=== PATIENT | female | born 1985 | race Caucasian/White ===

== ENCOUNTER → 2016-07-25 | Outpatient (CLI) | payer OTHER ==
[~2016-07-25] MED LIST: CEPH500C2 PO; MULT-589 PO; OXYC-57 PO; POTA-65 PO; POTA1POW PO; PRENTAB26 PO; VITBC PO
[2016-07-25 09:35] LABS: BASO % 0.2 %; BASO ABS # 0.01 K/uL (0-0.2); COMPLETE YES; HEMATOCRIT 31.7 % (37-47); LYMPH % 40.6 %; LYMPH ABS # 2.32 K/uL (1.2-3.4); MEAN CELL VOLUME 77.9 fL (80-100); MEAN CORPUSCULAR HEMOGLOBIN 25.3 pg (25-34); MEAN CORPUSCULAR HGB CONC 32.5 g/dl (32-36); MEAN PLATELET VOLUME 10.5 fL (7.4-10.4); MONO % 9.1 %; NEUT % 50.1 %; PLATELET COUNT 345 K/uL (130-400); RED BLOOD COUNT 4.07 M/uL (4.2-5.4); WHITE BLOOD COUNT 5.71 K/uL (4.8-10.8)
[2016-07-25 09:51] LABS: ALT/SGPT 20 U/L (12-78); AST/SGOT 18 U/L (15-37); CREATININE 0.87 mg/dl (0.60-1.20)
== END | disposition home or self-care (01) ==
LOC: C.LAB1850 08:11
PROVIDERS: ATTEND Obstetrics & Gynecology
DX: O12.13 Gestational proteinuria, third trimester (principal)

== ENCOUNTER → 2016-08-02 | Outpatient (CLI) | payer OTHER ==
[2016-08-02 10:47] LABS: HEMATOCRIT 30.7 % (37-47); MEAN CELL VOLUME 79.1 fL (80-100); MEAN CORPUSCULAR HEMOGLOBIN 25.3 pg (25-34); MEAN CORPUSCULAR HGB CONC 31.9 g/dl (32-36); MEAN PLATELET VOLUME 10.5 fL (7.4-10.4); PLATELET COUNT 353 K/uL (130-400); RED BLOOD COUNT 3.88 M/uL (4.2-5.4)
[2016-08-02 11:24] LABS: ALT/SGPT 21 U/L (12-78); AST/SGOT 16 U/L (15-37); BLOOD UREA NITROGEN 11 mg/dl (7-18); CALCIUM 9.2 mg/dl (8.5-10.1); CARBON DIOXIDE 29 mmol/L (21-32); CHLORIDE 102 mmol/L (98-107); CREATININE 0.63 mg/dl (0.60-1.20); GLUCOSE 87 mg/dl (70-99); POTASSIUM 3.7 mmol/L (3.5-5.1); SODIUM 138 mmol/L (136-145)
[2016-08-02 11:36] LABS: ALB/GLOB RATIO 0.5 (0.9-2); ALKALINE PHOSPHATASE 126 U/L (45-117); PREALBUMIN 24.8 mg/dl (20-40)
== END | disposition home or self-care (01) ==
LOC: C.LAB1850 10:01
PROVIDERS: ATTEND Obstetrics & Gynecology
DX: O12.13 Gestational proteinuria, third trimester (principal)

== ENCOUNTER 2016-08-04 09:45 | Outpatient (CLI) | payer OTHER ==
[~2016-08-04] VITALS: Ht 161.3 cm; Wt 55.5 kg
[~2016-08-04 09:45] MED LIST changes: -OXYC-57 PO; -POTA-65 PO; -POTA1POW PO; -PRENTAB26 PO
[2016-08-04] MEDS ORDERED: POTA1POW PO (10:32)
[2016-08-04] MEDS ORDERED: PRENTAB26 PO (10:32)
[2016-08-04 10:33] VITALS: Ht 161.3 cm; Wt 55.5 kg
[2016-08-04] MEDS ORDERED: ACETAMINOPHEN 325 MG TAB PO PRN (11:00)
[2016-08-04] MEDS ORDERED: ACETAMINOPHEN 325 MG TAB ONE (11:08)
[2016-08-04 11:31] LABS: BASO % 0.1 %; BASO ABS # 0.01 K/uL (0-0.2); COMPLETE YES; EOS % 0.1 %; HEMATOCRIT 29.5 % (37-47); IG% 0.3 %; LYMPH % 27.9 %; LYMPH ABS # 2.08 K/uL (1.2-3.4); MEAN CELL VOLUME 78.9 fL (80-100); MEAN CORPUSCULAR HEMOGLOBIN 25.4 pg (25-34); MEAN CORPUSCULAR HGB CONC 32.2 g/dl (32-36); MEAN PLATELET VOLUME 10.3 fL (7.4-10.4); NEUT % 63.6 %; PLATELET COUNT 341 K/uL (130-400); RED BLOOD COUNT 3.74 M/uL (4.2-5.4); WHITE BLOOD COUNT 7.46 K/uL (4.8-10.8)
[2016-08-04 13:46] LABS: URINE APPEARANCE CLOUDY (CLEAR); URINE BILIRUBIN NEG (NEG); URINE COLOR DK YELLOW; URINE NITRITE NEG (NEG); URINE PH >= 9.0 (4.5-7.5); URINE SPECIFIC GRAVITY 1.027 (1.000-1.030); UROBILINOGEN NEG (NEG)
[2016-08-04 13:53] LABS: MANUAL MICROSCOPIC REQUIRED? NO; REVIEW REQ? NO; SULFASALICYLIC ACID NEG (NEG)
[2016-08-04] MEDS ORDERED: OXYCODONE/ACETAMINOPHEN 5-325 TAB PO PRN (14:00)
[2016-08-04 14:03] LABS: ALT/SGPT 16 U/L (12-78); AST/SGOT 18 U/L (15-37); BLOOD UREA NITROGEN 14 mg/dl (7-18); BUN/CREATININE RATIO 22.2 (10-20); CALCIUM 8.9 mg/dl (8.5-10.1); CARBON DIOXIDE 24 mmol/L (21-32); CHLORIDE 101 mmol/L (98-107); CREATININE 0.63 mg/dl (0.60-1.20); GLUCOSE 66 mg/dl (70-99); POTASSIUM 3.8 mmol/L (3.5-5.1); SODIUM 137 mmol/L (136-145)
[2016-08-04 14:05] LABS: URINE TOTAL PROTEIN < 5.0 mg/dl (0-11.9)
--- NOTE | 2016-08-04 14:22 | DIAGNOSTIC IMAGING REPORT ---
BIOPHYSICAL PROFILE ULTRASOUND CLINICAL HISTORY: Decreased movement on physical exam. COMPARISON STUDY: Pelvic ultrasound 05/19/2014. FINDINGS: There is a single viable intrauterine gestation demonstrating a heart rate of 131 bpm. Amniotic fluid index was 17 cm. The fetus is in a cephalic presentation. The femur length is 6.93 cm consistent with a 35 week and 4 day intrauterine gestation. There is movement, tone, and breathing demonstrated during the examination. There is an anterior placenta. No evidence for subchorionic hematoma. Multiple venous lakes are identified within the placenta. IMPRESSION: 1. Biophysical profile score was 8 out of 8. 2. heart rate was 131 bpm. Electronically signed by: Panchito Sims M.D. 08/04/2016 2:20 PM Dictated Date/Time: 08/04/2016 2:17 PM
[2016-08-04] MEDS ORDERED: OXYC-57 PO (15:17)
[2016-08-04 15:18] LABS: ALKALINE PHOSPHATASE 120 U/L (45-117)
--- NOTE | 2016-08-04 15:19 | Discharge Instructions ---
Discharge Instructions Admission Reason for Admission: R/O Pain Discharge Discharge Diagnosis / Problem: AT 36 WEEKS, PELVIC PAIN Discharge Goals Goal(s): Continuing OB care Activity Recommendations Activity Limitations: resume your previous activity . Instructions / Follow-Up Instructions / Follow-Up SPECIAL CARE INSTRUCTIONS: Call Doctor if: * Regular contractions every 5 minutes or greater than contractions in one hour. * Bleeding * Water breaks or is leaking * Decreased movement * Fever >100.4 degrees F * Pain not relieved by routine measures or pain medication ordered. FOLLOW UP VISIT: Return to Labor and Delivery on for /call for appointment time . Follow-up Visit with: _OB OFFICE____ When:__TUES SCHEDULED.___ Current Hospital Diet Patient's current hospital diet: Discharge Diet Recommended Diet: Regular Diet Pending Studies Studies pending at discharge: no Medical Emergencies . Who to Call and When: Medical Emergencies: If at any time you feel your situation is an emergency, please call 911 immediately. . Non-Emergent Contact Non-Emergency issues call your: Certified Travel Counselor . . "Provider Documentation" section prepared by Nadine Callahan. VTE Core Measure Inpt VTE Proph given/why not?: Treatment not indicated [place] Drug Monitoring Program Search Results: patient reviewed within database
== END 2016-08-04 15:39 | disposition home or self-care (01) ==
LOC: C.LD 09:45 → C.OPB 09:45
PROVIDERS: ATTEND Obstetrics & Gynecology
DX: O36.8130 Decreased fetal movements, third trimester, not applicable or unspecified (principal); O12.13 Gestational proteinuria, third trimester; R10.2 Pelvic and perineal pain; Z3A.36 36 weeks gestation of pregnancy

== ENCOUNTER → 2016-08-09 | Outpatient (CLI) | payer OTHER ==
[~2016-08-09] MED LIST changes: -CEPH500C2 PO; -MULT-589 PO; +OXYC-57 PO; +POTA-65 PO; +POTA1POW PO; +PRENTAB26 PO; -VITBC PO
[2016-08-18 20:14] LABS: CHENODEOXYCHOLIC ACID 1.8 umol/L (< OR = 3.1); DEOXYCHOLIC ACID 6.9 umol/L (< OR = 2.4); TOTAL BILE ACIDS 16.7 umol/L (< OR = 6.8)
== END | disposition home or self-care (01) ==
LOC: C.LAB1850 14:01
PROVIDERS: ATTEND Obstetrics & Gynecology
DX: O26.892 Other specified pregnancy related conditions, second trimester (principal)

== ENCOUNTER 2016-08-17 06:55 | Inpatient (IN) | payer OTHER ==
[~2016-08-17] VITALS: Ht 160 cm; Wt 55.0 kg
[~2016-08-17 06:55] MED LIST changes: -POTA-65 PO
[2016-08-17] MEDS ORDERED: LACTATED RINGER'S 1000ML 1,000 ML IV PRN (07:03)
[2016-08-17] MEDS ORDERED: LACTATED RINGER'S 1000ML 1,000 ML IV SCH (07:03)
[2016-08-17] MEDS ORDERED: BUPIVACAINE 0.25% 30 ML VIAL ONE (07:11)
[2016-08-17] MEDS ORDERED: EpHEDrine SULFATE INJ 50 MG/ML AMP ONE (07:12)
[2016-08-17] MEDS ORDERED: FENTANYL CITRATE INJ 50 MCG/1 ML 2 ML VIAL ONE (07:12)
[2016-08-17] MEDS ORDERED: FENTANYL 2MCG/ML ROPIV 1.25MG/ML 100ML BAG EPI ONE (07:12)
[2016-08-17] MEDS ORDERED: PENICILLIN G POTASSIUM IV 3 MU in DEXTROSE 5% 100ML 100 ML IV PRN (07:15)
[2016-08-17] MEDS ORDERED: PENICILLIN G POTASSIUM IV 6 MU in DEXTROSE 5% 250ML 250 ML IV ONE (07:30)
[2016-08-17] MEDS ORDERED: LACTATED RINGER'S 1000ML 500 ML IV PRN (07:31)
[2016-08-17] MEDS ORDERED: NALOXONE HCL INJ 1 MG in SODIUM CHLORIDE 0.9% 1000ML 1,000 ML IV PRN (07:31)
[2016-08-17] MEDS ORDERED: FENTANYL 2MCG/ML ROPIV 1.25MG/ML 100ML BAG EPI PRN (07:45)
[2016-08-17] MEDS ORDERED: ONDANSETRON INJ 2 MG/ML 2 ML VIAL IV PRN (07:45)
[2016-08-17] MEDS ORDERED: NALBUPHINE HCL INJ 10 MG/ML AMP IV PRN (07:45)
[2016-08-17] MEDS ORDERED: DiphenhydrAMINE HCL 50 MG/ML VIAL IV PRN (07:45)
[2016-08-17] MEDS ORDERED: EpHEDrine SULFATE INJ 50 MG/ML AMP IV PRN (07:45)
[2016-08-17] MEDS ORDERED: PROMETHAZINE HCL INJ 25 MG in SODIUM CHLORIDE 0.9% 50ML 50 ML IV PRN (07:45)
[2016-08-17] MEDS ORDERED: NALOXONE HCL INJ 0.4 MG/1 ML VIAL/CARP IV PRN (07:45)
[2016-08-17 07:51] LABS: HEMATOCRIT 29.8 % (37-47); MEAN CELL VOLUME 76.8 fL (80-100); MEAN CORPUSCULAR HEMOGLOBIN 24.2 pg (25-34); MEAN PLATELET VOLUME 10.2 fL (7.4-10.4); PLATELET COUNT 363 K/uL (130-400); RED BLOOD COUNT 3.88 M/uL (4.2-5.4); WHITE BLOOD COUNT 8.48 K/uL (4.8-10.8)
[2016-08-17 07:58] LABS: MEAN CORPUSCULAR HGB CONC 31.5 g/dl (32-36)
[2016-08-17 07:59] LABS: INR 0.9 (0.9-1.1)
[2016-08-17 08:15] LABS: ALT/SGPT 17 U/L (12-78); AST/SGOT 18 U/L (15-37); CREATININE 0.81 mg/dl (0.60-1.20); URIC ACID 5.4 mg/dl (2.6-7.2)
[2016-08-17] MEDS ORDERED: OXYTOCIN 30 UNITS/500ML NSS IV ONE (08:20)
[2016-08-17] MEDS ORDERED: BENZOCAINE 20% AER SPR 82.5 GM CAN EXT PRN (09:00)
[2016-08-17] MEDS ORDERED: ACETAMINOPHEN/CODEINE 300/30MG TAB PO PRN ×2 (09:00)
[2016-08-17] MEDS ORDERED: HYDROCORTISONE ACETATE 25 MG SUPP PR PRN (09:00)
[2016-08-17] MEDS ORDERED: OXYTOCIN 30 UNITS/500ML NSS IV PRN (09:00)
[2016-08-17] MEDS ORDERED: ACETAMINOPHEN 325 MG TAB PO PRN (09:00)
[2016-08-17] MEDS ORDERED: LANOLIN OINT EXT PRN ×2 (09:00)
[2016-08-17] MEDS ORDERED: SUPERCREAM 0.870 % 15GM JAR EXT PRN (09:00)
[2016-08-17] MEDS: IBUPROFEN 600 MG TAB PO PRN ×4 (09:14→23:33)
--- NOTE | 2016-08-17 09:16 | DELIVERY SUMMARY ---
DATE OF OPERATION: 08/17/2016 DATE OF DELIVERY: 08/17/2016 PREDELIVERY DIAGNOSES: 1. A 31-year-old G7, P4-0-2-4 at 38 weeks 2 days. 2. Spontaneous labor. 3. Group B strep positive. 4. Gestational proteinuria without hypertension. 5. Pruritus gravidarum. 6. Bicornuate uterus. 7. History of stillbirths in family due to cholestasis of . POSTDELIVERY DIAGNOSES: Same. DELIVERING SURGEON: Dr. Betts. WAD PRINTING MACHINE OPERATOR: Dr. Byrne. FINDINGS: Viable female . Apgars 9 and 9. Weight pending. Please see nursing notes. First degree perineal laceration which is hemostatic. PROCEDURE: Spontaneous vaginal delivery. ESTIMATED BLOOD LOSS: 300 mL. DESCRIPTION OF DELIVERY: The patient progressed to complete with spinal anesthesia. She felt the urge to push and began to push and spontaneously vaginally delivered a viable female with Apgars 9 and 9. The head delivered. Nuchal cord x2 was noted and baby delivered through. The anterior and posterior shoulder delivered spontaneously followed by the body. The baby was placed on mother's abdomen where a spontaneous cry was heard. The nuchal cord was unwrapped from infant's neck. It was not tight. The cord was doubly clamped and cut. A segment of cord was retained for cord gases. Cord blood was obtained. The placenta spontaneously delivered intact with a 3-vessel cord. The uterus clamped down. Pitocin was given. The uterus and vagina were swept of all clots and debris. The cervix, vagina and perineum were inspected and a first degree perineal laceration was noted. This was hemostatic and therefore not repaired. Excellent hemostasis was observed. The patient and baby tolerated the procedure well and are in stable and good condition. I attest to the content of the Intraoperative Record and any orders documented therein. Any exceptio ns are noted below.
[2016-08-17 10:04] VITALS: Ht 160 cm; Wt 55.0 kg
[2016-08-17 11:20] VITALS: BP 95/52; PULSE 75; TEMP 36.7
[2016-08-17] MEDS: POTASSIUM CHLORIDE 20 MEQ TABCR PO SCH ×2 (13:55→20:51)
[2016-08-17] MEDS ORDERED: POTASSIUM CHLORIDE PWD 20 MEQ PACK PO SCH (14:00)
[2016-08-17 15:25] VITALS: BP 104/69; PULSE 74; TEMP 36.3
[2016-08-17] MEDS: DOCUSATE SODIUM 100 MG CAP PO SCH (20:07)
[2016-08-17 20:15] VITALS: BP 107/67; PULSE 88; TEMP 36.7; O2SAT 99
[2016-08-17 23:20] VITALS: BP 108/62; PULSE 85; TEMP 36.5; O2SAT 98
[2016-08-18 00:55] VITALS: BP 100/64
[2016-08-18 04:30] VITALS: BP 99/67; PULSE 79; TEMP 36.6; O2SAT 99
[2016-08-18] MEDS: IBUPROFEN 600 MG TAB PO PRN (04:44)
[2016-08-18 06:20] LABS: HEMATOCRIT 26.3 % (37-47)
--- NOTE | 2016-08-18 07:01 | Progress Note ---
Subjective Aug 18, 2016. Subjective conversation w/ patient, physical exam Ambulation: ambulating normally Voiding: no voiding problems Passing Gas: Yes Diet Tolerance: Regular Diet Lochia: Small Feeding Type: Breast Feeding Pain: No pain reported this morning Review of Systems Constitutional: No chills, No fever Respiratory: No cough, No shortness of breath Cardiac: No chest pain Breast: No breast pain Abdomen: No nausea, No pain, No vomiting Female : No dysuria Objective Vital Signs Date Time Temp Pulse Resp B/P Pulse Ox O2 Delivery O2 Flow Rate FiO2 08/18/16 04:30 36.6 79 16 99/67 99 Room Air 08/18/16 00:55 100/64 08/17/16 23:20 36.5 85 16 108/62 98 Room Air 08/17/16 23:20 98 Room Air 08/17/16 20:15 36.7 88 20 107/67 99 Room Air 08/17/16 15:50 Room Air 08/17/16 15:25 36.3 74 18 104/69 Room Air 08/17/16 11:20 36.7 75 18 95/52 08/17/16 11:20 Room Air Physical Exam General Appearance: WELL-APPEARING, WD/WN, NO APPARENT DISTRESS Respiratory/Chest: lungs clear, normal breath sounds Cardiovascular: regular rate, rhythm, no gallop, no murmur Abdomen: non tender, soft Fundus: Firm, Relation to Umbilicus (At umbilicus) Extremities: no calf tenderness Laboratory Results Last 24 Hours Test 08/17/16 07:20 08/17/16 07:30 08/18/16 05:40 Creatinine 0.81 mg/dl Estimated GFR () 113.0 Estimated GFR (Non- 97.5 Uric Acid 5.4 mg/dl Aspartate Amino Transf (AST/SGOT) 18 U/L Alanine Aminotransferase (ALT/SGPT) 17 U/L White Blood Count 8.48 K/uL Red Blood Count 3.88 M/uL Hemoglobin 9.4 g/dL 8.2 g/dL Hematocrit 29.8 % 26.3 % Mean Corpuscular Volume 76.8 fL Mean Corpuscular Hemoglobin 24.2 pg Mean Corpuscular Hemoglobin Concent 31.5 g/dl RDW Standard Deviation 42.4 fL RDW Coefficient of Variation 15.4 % Platelet Count 363 K/uL Mean Platelet Volume 10.2 fL Prothrombin Time 10.0 SECONDS Prothromb Time International Ratio 0.9 Activated Partial Thromboplast Time 24.7 SECONDS Partial Thromboplastin Ratio 1.0 Lactate Dehydrogenase 145 U/L Medications Current Inpatient Medications Medications (Trade) Dose Ordered Sig/Geraldine Route Start Time Stop Time Status Last Admin Dose Admin Penicillin G Potassium 3 mu/ Dextrose 106 ml @ 100 mls/hr Q4H PRN IV 08/17/16 07:15 08/19/16 07:14 Lactated Ringer's 1,000 ml @ 125 mls/hr Q8H IV 08/17/16 07:03 08/19/16 07:02 Lactated Ringer's (Lr 1000ml) 1,000 ml @ 999 mls/hr Q1H1M PRN IV 08/17/16 07:03 09/16/16 07:02 08/17/16 07:27 999 MLS/HR Fentanyl/ Ropivacaine (Fentanyl 2MCG/ Ml/Ropivacaine 1.25MG/ML) 100 ml PRN PRN EPI 08/17/16 07:45 08/18/16 07:44 Naloxone HCl 0.1 mg 0.1 mg UD PRN IV 08/17/16 07:45 08/18/16 07:44 Lactated Ringer's (Lr 1000ml) 500 ml @ 999 mls/hr Q31M PRN IV 08/17/16 07:31 08/18/16 07:30 Ephedrine Sulfate (EpHEDrine SULFATE INJ) 10 mg Q5M PRN IV 08/17/16 07:45 08/18/16 07:44 Diphenhydramine HCl (Benadryl Inj) 25 mg Q6H PRN IV 08/17/16 07:45 08/18/16 07:44 Nalbuphine HCl 5 mg 5 mg Q10M PRN IV 08/17/16 07:45 08/18/16 07:44 Naloxone HCl/ Sodium Chloride (Narcan Inj/Nss 1000ml) 1,002.5 ml @ 50 mls/hr Q20H3M PRN IV 08/17/16 07:31 08/18/16 07:30 Ondansetron HCl 4 mg 4 mg Q6H PRN IV 08/17/16 07:45 08/18/16 07:44 Promethazine HCl/ Sodium Chloride (Phenergan Inj/ Nss 50ml) 51 ml @ 200 mls/hr Q6H PRN IV 08/17/16 07:45 08/18/16 07:44 Oxytocin (Pitocin IV) 30 units UD PRN IV 08/17/16 09:00 09/16/16 08:59 Benzocaine (Dermoplast Aero Spr) 1 appln PRN PRN EXT 08/17/16 09:00 09/16/16 08:59 08/17/16 13:08 82.5 APPLN Cocaine HCl (Supercream 0.870% Cr) BID PRN EXT 08/17/16 09:00 08/31/16 08:59 Hydrocortisone Acetate (Anusol Hc Supp) 25 mg BID PRN IN 08/17/16 09:00 09/16/16 08:59 Lanolin (Lanolin Oint) PRN PRN EXT 08/17/16 09:00 09/16/16 08:59 Prenat Multivit/ [place]anco/Iron/Folic Ac ( Vitamin Tab) 1 tab DAILY PO 08/18/16 08:00 09/17/16 07:59 Ibuprofen (Motrin Tab) 600 mg Q4H PRN PO 08/17/16 09:00 09/16/16 08:59 08/18/16 04:44 600 MG Acetaminophen (Tylenol Tab) 650 mg Q6H PRN PO 08/17/16 09:00 09/16/16 08:59 08/17/16 16:10 650 MG Acetaminophen/ Codeine Phosphate (Tylenol w/ Codeine #3 Tab) 1 tab Q4H PRN PO 08/17/16 09:00 09/16/16 08:59 Acetaminophen/ Codeine Phosphate (Tylenol w/ Codeine #3 Tab) 2 tab Q4H PRN PO 08/17/16 09:00 09/16/16 08:59 Bisacodyl (Dulcolax Tab) 5 mg 20 PO 08/18/16 20:00 08/18/16 20:01 Bisacodyl (Dulcolax Supp) 10 mg DAILY PRN IN 08/19/16 07:00 Docusate Sodium (coLACE CAP) 100 mg BID PO 08/17/16 20:00 09/16/16 19:59 08/17/16 20:07 100 MG Potassium Chloride (Klor-Con Tab) 20 meq TID PO 08/17/16 14:00 09/16/16 13:59 08/17/16 20:51 20 MEQ Assessment and Plan Post- Day#: 1 Continue Routine Care: - Vital Signs reviewed and WNL (temp max 36.6) - Blood Type: B+, GBS Positive, Rubella Immune - Patient doing well clinically - Encourage Ambulation today - Tolerating PO Diet - Pain well controlled Resident Physician Supervision Note: I was present with Dr. Byrne during the history and exam. I discussed the case with the resident and agree with the findings and plan as documented in the note. Any exceptions or clarifications are listed here: PPD#1 doing well. Continue routine care. Anticipate discharge home tomorrow. Documented By: Xi Betts
[2016-08-18] MEDS: PRENATAL VITAMIN TAB PO SCH (07:54)
[2016-08-18] MEDS: POTASSIUM CHLORIDE 20 MEQ TABCR PO SCH ×3 (07:54→20:04)
[2016-08-18] MEDS: DOCUSATE SODIUM 100 MG CAP PO SCH ×2 (07:54→20:04)
[2016-08-18 08:00] VITALS: BP 96/61; PULSE 77; TEMP 36.5
[2016-08-18 15:30] VITALS: BP 107/75; PULSE 75; TEMP 36.4
[2016-08-18] MEDS ORDERED: BISACODYL 5 MG TABEC PO SCH (20:00)
[2016-08-19 00:35] VITALS: BP 100/67; PULSE 89; TEMP 36.5
[2016-08-19] MEDS: IBUPROFEN 600 MG TAB PO PRN ×2 (00:36→08:30)
--- NOTE | 2016-08-19 06:57 | Progress Note ---
Subjective Aug 19, 2016. Subjective conversation w/ patient, physical exam Ambulation: ambulating normally Voiding: no voiding problems Passing Gas: Yes Diet Tolerance: Regular Diet Lochia: Small Feeding Type: Breast Feeding Pain: No pain reported this morning Review of Systems Constitutional: No chills, No fever Respiratory: No cough, No shortness of breath Cardiac: No chest pain Breast: No breast pain Abdomen: No nausea, No pain, No vomiting Female : No dysuria Objective Vital Signs Date Time Temp Pulse Resp B/P Pulse Ox O2 Delivery O2 Flow Rate FiO2 08/19/16 00:35 Room Air 08/19/16 00:35 36.5 89 16 100/67 Room Air 08/18/16 15:30 36.4 75 20 107/75 Room Air 08/18/16 15:30 Room Air 08/18/16 08:00 36.5 77 16 96/61 Room Air 08/18/16 07:45 Room Air Physical Exam General Appearance: WELL-APPEARING, WD/WN, NO APPARENT DISTRESS Respiratory/Chest: lungs clear, normal breath sounds Cardiovascular: regular rate, rhythm, no gallop, no murmur Abdomen: non tender, soft Fundus: Firm, Relation to Umbilicus (1cm below umbilicus) Extremities: no calf tenderness Medications Current Inpatient Medications Medications (Trade) Dose Ordered Sig/Geraldine Route Start Time Stop Time Status Last Admin Dose Admin Penicillin G Potassium 3 mu/ Dextrose 106 ml @ 100 mls/hr Q4H PRN IV 08/17/16 07:15 08/19/16 07:14 Lactated Ringer's 1,000 ml @ 125 mls/hr Q8H IV 08/17/16 07:03 08/19/16 07:02 Lactated Ringer's (Lr 1000ml) 1,000 ml @ 999 mls/hr Q1H1M PRN IV 08/17/16 07:03 09/16/16 07:02 08/17/16 07:27 999 MLS/HR Oxytocin (Pitocin IV) 30 units UD PRN IV 08/17/16 09:00 09/16/16 08:59 Benzocaine (Dermoplast Aero Spr) 1 appln PRN PRN EXT 08/17/16 09:00 09/16/16 08:59 08/17/16 13:08 82.5 APPLN Cocaine HCl (Supercream 0.870% Cr) BID PRN EXT 08/17/16 09:00 08/31/16 08:59 Hydrocortisone Acetate (Anusol Hc Supp) 25 mg BID PRN [place] 08/17/16 09:00 09/16/16 08:59 Lanolin (Lanolin Oint) PRN PRN EXT 08/17/16 09:00 09/16/16 08:59 Prenat Multivit/ Conveyor Belt Installer/Iron/Folic Ac ( Vitamin Tab) 1 tab DAILY PO 08/18/16 08:00 09/17/16 07:59 08/18/16 07:54 1 TAB Ibuprofen (Motrin Tab) 600 mg Q4H PRN PO 08/17/16 09:00 09/16/16 08:59 08/19/16 00:36 600 MG Acetaminophen (Tylenol Tab) 650 mg Q6H PRN PO 08/17/16 09:00 09/16/16 08:59 08/17/16 16:10 650 MG Acetaminophen/ Codeine Phosphate (Tylenol w/ Codeine #3 Tab) 1 tab Q4H PRN PO 08/17/16 09:00 09/16/16 08:59 Acetaminophen/ Codeine Phosphate (Tylenol w/ Codeine #3 Tab) 2 tab Q4H PRN PO 08/17/16 09:00 09/16/16 08:59 Bisacodyl (Dulcolax Supp) 10 mg DAILY PRN [place] 08/19/16 07:00 Docusate Sodium (coLACE CAP) 100 mg BID PO 08/17/16 20:00 09/16/16 19:59 08/18/16 20:04 100 MG Potassium Chloride (Klor-Con Tab) 20 meq TID PO 08/17/16 14:00 09/16/16 13:59 08/18/16 20:04 20 MEQ Assessment and Plan Post- Day#: 2 Continue Routine Care: - Vital Signs reviewed and WNL (temp max 36.5) - Blood Type: B+, GBS Positive, Rubella Immune - Patient doing well clinically - Encourage Ambulation today - Tolerating PO Diet - Pain well controlled - Discharge today Resident Physician Supervision Note: I interviewed and examined the patient. Discussed with Dr. Byrne and agree with findings and plan as documented in the note. Any exceptions or clarifications are listed here: [None] Documented By: Trent Lawrence
--- NOTE | 2016-08-19 06:59 | Discharge Instructions ---
Discharge Instructions Admission Reason for Admission: Gestational Proteinuria Discharge Discharge Diagnosis / Problem: Vaginal Delivery Discharge Goals Goal(s): Routine recovery after delivery Medications Continue Dispensed Medications: supercream, dermaplast, tucks, lansinoh Activity Recommendations Activity Limitations: per Instructions/Follow-up section . Instructions / Follow-Up Instructions / Follow-Up ACTIVITY RECOMMENDATIONS: * Gradual return to full activity over the next 2-3 weeks. * No lifting - nothing heavier than baby over the next 2-3 weeks. * Do not engage in vigorous exercise, sexual activity or sports until cleared by your physician. * Do not drive or operate any motorized equipment until cleared by your physician. * You may shower/bathe daily. MEDICATIONS: For discomfort or pain, you may use Acetaminophen (Tylenol), Ibuprofen (Advil), or Naproxen (Aleve) following the package directions. For constipation you may use Colace following the package directions. BREAST CARE: If you are not breast feeding: * Wear a supportive bra 24 hours a day for one to two weeks. * Avoid stimulating your breasts and nipples as much as possible during the first few weeks after delivery. * When taking a shower, have the warm water hit your back, not breasts. * When your breasts feel full, apply ice packs. Usually three to four times a day helps ease the discomfort. * Take a mild pain medication (Tylenol / Motrin) when you are uncomfortable. If breast feeding: * Use breast milk to lubricate nipples. Lansinoh cream may be used for sore nipples. You do not need to remove cream prior to breast feeding. If using a different brand of cream, check the label for directions regarding removal of cream prior to nursing. * Wear a supportive bra. * If having problems with breasts or breast feeding, call a outbound sales consultant or your health care provider. EPISIOTOMY CARE: After delivery, if you have an episiotomy (stitches), the following steps will ease discomfort and aid healing. * For the first 24 hours after delivery, place ice packs next to your episiotomy to help reduce swelling. * After the first 24 hour-period, sitz baths, either portable or in the tub, are suggested. A shower with a shower arm sprayed over the episiotomy may be comforting. * Ashlie care should be done after each voiding and bowel movement. Squirt warm water from a plastic bottle over the perineum (region of the body between the anus and urinary opening) and pat dry. * Use Dermoplast to ease discomfort. Shake container. [place] directly over the episiotomy. Place a Tucks on a clean sanitary pad next to your episiotomy. SPECIAL CARE INSTRUCTIONS: When you are discharged from the hospital, it is important for you to follow the instructions listed below: * During the first week at home, you should be able to care for yourself and your baby. In addition, the usual light household activities are encouraged. * Limit your activities to the way you feel. Do not try to clean the house or move furniture. Be sensible. * If you actively engage in sports and have done so up until the time of your delivery, you may resume these activities as soon as you feel able. This may take up to one month or even longer. Use good judgment. * Continue to take your vitamins for at least six weeks after the of your baby. * Your diet need not be limited unless you were on a special diet before your delivery. Breast-feeding mothers need around 2500 calories per day and at least 64-80 ounces of fluid per day (8 to 10 glasses). * You should eat foods from the four major food groups. Crash diets or fad diets are to be avoided. Eating lean meats, fresh fruits and vegetables, low-fat dairy products, high fiber foods and a regular exercise program, will help you get back to your pre- weight without putting your health at risk. * Constipation is sometimes a problem after delivery. Take a mild laxative as needed. If breast feeding, Milk of Magnesia is acceptable to use. You may use a suppository or Fleets enema if no episiotomy. * A daily shower or tub bath is suggested. Be sure to thoroughly and gently dry the perineum. * A bloody vaginal discharge will usually continue until around four weeks post . A small amount of bleeding may continue for as long as six weeks. Vaginal discharge changes from the bright red bleeding after delivery to pink then brownish and finally yellowish-pink before becoming white and disappearing. * Bleeding may increase with activity. Your first period may come in 4-8 weeks. If you are breast feeding, your period may be delayed even longer. * [place] (sex) can begin whenever both you and your partner feel comfortable and do not have any form of genital infection. It is recommended that you wait at least six weeks for internal and external healing to occur. If you have questions, please talk to your health care practitioner. A condom should be used to prevent infection and . * Foreplay, gentle intercourse and lubrication is very important the first several times to prevent pain. A water-based lubricant such as K-Y jelly or Astroglide may be used. * If you have RH negative blood and your baby is RH positive, you will receive RHOGAM by injection prior to discharge. The nurse will give you a card to keep with you that has the date and place that you received RHOGAM after delivery. * During your care, you had a Rubella screen done to check for the presence of rubella antibodies in your blood. If your test was negative, you will receive a Rubella vaccine prior to discharge. This vaccine may cause a fever, soreness at the injection site and flu-like symptoms. If these symptoms persist, notify your health care practitioner. is not advised for one month after a Rubella vaccine. * Verbalizes understanding of car seat law as reviewed with patient nursing. * Car Seat hand-out given and reviewed with patient by nursing. * Shaken baby information reviewed with patient by nursing. Call you doctor if: * Heavy bleeding (saturating several pads an hour) or passing clots the size of your fist. * A fever >101 degrees F (38.3 degrees C) on two occasions four hours apart and /or chills. * Unusual pain in the pelvic or vaginal areas. * "Baby Blues" lasting longer than two weeks. If you have any questions or concerns, call your health care practitioner at . FOLLOW UP VISIT: * Please call the office at to schedule a 6 week examination. It is important you keep this appointment. It is important for you to make arrangements for either yearly or twice yearly check-ups thereafter. Current Hospital Diet Patient's current hospital diet: Regular Diet Discharge Diet Recommended Diet: Regular Diet Pending Studies Studies pending at discharge: no Medical Emergencies . Who to Call and When: Medical Emergencies: If at any time you feel your situation is an emergency, please call 911 immediately. . Non-Emergent Contact Non-Emergency issues call your: Forest Management Professor . . "Provider Documentation" section prepared by Elia Byrne. VTE Core Measure Inpt VTE Proph given/why not?: Treatment not indicated
[2016-08-19] MEDS ORDERED: BISACODYL 10 MG SUPP PR PRN (07:00)
[2016-08-19 07:50] VITALS: BP 103/69; PULSE 80; TEMP 36.6
[2016-08-19] MEDS: PRENATAL VITAMIN TAB PO SCH (08:28)
[2016-08-19] MEDS: DOCUSATE SODIUM 100 MG CAP PO SCH (08:28)
[2016-08-19] MEDS: POTASSIUM CHLORIDE 20 MEQ TABCR PO SCH (08:29)
[2016-08-19 10:20] VITALS: BP_DIAS 69; PULSE 80; TEMP 36.6
== END 2016-08-19 10:20 | disposition home or self-care (01) | DRG 775 ==
LOC: C.OPB 06:55 → C.LD 06:58 → C.OPB 07:05 → C.OBG 11:27
PROVIDERS: ADMIT Obstetrics & Gynecology; ATTEND Obstetrics & Gynecology
PROC: 10E0XZZ Delivery of Products of Conception, External Approach (ICD-10-PCS; principal; 2016-08-17)
DX: O12.13 Gestational proteinuria, third trimester (principal); O09.93 Supervision of high risk pregnancy, unspecified, third trimester; Z3A.38 38 weeks gestation of pregnancy; O99.824 Streptococcus B carrier state complicating childbirth; O26.893 Other specified pregnancy related conditions, third trimester; O34.03 Maternal care for unspecified congenital malformation of uterus, third trimester; O70.0 First degree perineal laceration during delivery; O69.81X0 Labor and delivery complicated by cord around neck, without compression, not applicable or unspecified; Z37.0 Single live birth; Z84.89 Family history of other specified conditions

== ENCOUNTER 2016-08-28 17:12 | Inpatient (IN) | payer OTHER ==
[~2016-08-28] VITALS: Ht 162.6 cm; Wt 55.0 kg
[~2016-08-28 17:12] MED LIST changes: -OXYC-57 PO; -POTA1POW PO
[2016-08-28] MEDS ORDERED: SODIUM CHLORIDE 0.9% 1000ML 1,000 ML IV STA ×3 (18:57→23:03)
--- NOTE | 2016-08-28 19:02 | EMERGENCY ROOM VISIT NOTE ---
History Report prepared by Rolo: Mk Aviles Under the Supervision of: Dr. Wilmer Daniel M.D. First contact with patient: 18:51 Chief Complaint: OTHER COMPLAINT Stated Complaint: ACUTE RENAL FAILURE History of Present Illness The patient is a 31 year old female who presents to the Emergency Room with complaints of acute abnormal blood work that was acquired earlier today. The patient was seen at [facility] at approximately 1400 today because she has not been feeling well for the past week. She received a call from [facility] informing her that her lab work showed acute renal failure. The patient's symptoms include intermittent lightheadedness, headaches, and lower back pain. The back pain is worse on the right side than the left. The patient also notes that she has been urinating infrequently despite keeping up with fluids and has also been experiencing burning with urination. The patient gave to her fifth child 9 days ago. The child was a female born at 28 weeks gestation. The was born at [facility] and was not transferred. The patient is the . She did not have any complications of her previous pregnancies. Source of History: patient Onset: today Position: other (blood) Quality: other (abnormal labs) Timing: other (acute) Associated Symptoms: + back pain, + headache, + urinary symptoms Review of Systems See HPI for pertinent positives & negatives. A total of 10 systems reviewed and were otherwise negative. Past Medical & Surgical Medical Problems: (1) Gestational proteinuria (2) Hypercalcemia (3) Normal labor and delivery (4) Perineal pain in female (5) with 36 completed weeks gestation (6) Vaginal delivery Family History No significant family history Social History Smoking Status: Never Smoker Marital Status: Housing Status: lives with family Occupation Status: unemployed Current/Historical Medications Scheduled Multivit/Min/Iron/Fol Ac/Pren ( Vitamin), 1 TAB PO DAILY Potassium Chloride (Potassium Chloride ER), 20 MEQ PO TID Allergies Coded Allergies: No Known Allergies (Verified , 08/04/16) Physical Exam Vital Signs Date Time Temp Pulse Resp B/P Pulse Ox O2 Delivery O2 Flow Rate FiO2 08/28/16 21:40 102 16 133/82 08/28/16 20:42 68 18 124/83 94 Room Air 08/28/16 19:27 88 16 137/94 96 08/28/16 19:25 73 08/28/16 18:43 86 18 135/92 97 Room Air 08/28/16 17:24 37.3 114 17 123/86 96 Room Air Physical Exam GENERAL: Patient is a healthy-appearing well-nourished HEAD: Normocephalic atraumatic EYES: Ocular movements intact pupils equal and react to light OROPHARYNX mucous membranes are moist no exudates present no erythema or edema present NECK: Supple no nuchal rigidity CHEST: Good equal expansion LUNGS: Clear and equal to auscultation CARDIAC: Normal S1 and S2 ABDOMEN: Soft nontender no guarding BACK: No CVA tenderness EXTREMITIES: No pain upon palpation normal muscle strength in all groups no clubbing cyanosis or edema NEURO: Patient is following commands is answering questions appropriately. Alert and oriented x3 Cranial Nerves 2-12 grossly intact Medical Decision & Procedures ER Provider Diagnostic Interpretation: US results as stated below per my review and radiologist interpretation: EXAMINATION: RENAL ULTRASOUND CLINICAL HISTORY: Acute renal failure COMPARISON STUDY: 12/23/2013 FINDINGS: The right kidney measures 12.0 cm. The left kidney measures 13.4 cm.. There is no evidence of hydronephrosis. There are no renal masses. There is mild increase in renal cortical echogenicity, consistent with medical renal disease. No bladder abnormalities are visualized. Bilateral ureteral jets were visualized. There is fluid and debris within a thickened endometrium. IMPRESSION : 1. Increased renal cortical echogenicity, consistent with medical renal disease 2. No evidence of hydronephrosis 3. Incidentally noted fluid and debris within the endometrial cavity Electronically signed by: Otilio Bruno M.D. 08/28/2016 8:31 PM Dictated Date/Time: 08/28/2016 8:29 PM Laboratory Results Test 08/28/16 19:19 08/28/16 20:39 08/28/16 21:28 Prothrombin Time 10.2 SECONDS (9.0-12.0) Prothromb Time International Ratio 1.0 (0.9-1.1) Lipase 193 U/L (73-393) Lyme Disease IgG Antibody NEG (NEG) Lyme Disease IgM Antibody NEG (NEG) Urine Color YELLOW Urine Appearance CLOUDY (CLEAR) Urine pH >= 9.0 (4.5-7.5) Urine Specific [place] 1.013 (1.000-1.030) Urine Protein 1+ (NEG) Urine Glucose (UA) NEG (NEG) Urine Ketones NEG (NEG) Urine Occult Blood NEG (NEG) Urine Nitrite NEG (NEG) Urine Bilirubin NEG (NEG) Urine Urobilinogen NEG (NEG) Urine Leukocyte Esterase TRACE (NEG) Urine WBC (Auto) 10-30 /hpf (0-5) Urine RBC (Auto) 0-4 /hpf (0-4) Urine Hyaline Casts (Auto) 1-5 /lpf (0-5) Urine Epithelial Cells (Auto) >30 /lpf (0-5) Urine Bacteria (Auto) NEG (NEG) Urine Renal Epithelial Cells 5-10 /lpf (0-5) Phosphorus Level 4.5 mg/dl (2.5-4.9) Thyroid Stimulating Hormone (TSH) 0.825 uIu/ml (0.300-4.500) Parathyroid Hormone (Intact) < 5.5 pg/mL (11.1-79.5) Labs reviewed by ED physician. Medications Administered Medications (Trade) Dose Ordered Sig/Geraldine Route Start Time Stop Time Status Last Admin Dose Admin Sodium Chloride (Nss 1000ml) 1,000 ml @ 999 mls/hr Q1H1M STAT IV 08/28/16 18:57 08/28/16 19:57 DC 08/28/16 19:26 999 MLS/HR Hydromorphone HCl (Dilaudid Inj) 0.5 mg NOW STAT IV 08/28/16 19:38 08/28/16 19:41 DC 08/28/16 19:51 0.5 MG Ondansetron HCl (Zofran Inj) 4 mg NOW STAT IV 08/28/16 19:38 08/28/16 19:41 DC 08/28/16 19:51 4 MG Acetaminophen 1000 mg 1,000 mg NOW STAT PO 08/28/16 19:38 08/28/16 19:41 DC 08/28/16 19:51 1,000 MG Sodium Chloride (Nss 1000ml) 1,000 ml @ 999 mls/hr Q1H1M STAT IV 08/28/16 20:47 08/28/16 21:47 DC 08/28/16 20:49 999 MLS/HR Potassium Chloride 40 meq 40 meq NOW STAT PO 08/28/16 20:53 08/28/16 20:56 DC 08/28/16 20:58 40 MEQ Sodium Chloride (Nss 1000ml) 1,000 ml @ 999 mls/hr Q1H1M ONCE IV 08/28/16 21:45 08/28/16 22:45 DC 08/28/16 22:30 999 MLS/HR Potassium Chloride (Klor-Con M10) 40 meq NOW STAT PO 08/28/16 22:35 08/28/16 23:45 DC 08/29/16 00:38 40 MEQ ED Course 1851: Past medical records reviewed. The patient was evaluated in room A12a. A complete history and physical examination was performed. 1856: NSS 1000 ml @ 999 mls/hr. 1937: Tylenol 1000 mg PO, Zofran 4 mg IV, Dilaudid 0.5 mg IV. 2046: NSS 1000 ml @ 999 mls/hr. 2048: Discussed the case with Madeline Valiente. The patient will be evaluated. Medical Decision Differential diagnosis: Etiologies such as appendicitis, diverticulitis, PUD, biliary pathology, UTI, pancreatitis, obstruction, mesenteric ischemia, aortic pathology, infections, inflammatory bowel disease, renal colic, as well as others were entertained. This is a 31-year-old female who recently gave via vaginal delivery. The patient reports that she has not been feeling well is complaining of a headache. She has no evidence of meningitis encephalitis on examination. The patient's creatinine is elevated. For this reason she was sent into the emergency department. She received normal saline bolus in the emergency department 2. I did discuss the case with the hospitalist who agreed to admit the patient. Patient was in agreement with the treatment plan. Consults Time Called: 2041 Consulting Physician: Madeline aVliente. Returned Call: [phone]: Discussed the case with Madeline Valiente. The patient will be evaluated. Impression Primary Impression: ARF (acute renal failure) Scribe Attestation The scribe's documentation has been prepared under my direction and personally reviewed by me in its entirety. I confirm that the note above accurately reflects all work, treatment, procedures, and medical decision making performed by me. Departure Information Dispostion Being Evaluated By Hospitalist Referrals Fernando Arreguin, D.OTisha (PCP) Patient Instructions My [facility] Problem Qualifiers Primary Impression: ARF (acute renal failure) Acute renal failure type: unspecified Qualified Codes: N17.9 - Acute kidney failure, unspecified
[2016-08-28] MEDS ORDERED: HYDROmorphone INJ 0.5 MG/0.5 ML SYR IV STA (19:38)
[2016-08-28] MEDS ORDERED: ACETAMINOPHEN 500 MG TAB PO STA (19:38)
[2016-08-28] MEDS ORDERED: ONDANSETRON INJ 2 MG/ML 2 ML VIAL IV STA (19:38)
[2016-08-28 19:40] LABS: BASO % 0.1 %; BASO ABS # 0.01 K/uL (0-0.2); COMPLETE YES; EOS % 0.1 %; HEMATOCRIT 34.8 % (37-47); IG% 0.3 %; LYMPH % 20.3 %; LYMPH ABS # 1.44 K/uL (1.2-3.4); MEAN CELL VOLUME 79.1 fL (80-100); MEAN CORPUSCULAR HGB CONC 31.6 g/dl (32-36); MEAN PLATELET VOLUME 9.8 fL (7.4-10.4); MONO % 8.3 %; NEUT % 70.9 %; PLATELET COUNT 509 K/uL (130-400); WHITE BLOOD COUNT 7.09 K/uL (4.8-10.8)
[2016-08-28 20:04] LABS: ALT/SGPT 30 U/L (12-78); AST/SGOT 17 U/L (15-37); BLOOD UREA NITROGEN 30 mg/dl (7-18); BUN/CREATININE RATIO 12.1 (10-20); CHLORIDE 82 mmol/L (98-107); GLUCOSE 87 mg/dl (70-99); POTASSIUM 3.1 mmol/L (3.5-5.1); SODIUM 136 mmol/L (136-145)
[2016-08-28 20:06] LABS: ALKALINE PHOSPHATASE 126 U/L (45-117)
--- NOTE | 2016-08-28 20:33 | DIAGNOSTIC IMAGING REPORT ---
EXAMINATION: RENAL ULTRASOUND CLINICAL HISTORY: Acute renal failure COMPARISON STUDY: 12/23/2013 FINDINGS: The right kidney measures 12.0 cm. The left kidney measures 13.4 cm.. There is no evidence of hydronephrosis. There are no renal masses. There is mild increase in renal cortical echogenicity, consistent with medical renal disease. No bladder abnormalities are visualized. Bilateral ureteral jets were visualized. There is fluid and debris within a thickened endometrium. IMPRESSION : 1. Increased renal cortical echogenicity, consistent with medical renal disease 2. No evidence of hydronephrosis 3. Incidentally noted fluid and debris within the endometrial cavity Electronically signed by: Otilio Bruno M.D. 08/28/2016 8:31 PM Dictated Date/Time: 08/28/2016 8:29 PM
[2016-08-28 20:37] LABS: LYME DISEASE AB IGG NEG (NEG); LYME DISEASE AB IGM NEG (NEG)
[2016-08-28 20:42] LABS: CALCIUM 16.2 mg/dl (8.5-10.1); CARBON DIOXIDE 53 mmol/L (21-32)
[2016-08-28] MEDS ORDERED: POTA-65 PO (20:44)
[2016-08-28] MEDS ORDERED: POTASSIUM CHLORIDE 10 MEQ TABCR PO STA ×2 (20:53→22:35)
[2016-08-28 21:20] LABS: MANUAL MICROSCOPIC REQUIRED? NO; REVIEW REQ? YES; URINE APPEARANCE CLOUDY (CLEAR); URINE BILIRUBIN NEG (NEG); URINE COLOR YELLOW; URINE EPITHELIAL CELL AUTO >30 /lpf (0-5); URINE NITRITE NEG (NEG); URINE PH >= 9.0 (4.5-7.5); URINE SPECIFIC GRAVITY 1.013 (1.000-1.030); UROBILINOGEN NEG (NEG)
[2016-08-28 21:22] LABS: SULFASALICYLIC ACID POS (NEG)
[2016-08-28] MEDS ORDERED: SODIUM CHLORIDE 0.9% 1000ML 1,000 ML IV ONE (21:45)
[2016-08-28 22:15] LABS: BUN/CREATININE RATIO 12.4 (10-20); CALCIUM 13.7 mg/dl (8.5-10.1); CREATININE 2.3 mg/dl (0.60-1.20); MAGNESIUM 1.7 mg/dl (1.8-2.4); PHOSPHORUS 4.5 mg/dl (2.5-4.9); POTASSIUM 3.1 mmol/L (3.5-5.1); THYROID STIMULATING HORMONE 0.825 uIu/ml (0.300-4.500)
[2016-08-28] MEDS ORDERED: ACETAMINOPHEN 325 MG TAB PO PRN (23:15)
[2016-08-28] MEDS ORDERED: HYDROmorphone INJ 0.5 MG/0.5 ML SYR IV PRN (23:15)
[2016-08-28] MEDS ORDERED: ONDANSETRON INJ 2 MG/ML 2 ML VIAL IV PRN (23:15)
[2016-08-28] MEDS ORDERED: TRAMADOL HCL 50 MG TAB PO PRN (23:15)
[2016-08-28] MEDS ORDERED: LORAZEPAM 2 MG/ML 1 ML VIAL IV PRN (23:15)
[2016-08-28 23:27] LABS: PARTIAL THROMBOPLASTIN RATIO 0.8; PROTHROMBIN TIME (PATIENT) 10.2 SECONDS (9.0-12.0)
[2016-08-28] MEDS ORDERED: FAMOTIDINE 20 MG TAB PO STA (23:45)
[2016-08-28 23:50] VITALS: BP 93/56; PULSE 86; TEMP 36.6; O2SAT 99
[2016-08-29] VITALS (8 sets, daily range): BP systolic 93–122; BP diastolic 56–82; PULSE 79–95; TEMP 36.6–37.2; O2SAT 94–100; Ht 162.6 cm; Wt 55.0 kg
[2016-08-29] MEDS ORDERED: MAGNESIUM SULFATE 1GM / D5W 1 GM in PREMIXED IN D5W 100 ML IV STA (00:21)
[2016-08-29] MEDS ORDERED: LORAZEPAM INJ 0.5 MG in SYRINGE 0.75 ML IV PRN (01:45)
[2016-08-29] MEDS: NSS + 20MEQ KCL 1000ML 1,000 ML IV SCH ×3 (01:56→11:58)
[2016-08-29] MEDS: CEFTRIAXONE SOD INJ 1 GM in DEXTROSE 5% ADD-VANTAGE 50ML 50 ML IV SCH (02:07)
[2016-08-29 02:57] LABS: BASO % 0.1 %; BASO ABS # 0.01 K/uL (0-0.2); COMPLETE YES; HEMATOCRIT 32.9 % (37-47); IG% 0.1 %; LYMPH % 24.7 %; LYMPH ABS # 1.79 K/uL (1.2-3.4); MEAN CELL VOLUME 79.9 fL (80-100); MEAN CORPUSCULAR HEMOGLOBIN 24.5 pg (25-34); MEAN CORPUSCULAR HGB CONC 30.7 g/dl (32-36); MEAN PLATELET VOLUME 9.8 fL (7.4-10.4); MONO % 8.1 %; PLATELET COUNT 385 K/uL (130-400); RED BLOOD COUNT 4.12 M/uL (4.2-5.4); WHITE BLOOD COUNT 7.24 K/uL (4.8-10.8)
[2016-08-29 03:19] LABS: BLOOD UREA NITROGEN 29 mg/dl (7-18); BUN/CREATININE RATIO 13.1 (10-20); CALCIUM 13.1 mg/dl (8.5-10.1); CARBON DIOXIDE 37 mmol/L (21-32); CHLORIDE 93 mmol/L (98-107); GLUCOSE 77 mg/dl (70-99); MAGNESIUM 2.2 mg/dl (1.8-2.4); POTASSIUM 3.7 mmol/L (3.5-5.1); SODIUM 138 mmol/L (136-145)
--- NOTE | 2016-08-29 04:40 | HISTORY & PHYSICAL EXAMINATION ---
DATE OF ADMISSION: 08/28/2016 PRIMARY CARE DOCTOR: Dr. Arreguin. Hx obtained from px and records. CHIEF COMPLAINT: Dizziness, abnormal blood work. HISTORY OF PRESENT ILLNESS: Medical history significant for chronic anemia (baseline hemoglobin 9, GERD. Recent confinement last April 2016 for hypokalemia 2 to poor PO intake. Patient has had worsening reflux symptoms months prior to childbirth. Patient would take at least 4 tablets of OTC TUMS (calcium carbonate) daily. Sopped her home Famotidine. Two weeks ago the patient confined under OB service for labor. Patient had spontaneous vaginal delivery. After discharge, fair sleep and appetite. No chest pain, no shortness of breath. A good amount of vaginal bleeding which is usual for her w/ previous deliveries in the past. No fever, no chills. She was feeling weak, dizzy, and had bitemporal headache symptoms. No chest pain, no shortness of breath, complaining of dysuria, some flank pain. Seen at the PCP's office. Outpatient blood work showed a creatinine of 2.4, calcium was 16.3. Patient sent to the Emergency Room for evaluation. MEDICAL HISTORY: As above. SURGERIES: She has had vaginal deliveries in the past. HOME MEDICATIONS: Include Tums p.r.n., multivitamins, potassium chloride. ALLERGIES: No known drug allergies. FAMILY HISTORY: Bone cancer, brain cancer. PERSONAL AND SOCIAL HISTORY: Nonsmoker, no chronic intake of alcoholic beverages. Homemaker. REVIEW OF SYSTEMS: As per HPI, all other ROS negative. PHYSICAL EXAMINATION: VITAL SIGNS: Blood pressure was noted to be BP 136/92, CA 86, RR 18 T 37.3 O2 98RA. GENERAL: Noted to be slightly uncomfortable, no respiratory distress. SKIN: Pallor. HEENT: Pale palp conjunctivae, dry mucosa. NECK: No JVD. supple CHEST: Clear to auscultation. HEART: Regular rate and rhythm. ABDOMEN: Soft. BACK : minimal R flank tenderness. EXTREMITIES: No edema. no tenderness NEUROLOGIC: No gross focality. LABORATORY DATA: Hemoglobin was noted to be 11, platelets 509. Sodium 137, potassium 4.1, chloride 82, BUN 30, CO2 was 53, creatinine was 2.5, calcium was 16.2. Repeat calcium after 13.6 srum phos 4.5. UA : WBCs positive, hyaline cast. ASSESSMENT: 1. 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 Patient admits to taking calcium carbonate tabs (at least 4 tabs daily for a number of months now) for reflux symptoms during and after. good response to initial IV hydration administered at the ER 2. vaginal bleeding Hg actually better than baseline suspect hemoconcentration "heavy" bleeding usual for her from previous pregnancies as per px 3. symptomatic urinary tract infection no sepsis 4. flank pain, rule out kidney stone. PLAN: GMF Monitor serum calcium response to NSS. Nephrology consult RE hypercalcemia. Patient instructed not to take calcium carbonate tablets for now. Reinstitute patient's H2 hermann for GERD sx (dosed for renal function) ff urine CS, IV Ceftriaxone for now CT abdomen and pelvis RE flank pain Gynecology consult RE vaginal bleeding/eval ER physician already in touch with OB on-call for Dr. Betts. DVT prophylaxis, SCDs RE vaginal bleeding. Full code. MTDD
[2016-08-29] MEDS ORDERED: GI COCKTAIL PO ONE (05:00)
[2016-08-29] MEDS ORDERED: ALUMINUM/MAGNESIUM SUSP 18 ML, LIDOCAINE HCL 2% VISCOUS SOLN 6 ML, BARCODE IDENTIFIER 1 EA PO STA ×2 (05:02)
[2016-08-29] MEDS ORDERED: TRAMADOL HCL 50 MG TAB PO PRN (05:15)
--- NOTE | 2016-08-29 07:06 | DIAGNOSTIC IMAGING REPORT ---
CT OF THE ABDOMEN AND PELVIS WITHOUT CONTRAST CLINICAL HISTORY: Abdominal pain. Flank pain. Acute renal failure. Status post vaginal delivery August 17, 2016. COMPARISON STUDY: CT of the abdomen and pelvis May 11, 2014 and renal ultrasound August 28, 2016. TECHNIQUE: Axial images of the abdomen and pelvis were obtained without IV contrast. Images were reviewed in the axial, sagittal, and coronal planes. FINDINGS: Lung bases are clear. There is a 2 mm right renal calculus. No ureteral calculi are present and there is no hydronephrosis. A 2.2 cm hypodense right hepatic lobe lesion was shown on prior imaging studies. This likely reflects a hemangioma. Unenhanced images of the spleen, adrenal glands and pancreas are normal. There is no biliary or pancreatic ductal dilatation. There is no evidence for a bowel obstruction. Moderate uterine enlargement is noted. The appendix is normal. Skeletal structures are unremarkable. There is no lymphadenopathy. IMPRESSION: 1. 2 mm right renal calculus. No ureteral calculi or hydronephrosis. 2. Moderate uterine enlargement consistent with recent state. 3. Normal appendix. 4. No bowel obstruction. Electronically signed by: Matias Parsons M.D. 08/29/2016 7:05 AM Dictated Date/Time: 08/29/2016 6:58 AM
--- NOTE | 2016-08-29 07:47 | DIAGNOSTIC IMAGING REPORT ---
CHEST ONE VIEW PORTABLE CLINICAL HISTORY: Chest pain. COMPARISON STUDY: Chest radiograph May 13, 2015. FINDINGS: Lung volumes are normal. Lungs are clear. There is no pneumothorax or pleural effusion. Cardiac size is normal. Mediastinal contours are normal. IMPRESSION: No acute cardiopulmonary findings. Electronically signed by: Matias Parsons M.D. 08/29/2016 7:46 AM Dictated Date/Time: 08/29/2016 7:45 AM
[2016-08-29] MEDS: FAMOTIDINE 20 MG TAB PO SCH ×2 (08:02→20:41)
[2016-08-29 08:22] LABS: ALKALINE PHOSPHATASE 96 U/L (45-117); ALT/SGPT 20 U/L (12-78); AST/SGOT 16 U/L (15-37); URIC ACID 7.2 mg/dl (2.6-7.2)
--- NOTE | 2016-08-29 11:21 | Medical Consult ---
Consultation Note Consultation Note OBGYN Consultation Reason for consult: acute renal failure, 10 days' Physician ordering consult: Dr Tena CC: "not feeling well" HPI: Pt is 31yoF, PPD#12 s/p vaginal delivery. Her was complicated by gestational proteinuria without hypertension, pruritis gravidarum , and fetus small for gestational age. Her delivery was uneventful. Bile acid labs were ordered during the for her pruritis to diagnose cholestasis of , but resulted 2 days after delivery (elevated, 16.7). She began to feel unwell the day after she was discharged from Labor & Delivery. She felt weak/run-down. She went to her PCP, who discovered creatinine 2.5 on labs. She was sent to [facility] ER for admit. She denies fever/chills/vomiting. Has had some nausea, but good appetite. Normal bowels. Feels like she has been urinating frequently, but also complains of burning with urination. Moderate lochia, appropriate for post- state. going well. She notes the baby is doing well. PMH: denies PSH: D&E x 2 (missed ) ROS: negative except as above Allergies: NKDA Meds: keflex, potassamin Soc: denies alcohol/tobacco/drug use FamHx: h/o cholestasis of Vitals: Date Time Temp Pulse Resp B/P Pulse Ox O2 Delivery O2 Flow Rate FiO2 08/29/16 07:20 Room Air 08/29/16 07:20 36.8 79 16 109/76 94 Room Air 08/29/16 04:50 36.8 95 18 118/79 96 Room Air 08/29/16 03:00 36.6 93 18 113/78 100 Room Air 08/29/16 03:00 100 Room Air 08/29/16 00:00 95 Room Air 08/29/16 00:00 36.8 79 16 108/72 95 Room Air 08/29/16 00:00 36.8 79 16 108/72 95 Room Air 08/28/16 23:55 86 17 114/73 94 08/28/16 23:25 86 17 114/73 94 Room Air 08/28/16 23:15 97 08/28/16 21:40 102 16 133/82 08/28/16 20:42 68 18 124/83 94 Room Air 08/28/16 19:27 88 16 137/94 96 08/28/16 19:25 73 08/28/16 18:43 86 18 135/92 97 Room Air 08/28/16 17:24 37.3 114 17 123/86 96 Room Air General: AAOx3 NAD. Ambulating in room. Appears pale. CV: [id number] L: CTAB Abd: soft, fundus firm/below umbilicus. Mild tenderness at liver edge. Back: No CVAT Ext: no edema, no calf tenderness 08/29/16 02:45 Red Blood Count 4.12, Mean Corpuscular Volume 79.9, Mean Corpuscular Hemoglobin 24.5, Mean Corpuscular Hemoglobin Concent 30.7, Mean Platelet Volume 9.8, Neutrophils (%) (Auto) 67.0, Lymphocytes (%) (Auto) 24.7, Monocytes (%) (Auto) 8.1, Eosinophils (%) (Auto) 0.0, Basophils (%) (Auto) 0.1, Neutrophils # (Auto) 4.84, Lymphocytes # (Auto) 1.79, Monocytes # (Auto) 0.59, Eosinophils # (Auto) 0.00, Basophils # (Auto) 0.01 08/29/16 02:45 Test 08/28/16 19:19 08/28/16 20:39 08/28/16 21:28 08/29/16 02:45 Prothrombin Time 10.2 SECONDS (9.0-12.0) Prothromb Time International Ratio 1.0 (0.9-1.1) Lipase 193 U/L (73-393) Lyme Disease IgG Antibody NEG (NEG) Lyme Disease IgM Antibody NEG (NEG) Urine Color YELLOW Urine Appearance CLOUDY (CLEAR) Urine pH >= 9.0 (4.5-7.5) Urine Specific [place] 1.013 (1.000-1.030) Urine Protein 1+ (NEG) Urine Glucose (UA) NEG (NEG) Urine Ketones NEG (NEG) Urine Occult Blood NEG (NEG) Urine Nitrite NEG (NEG) Urine Bilirubin NEG (NEG) Urine Urobilinogen NEG (NEG) Urine Leukocyte Esterase TRACE (NEG) Urine WBC (Auto) 10-30 /hpf (0-5) Urine RBC (Auto) 0-4 /hpf (0-4) Urine Hyaline Casts (Auto) 1-5 /lpf (0-5) Urine Epithelial Cells (Auto) >30 /lpf (0-5) Urine Bacteria (Auto) NEG (NEG) Urine Renal Epithelial Cells 5-10 /lpf (0-5) Phosphorus Level 4.5 mg/dl (2.5-4.9) Thyroid Stimulating Hormone (TSH) 0.825 uIu/ml (0.300-4.500) Parathyroid Hormone (Intact) < 5.5 pg/mL (11.1-79.5) White Blood Count 7.24 K/uL (4.8-10.8) Red Blood Count 4.12 M/uL (4.2-5.4) Hemoglobin 10.1 g/dL (12.0-16.0) Hematocrit 32.9 % (37-47) Mean Corpuscular Volume 79.9 fL (80-100) Mean Corpuscular Hemoglobin 24.5 pg (25-34) Mean Corpuscular Hemoglobin Concent 30.7 g/dl (32-36) Platelet Count 385 K/uL (130-400) Mean Platelet Volume 9.8 fL (7.4-10.4) Neutrophils (%) (Auto) 67.0 % Lymphocytes (%) (Auto) 24.7 % Monocytes (%) (Auto) 8.1 % Eosinophils (%) (Auto) 0.0 % Basophils (%) (Auto) 0.1 % Neutrophils # (Auto) 4.84 K/uL (1.4-6.5) Lymphocytes # (Auto) 1.79 K/uL (1.2-3.4) Monocytes # (Auto) 0.59 K/uL (0.11-0.59) Eosinophils # (Auto) 0.00 K/uL (0-0.5) Basophils # (Auto) 0.01 K/uL (0-0.2) RDW Standard Deviation 47.4 fL (36.4-46.3) RDW Coefficient of Variation 16.5 % (11.5-14.5) Immature Granulocyte % (Auto) 0.1 % Immature Granulocyte # (Auto) 0.01 K/uL (0.00-0.02) Anion Gap 8.0 mmol/L (3-11) Est Creatinine Clear Calc Drug Dose 31.2 ml/min Estimated GFR () 33.7 Estimated GFR (Non- 29.1 BUN/Creatinine Ratio 13.1 (10-20) Calcium Level 13.1 mg/dl (8.5-10.1) Magnesium Level 2.2 mg/dl (1.8-2.4) Troponin I < 0.015 ng/ml (0-0.045) 25-Hydroxy Vitamin D Total 35.1 ng/ml (30-100) Test 08/29/16 07:15 08/29/16 09:55 Activated Partial Thromboplast Time 24.7 SECONDS (21.0-31.0) Partial Thromboplastin Ratio 1.0 Uric Acid 7.2 mg/dl (2.6-7.2) Total Bilirubin 0.2 mg/dl (0.2-1) Direct Bilirubin < 0.1 mg/dl (0-0.2) Aspartate Amino Transf (AST/SGOT) 16 U/L (15-37) Alanine Aminotransferase (ALT/SGPT) 20 U/L (12-78) Alkaline Phosphatase 96 U/L (45-117) Total Protein 5.9 gm/dl (6.4-8.2) Albumin 2.3 gm/dl (3.4-5.0) A/P 1. 31 yo PPD#12 s/p vaginal delivery with h/o cholestasis of and gestational proteinuria without hypertension 2. Acute renal failure From the obstetrical perspective, preeclampsia is not likely, as the patient has not had elevated blood pressures during or in the period. HELLP syndrome is also not likely given that her platelets, coags, and liver function testing is normal. Hemolytic-uremic syndrome can manifest in the antepartum or period with elevated creatinine. HUS is unlikely given normal CBC and coags, but I ordered peripheral blood smear to rule out hemolysis. If peripheral blood smear is negative, this makes TTP/HUS unlikely as well. Cholestasis of is likely unrelated - as it is typically self-limiting , and resolves upon delivery of the baby within 48 hours. Patient's liver enzymes are normal. Patient's acute kidney failure does not fit with any of the above obstetrical diagnoses, therefore I do not think it is related to her recent / delivery. Recommend consultation with nephrology for further workup, evaluation and recommendations. I ordered a breast pump for the patient, as she is currently . The current medications prescribed are all considered safe while . Thank you for the consult - please contact with questions.
[2016-08-29 13:43] LABS: BUN/CREATININE RATIO 12.7 (10-20); CALCIUM 10.3 mg/dl (8.5-10.1); CREATININE 1.8 mg/dl (0.60-1.20); POTASSIUM 4.7 mmol/L (3.5-5.1)
--- NOTE | 2016-08-29 13:57 | NEPHROLOGY CONSULTATION ---
DATE OF CONSULTATION: 08/29/2016 ATTENDING OF RECORD: Dr. Tena. REASON FOR CONSULTATION: NANDO and hypercalcemia. HISTORY OF PRESENT ILLNESS: This is 31-year-old old female who recently delivered vaginally a baby girl. The patient has several kids at home. The patient was coming in with dizziness and found to have a calcium level of 16 and a creatinine up to 2.5. The patient's bicarbonate was also notably elevated in the 50s. The patient states she has been eating and drinking okay. When the patient left the hospital after delivery of child, the patient's creatinine was 0.8. Comes in with a creatinine of 2.5, bicarbonate was 24 at time of discharge after delivery and comes in with a bicarbonate of 53. Calcium level was normal at 8.9, and comes in with calcium level of 16.2. The patient has been taking several calcium supplements for acid reflux but states sheis eating and drinking well and denies any nausea, vomiting or diarrhea. The patient was given aggressive IV fluid resuscitation. Calcium level has improved from 16.2 down to 13.1. Her CO2 has gone from 53 down to 37. Her creatinine has improved from 2.5 down to 2.2. She was also noted to have a low potassium of 3.1 and required aggressive potassium supplementation and now Potassium is 3.7. Her PTH was appropriately low. A UA showed no blood, but did show protein. Renal ultrasound showed a kidney stone, as well as some mild increase in cortical echogenicity suggestive of mild medical renal disease. The patient denies any hypertension. She has been and has a normal milk production. denies any nsaids. PAST MEDICAL HISTORY: The patient does have a past medical history of chronic anemia of unclear etiology, acid reflux and chronic hypokalemia. PAST SURGICAL HISTORY: Denies any surgical history. HOME MEDICATIONS: Potassium which she takes chronically, Tums as needed, vitamin. CURRENT MEDICATIONS: Reviewed FAMILY HISTORY: Significant for bone cancer and brain cancer. SOCIAL HISTORY: No smoking, no alcohol, no drugs. Lives at home with her children. REVIEW OF SYSTEMS: Positive weakness. Positive dizziness. Positive headaches. Denies any shortness of breath. Denies any chest pain. Mild nausea. No vomiting. No diarrhea. Appetite is still good. All other review of systems otherwise negative. PHYSICAL EXAMINATION: VITAL SIGNS: Temperature 37.1, pulse 82, respiratory rate 16, blood pressure 105/73, pulse ox 96% on room air. GENERAL: Awake, alert, oriented x3. HEENT: Eyes, no scleral icterus. Mucous membranes appear dry. NECK: Supple. PULMONARY: Clear to auscultation. CARDIAC: Regular rate and rhythm. ABDOMEN: Bowel sounds positive, soft, nontender. EXTREMITIES: No significant clubbing, cyanosis or edema. NEUROLOGICALLY: Nonfocal. DERMATOLOGIC: No rash or ulcers noted. LABORATORY: White count 7.2, H\T\H 10.1 and 32.9, platelet count is 385. Repeat labs are pending. Last labs we have, a sodium level 138, potassium level of 3.7, chloride of 93, bicarbonate 37, BUN is 29, creatinine is 2.2, glucose 77, calcium 13.1, down from 16.2. Magnesium level is up to 2.2 from 1.7. Troponin negative. PTH low at less than 5.5. TSH 0.825. Vitamin D of 35. Albumin was 3.6; however, with fluids has gone down to 2.3. Uric acid level was elevated at 7.2. Lyme is negative. UA showed a pH of greater than 9, specific gravity of 1.013, 1+ protein, trace leukocyte esterase, 10-30 WBCs. INR is 1. Urine culture is pending. Renal ultrasound showed a right kidney of 12 cm, left kidney of 13.4 cm. No evidence of hydro. No renal mass. Mild increase in renal cortical echogenicity consistent with medical renal disease. Chest x-ray showed no acute cardiopulmonary findings. Abdominal and pelvis CT showed a 2 mm right renal calculus and moderate uterine enlargement consistent with recent state. Normal appendix. IMPRESSION AND PLAN: 1. Acute kidney injury, nonoliguric in the setting of high calcium, elevated bicarbonate and low potassium. Appears to be acute kidney injury from volume depletion with hypercalcemia significant enough to cause acute tubular necrosis. Creatinine is improving and hopefully will eventually get back down to baseline. Will continue aggressive IV fluids, appears to be tolerating the fluids well. With the low potassium and elevated bicarbonate, question surreptitious use of diuretics. The patient does take potassium chronically as an outpatient. For now, would encourage fluids. Of note, her albumin level is low with appropriate hydration and she does have an underlying anemia as well. Screening for myeloma to be thorough. Question if patient has the beginnings of Bartter's or Gitelman's syndrome where patients lose potassium and magnesium. Will need to do repeat lab work as an outpatient to follow the levels. 2. Hypercalcemia. PTH is appropriately low and so unlikely to have primary hyperparathyroidism. A PTHrP and KASSIE level and SPEP are all still pending. 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 Calcium levels are improving with fluids. Hopefully, this is just from taking too much Tums in the setting of volume depleted state. Hypercalcemia in and of itself is severe enough to cause volume depletion as well. So overall, this could be significant hypercalcemia causing significant volume depletion whether the patient was eating and drinking her normal amount or not. Will need to do lab work as an outpatient once calcium levels have normalized to make sure her labs remain stable. Her labs upon discharge after delivery were all relatively normal with a creatinine of 0.8, calcium level of 8.9, creatinine of 0.81, bicarbonate of 24. So overall, we have acute kidney injury, significant contraction alkalosis, hypercalcemia, hypokalemia, hypomagnesemia, nutritional deficiency with low albumins, and chronic anemia as an outpatient of unclear etiology, which will need more thorough workup as an outpatient. For now, continue aggressive fluid resuscitation and monitor for signs of volume overload and follow labs repleting electrolytes accordingly. Appreciate consultation. PAO
[2016-08-29] MEDS: SODIUM CHLORIDE 0.9% 1000ML 1,000 ML IV SCH ×2 (15:10→23:59)
--- NOTE | 2016-08-29 16:04 | Progress Note ---
Medicine Progress Note Date & Time of Visit: Aug 29, 2016 at 15:50. Subjective Patient notes a headache this morning, that she has had since delivery. She also notes right sided mid back pain that she has had since delivery. +Nausea, no vomiting or diarrhea. Has been taking 4 TUMS per day for the past 2 months for heartburn. Objective Last 8 Hrs Date Time Temp Pulse Resp B/P Pulse Ox O2 Delivery O2 Flow Rate FiO2 08/29/16 11:30 37.1 82 16 105/73 96 Room Air Physical Exam: General-sleeping but arousable Eyes-EOMI; no scleral icterus ENT-poor dentition Neck-no stridor; trachea midline Lungs-CTA bilaterally; no wheezes/crackles Heart-RRR; no m/r/g Abdomen-soft; NTND; nBS Extremities-no c/c/e; no deformity Back-no CVA tenderness Neuro-no gross focal deficits Laboratory Results: Last 24 Hours Test 08/28/16 19:19 08/28/16 20:39 08/28/16 21:28 08/29/16 02:45 White Blood Count 7.09 K/uL 7.24 K/uL Red Blood Count 4.40 M/uL 4.12 M/uL Hemoglobin 11.0 g/dL 10.1 g/dL Hematocrit 34.8 % 32.9 % Mean Corpuscular Volume 79.1 fL 79.9 fL Mean Corpuscular Hemoglobin 25.0 pg 24.5 pg Mean Corpuscular Hemoglobin Concent 31.6 g/dl 30.7 g/dl Platelet Count 509 K/uL 385 K/uL Mean Platelet Volume 9.8 fL 9.8 fL Neutrophils (%) (Auto) 70.9 % 67.0 % Lymphocytes (%) (Auto) 20.3 % 24.7 % Monocytes (%) (Auto) 8.3 % 8.1 % Eosinophils (%) (Auto) 0.1 % 0.0 % Basophils (%) (Auto) 0.1 % 0.1 % Neutrophils # (Auto) 5.02 K/uL 4.84 K/uL Lymphocytes # (Auto) 1.44 K/uL 1.79 K/uL Monocytes # (Auto) 0.59 K/uL 0.59 K/uL Eosinophils # (Auto) 0.01 K/uL 0.00 K/uL Basophils # (Auto) 0.01 K/uL 0.01 K/uL RDW Standard Deviation 46.7 fL 47.4 fL RDW Coefficient of Variation 16.2 % 16.5 % Immature Granulocyte % (Auto) 0.3 % 0.1 % Immature Granulocyte # (Auto) 0.02 K/uL 0.01 K/uL Prothrombin Time 10.2 SECONDS Prothromb Time International Ratio 1.0 Activated Partial Thromboplast Time 21.9 SECONDS Partial Thromboplastin Ratio 0.8 Sodium Level 136 mmol/L 139 mmol/L 138 mmol/L Potassium Level 3.1 mmol/L 3.1 mmol/L 3.7 mmol/L Chloride Level 82 mmol/L 89 mmol/L 93 mmol/L Carbon Dioxide Level 53 mmol/L 45 mmol/L 37 mmol/L Anion Gap 1.0 mmol/L 6.0 mmol/L 8.0 mmol/L Blood Urea Nitrogen 30 mg/dl 29 mg/dl 29 mg/dl Creatinine 2.50 mg/dl 2.30 mg/dl 2.20 mg/dl Est Creatinine Clear Calc Drug Dose 27.4 ml/min 29.8 ml/min 31.2 ml/min Estimated GFR () 28.9 32.0 33.7 Estimated GFR (Non- 24.9 27.6 29.1 BUN/Creatinine Ratio 12.1 12.4 13.1 Random Glucose 87 mg/dl 84 mg/dl 77 mg/dl Calcium Level 16.2 mg/dl 13.7 mg/dl 13.1 mg/dl Total Bilirubin 0.4 mg/dl Direct Bilirubin < 0.1 mg/dl Aspartate Amino Transf (AST/SGOT) 17 U/L Alanine Aminotransferase (ALT/SGPT) 30 U/L Alkaline Phosphatase 126 U/L Total Protein 8.5 gm/dl Albumin 3.6 gm/dl Lipase 193 U/L Lyme Disease IgG Antibody NEG Lyme Disease IgM Antibody NEG Urine Color YELLOW Urine Appearance CLOUDY Urine pH >= 9.0 Urine Specific [place] 1.013 Urine Protein 1+ Urine Glucose (UA) NEG Urine Ketones NEG Urine Occult Blood NEG Urine Nitrite NEG Urine Bilirubin NEG Urine Urobilinogen NEG Urine Leukocyte Esterase TRACE Urine WBC (Auto) 10-30 /hpf Urine RBC (Auto) 0-4 /hpf Urine Hyaline Casts (Auto) 1-5 /lpf Urine Epithelial Cells (Auto) >30 /lpf Urine Bacteria (Auto) NEG Urine Renal Epithelial Cells 5-10 /lpf Phosphorus Level 4.5 mg/dl Magnesium Level 1.7 mg/dl 2.2 mg/dl Thyroid Stimulating Hormone (TSH) 0.825 uIu/ml Parathyroid Hormone (Intact) < 5.5 pg/mL Troponin I < 0.015 ng/ml 25-Hydroxy Vitamin D Total 35.1 ng/ml Test 08/29/16 07:15 08/29/16 12:00 Activated Partial Thromboplast Time 24.7 SECONDS Partial Thromboplastin Ratio 1.0 Uric Acid 7.2 mg/dl Total Bilirubin 0.2 mg/dl Direct Bilirubin < 0.1 mg/dl Aspartate Amino Transf (AST/SGOT) 16 U/L Alanine Aminotransferase (ALT/SGPT) 20 U/L Alkaline Phosphatase 96 U/L Total Protein 5.9 gm/dl Albumin 2.3 gm/dl Sodium Level 140 mmol/L Potassium Level 4.7 mmol/L Chloride Level 102 mmol/L Carbon Dioxide Level 32 mmol/L Anion Gap 6.0 mmol/L Blood Urea Nitrogen 23 mg/dl Creatinine 1.80 mg/dl Est Creatinine Clear Calc Drug Dose 38.2 ml/min Estimated GFR () 43.0 Estimated GFR (Non- 37.1 BUN/Creatinine Ratio 12.7 Random Glucose 75 mg/dl Calcium Level 10.3 mg/dl Date/Time Source Procedure Growth Status 08/28/16 21:11 Urine , Clean Catch Urine Culture Pending Received Assessment & Plan Acute renal insufficiency - possibly related to volume depletion and hypercalcemia - Nephrology consulted - continue IVF's - creatinine downtrending - OB consulted and no appreciable obstetrical cause of renal insufficiency - renal ultrasound unremarkable - CT a/p with 2mm right renal calculi Hypercalcemia - PTH appropriately low - PTHrP, KASSIE level, anti-ds DNA, complements, and SPEP pending - 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 Increased renal cortical echogenicity, consistent with medical renal disease 2. No evidence of hydronephrosis 3. Incidentally noted fluid and debris within the endometrial cavity CT a/p 1. 2 mm right renal calculus. No ureteral calculi or hydronephrosis. 2. Moderate uterine enlargement consistent with recent state. 3. Normal appendix. 4. No bowel obstruction. Current Inpatient Medications: Current Inpatient Medications Medications (Trade) Dose Ordered Sig/Geraldine Route Start Time Stop Time Status Last Admin Dose Admin Ceftriaxone Sodium/Dextrose (Rocephin Inj/ Dextrose Add-[place] 50ML) 50 ml @ 100 mls/hr Q24H IV 08/29/16 01:00 09/08/16 00:59 08/29/16 02:07 100 MLS/HR Famotidine (Pepcid Tab) 10 mg BID PO 08/29/16 09:00 09/28/16 08:59 08/29/16 08:02 10 MG Acetaminophen (Tylenol Tab) 650 mg Q4H PRN PO 08/28/16 23:15 09/27/16 23:14 Ondansetron HCl (Zofran Inj) 4 mg Q6H PRN IV 08/28/16 23:15 09/27/16 23:14 Tramadol HCl not relieved by tylenol @ Q6H PRN PO 08/29/16 05:15 09/28/16 05:14 08/29/16 15:40 50 MG Sodium Chloride (Nss 1000ml) 1,000 ml @ 125 mls/hr Q8H IV 08/29/16 15:00 09/28/16 14:59 08/29/16 15:10 125 MLS/HR
--- NOTE | 2016-08-29 22:58 | DIAGNOSTIC IMAGING REPORT ---
MRV brain MRV HEAD WITHOUT CONTRAST CLINICAL HISTORY: r/o thrombus; headache; headache TECHNIQUE: Transaxial acquisition with multi axial reformatted images COMPARISON STUDY: None FINDINGS: Limited study due to severe patient motion. All major intracranial venous structures are patent. A major thrombus component is not felt to be present. Transverse sinuses are intact. IMPRESSION: Limited, but essentially negative, MRV of the brain . Specifically, no significant evidence for intracranial venous thrombosis Electronically signed by: Douglas Rice M.D. 08/29/2016 10:57 PM Dictated Date/Time: 08/29/2016 10:56 PM
[2016-08-30] MEDS: CEFTRIAXONE SOD INJ 1 GM in DEXTROSE 5% ADD-VANTAGE 50ML 50 ML IV SCH (01:28)
[2016-08-30 07:37] LABS: HEMATOCRIT 24.6 % (37-47); MEAN CELL VOLUME 78.3 fL (80-100); MEAN CORPUSCULAR HEMOGLOBIN 24.2 pg (25-34); MEAN CORPUSCULAR HGB CONC 30.9 g/dl (32-36); MEAN PLATELET VOLUME 9.5 fL (7.4-10.4); PLATELET COUNT 345 K/uL (130-400); RED BLOOD COUNT 3.14 M/uL (4.2-5.4); WHITE BLOOD COUNT 5.64 K/uL (4.8-10.8)
[2016-08-30 07:55] LABS: BUN/CREATININE RATIO 14.6 (10-20); CALCIUM 8.9 mg/dl (8.5-10.1); CREATININE 1.4 mg/dl (0.60-1.20); MAGNESIUM 1.7 mg/dl (1.8-2.4); POTASSIUM 3.9 mmol/L (3.5-5.1)
[2016-08-30 08:00] VITALS: BP 109/67; PULSE 90; TEMP 36.8; O2SAT 97
[2016-08-30] MEDS: FAMOTIDINE 20 MG TAB PO SCH (08:03)
[2016-08-30] MEDS: SODIUM CHLORIDE 0.9% 1000ML 1,000 ML IV SCH (08:04)
--- NOTE | 2016-08-30 08:33 | OB/GYN Progress Note ---
[employer]NAGER [employer] Progress Note Date of Service Aug 30, 2016. Subjective conversation w/ patient, physical exam Voiding: no voiding problems Passing Gas: Yes Diet Tolerance: Regular Diet Lochia: Small Feeding Type: Breast Feeding Notes: feeling better today. lochia is small. pumping breast milk & saving it. states she is still very itchy all over. no rash or welts noted by patient. . this started about 10 weeks ago while she was . initial bile acids results were normal but the most recent results from 08/17/16 were elevated. she had delivered on 08/17/16. strong family history of cholestasis Review of Systems Constitutional: No chills, No fatigue, No fever, No problem reported, No sweats , No weakness, No weight loss Breast: No breast lump, No breast pain, No change in shape, No nipple discharge , No problem reported, No see HPI Abdomen: No GI bleeding, No constipation, No diarrhea, No nausea, No pain, No problem reported, No vomiting Objective Vital Signs Date Time Temp Pulse Resp B/P Pulse Ox O2 Delivery O2 Flow Rate FiO2 08/29/16 23:50 36.6 18 93/56 99 Room Air 08/29/16 23:50 Room Air 08/29/16 19:15 37.2 88 16 104/65 94 Room Air 08/29/16 15:30 37.1 88 16 122/82 96 Room Air 08/29/16 15:30 Room Air 08/29/16 11:30 37.1 82 16 105/73 96 Room Air Physical Exam General Appearance: WELL-APPEARING, NO APPARENT DISTRESS Abdomen: non tender, soft Fundus: Firm (just above pubic symphysis.) Extremities: no pedal edema, no calf tenderness Laboratory Results Last 24 Hours Test 08/29/16 12:00 08/30/16 07:09 Sodium Level 140 mmol/L 142 mmol/L Potassium Level 4.7 mmol/L 3.9 mmol/L Chloride Level 102 mmol/L 108 mmol/L Carbon Dioxide Level 32 mmol/L 26 mmol/L Anion Gap 6.0 mmol/L 8.0 mmol/L Blood Urea Nitrogen 23 mg/dl 20 mg/dl Creatinine 1.80 mg/dl 1.40 mg/dl Est Creatinine Clear Calc Drug Dose 38.2 ml/min 49.2 ml/min Estimated GFR () 43.0 58.3 Estimated GFR (Non- 37.1 50.3 BUN/Creatinine Ratio 12.7 14.6 Random Glucose 75 mg/dl 84 mg/dl Calcium Level 10.3 mg/dl 8.9 mg/dl White Blood Count 5.64 K/uL Red Blood Count 3.14 M/uL Hemoglobin 7.6 g/dL Hematocrit 24.6 % Mean Corpuscular Volume 78.3 fL Mean Corpuscular Hemoglobin 24.2 pg Mean Corpuscular Hemoglobin Concent 30.9 g/dl RDW Standard Deviation 48.9 fL RDW Coefficient of Variation 17.1 % Platelet Count 345 K/uL Mean Platelet Volume 9.5 fL Magnesium Level 1.7 mg/dl Assessment and Plan Continue Routine Care: progress is normal. await results of labs from today & hospitalist's recommendations.
--- NOTE | 2016-08-30 10:09 | Nephrology Progress Note ---
Nephrology Progress Note Date of Service: Aug 30, 2016. Subjective 31 yo female who developed severe acid reflux after delivery and was taking large amounts of tums and presented with significant contraction alkalosis and hypercalcemia and nando. given iv fluids and pt feels much better and eating well now. pt wants to go home to be with her family. pt says she has had significant menses since age 12 where she develops significant anemia and on iron supplement/ vitamin. her mother and sister also with signfiicant menses and iron issues. pt also has been questioned by other doctors in the past about any possible eating disorders which she continues to adamantly deny. pt has been on potassium supplement for at least the last two years of unclear etiology. Objective Date Time Temp Pulse Resp B/P Pulse Ox O2 Delivery O2 Flow Rate FiO2 08/30/16 08:00 36.8 90 18 109/67 97 Room Air 08/29/16 23:50 36.6 18 93/56 99 Room Air 08/29/16 23:50 Room Air 08/29/16 19:15 37.2 88 16 104/65 94 Room Air 08/29/16 15:30 37.1 88 16 122/82 96 Room Air 08/29/16 15:30 Room Air 08/29/16 11:30 37.1 82 16 105/73 96 Room Air Physical Exam: General-aaox3 Eyes-no scleral icterus ENT-mmm Neck-supple Lungs-cta Heart-rrr Abdomen-bs+/s/nt Extremities-no c/c/e Neuro-nonfocal Current Inpatient Medications Medications (Trade) Dose Ordered Sig/Geraldine Route Start Time Stop Time Status Last Admin Dose Admin Ceftriaxone Sodium/Dextrose (Rocephin Inj/ Dextrose Add-[place] 50ML) 50 ml @ 100 mls/hr Q24H IV 08/29/16 01:00 09/08/16 00:59 08/30/16 01:28 100 MLS/HR Famotidine (Pepcid Tab) 10 mg BID PO 08/29/16 09:00 09/28/16 08:59 08/30/16 08:03 10 MG Acetaminophen (Tylenol Tab) 650 mg Q4H PRN PO 08/28/16 23:15 09/27/16 23:14 08/29/16 16:52 650 MG Ondansetron HCl (Zofran Inj) 4 mg Q6H PRN IV 08/28/16 23:15 09/27/16 23:14 Tramadol HCl not relieved by tylenol @ Q6H PRN PO 08/29/16 05:15 09/28/16 05:14 08/29/16 15:40 50 MG Sodium Chloride (Nss 1000ml) 1,000 ml @ 125 mls/hr Q8H IV 08/29/16 15:00 09/28/16 14:59 08/30/16 08:04 125 MLS/HR Last 24 Hours Test 08/29/16 12:00 08/30/16 07:09 Sodium Level 140 mmol/L 142 mmol/L Potassium Level 4.7 mmol/L 3.9 mmol/L Chloride Level 102 mmol/L 108 mmol/L Carbon Dioxide Level 32 mmol/L 26 mmol/L Anion Gap 6.0 mmol/L 8.0 mmol/L Blood Urea Nitrogen 23 mg/dl 20 mg/dl Creatinine 1.80 mg/dl 1.40 mg/dl Est Creatinine Clear Calc Drug Dose 38.2 ml/min 49.2 ml/min Estimated GFR () 43.0 58.3 Estimated GFR (Non- 37.1 50.3 BUN/Creatinine Ratio 12.7 14.6 Random Glucose 75 mg/dl 84 mg/dl Calcium Level 10.3 mg/dl 8.9 mg/dl White Blood Count 5.64 K/uL Red Blood Count 3.14 M/uL Hemoglobin 7.6 g/dL Hematocrit 24.6 % Mean Corpuscular Volume 78.3 fL Mean Corpuscular Hemoglobin 24.2 pg Mean Corpuscular Hemoglobin Concent 30.9 g/dl RDW Standard Deviation 48.9 fL RDW Coefficient of Variation 17.1 % Platelet Count 345 K/uL Mean Platelet Volume 9.5 fL Magnesium Level 1.7 mg/dl Assessment & Plan 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 no more tums. improving with aggressive iv fluids. spep, pthrp and chaitanya levels are pending. pth was appropriately low. calcium levels have improved. Anemia-likely iron deficiency anemia-bleeding has improved. continue the oral iron supplement. pt breast feeding and hesitant to give iv iron in that setting. will need to follow hg levels as an outpt and transfuse if hg under 7. should hopefully start to improve. would recommend initiating control pill with the 6 week checkup and defer to passenger representative for that. NANDO-likely prerenal-not back to baseline and would continue iv fluids till the afternoon and consider discharge at that time with repeat cbc, bmp on sunday.
--- NOTE | 2016-08-30 11:39 | Discharge Instructions ---
Discharge Instructions Admission Reason for Admission: Hypercalcemia Discharge Discharge Diagnosis / Problem: Elevated calcium and acute renal failure Discharge Goals Goal(s): Improve disease control Activity Recommendations Activity Limitations: resume your previous activity . Instructions / Follow-Up Instructions / Follow-Up Please follow up with Family Medicine Dr. Baird on September 04 at 10:10am. You will need to have blood work done at this visit (CBC, BMP). Please follow up with Nephrology Dr. Pickard on September 13 at 1:40pm. Please drink plenty of water each day. Please do not take TUMS every day. You can take over the counter Pepcid as needed for heartburn. Current Hospital Diet Patient's current hospital diet: Regular Diet Discharge Diet Recommended Diet: Regular Diet Pending Studies Studies pending at discharge: yes List of pending studies: Electrophoresis, KASSIE level, PTHrP Medical Emergencies . Who to Call and When: Medical Emergencies: If at any time you feel your situation is an emergency, please call 911 immediately. . Non-Emergent Contact Non-Emergency issues call your: Primary Care Provider . . "Provider Documentation" section prepared by Silvia Antonio. VTE Core Measure Inpt VTE Proph given/why not?: SCD's
[2016-08-30 12:45] VITALS: BP 109/67; PULSE 90; TEMP 36.8; O2SAT 97
--- NOTE | 2016-08-30 20:03 | Discharge Summary ---
Discharge Summary Admission Date: Aug 28, 2016 at 22:35 Discharge Date: Aug 30, 2016 Discharge Disposition: Home Principal Diagnosis: Hypercalcemia Secondary Diagnoses/Problems: Acute kidney failure Procedures: Renal ultrasound 1. Increased renal cortical echogenicity, consistent with medical renal disease 2. No evidence of hydronephrosis 3. Incidentally noted fluid and debris within the endometrial cavity CT a/p 1. 2 mm right renal calculus. No ureteral calculi or hydronephrosis. 2. Moderate uterine enlargement consistent with recent state. 3. Normal appendix. 4. No bowel obstruction. Consultations: Nephrology Obstetrics Medication Reconciliation Continued Medications: Multivit/Min/Iron/Fol Ac/Pren ( Vitamin) Tab 1 TAB PO DAILY, TAB Potassium Chloride (Potassium Chloride ER) 20 Meq Tab 20 MEQ PO TID Admission Information HPI (per Admitting provider): Medical history significant for chronic anemia (baseline hemoglobin 9, GERD. Recent confinement last April 2016 for hypokalemia 2 to poor PO intake. Patient has had worsening reflux symptoms months prior to childbirth. Patient would take at least 4 tablets of OTC TUMS (calcium carbonate) daily. Sopped her home Famotidine. Two weeks ago the patient confined under OB service for labor. Patient had spontaneous vaginal delivery. After discharge, fair sleep and appetite. No chest pain, no shortness of breath. A good amount of vaginal bleeding which is usual for her w/ previous deliveries in the past. No fever, no chills. She was feeling weak, dizzy, and had bitemporal headache symptoms. No chest pain, no shortness of breath, complaining of dysuria, some flank pain. Seen at the PCP's office. Outpatient blood work showed a creatinine of 2.4, calcium was 16.3. Patient sent to the Emergency Room for evaluation. Physical Exam (per Admitting): VITAL SIGNS: Blood pressure was noted to be BP 136/92, RI 86, RR 18 T 37.3 O2 98RA. GENERAL: Noted to be slightly uncomfortable, no respiratory distress. SKIN: Pallor. HEENT: Pale palp conjunctivae, dry mucosa. NECK: No JVD. supple CHEST: Clear to auscultation. HEART: Regular rate and rhythm. ABDOMEN: Soft. BACK : minimal R flank tenderness. EXTREMITIES: No edema. no tenderness NEUROLOGIC: No gross focality. Hospital Course Patient was admitted with hypercalcemia and acute kidney failure. Nephrology was consulted. This was felt to be possibly related to dehydration and milk- alkali from TUMS usage. Patient received aggressive IVF's with resolution of hypercalcemia and improvement of renal function. OB was consulted and felt that there was no appreciable obstetrical cause of renal insufficiency . Renal ultrasound was unremarkable. CT a/p showed a 2mm right renal calculi. PTH was appropriately low in the setting of hypercalcemia. PTHrP, KASSIE level, anti-ds DNA , complements, and SPEP were pending at the time of discharge. Patient had been started on ceftriaxone for possible UTI given her c/o dysuria. However urinalysis showed a bland sediment and urine culture had mixed probable skin enrique. Patient was not continued on antibiotics upon discharge. Patient did c/o a headache since her delivery. MRV was negative for cerebral thrombus. Headache resolved on the day of discharge. Patient has chronic anemia with a baseline Hgb around 9. Hgb decreased to 7.6 on the day of discharge, likely partly dilutional from the aggressive IVF resuscitation. Lochia was decreasing. Patient will need a CBC and BMP checked at her follow up appointment to ensure resolution and stabilization of labs abnormalities during hospitalization. Patient deemed stable for discharge with Family Medicine follow up. PE on discharge: General- awake; alert; NAD Eyes- EOMI; no scleral icterus Neck- no stridor; trachea midline Lungs- CTA bilaterally; no wheezes/crackles Heart- RRR; no m/r/g Abdomen- soft; NTND; nBS Back- no CVA tenderness; no gross abnormalities Extremities- no c/c/e; no deformity Neuro- no gross focal deficits Skin- no appreciable rash . Total time spent on discharge = This includes examination of the patient, discharge planning, medication reconciliation, and communication with other providers. Discharge Instructions Discharge Instructions Admission Reason for Admission: Hypercalcemia Discharge Discharge Diagnosis / Problem: Elevated calcium and acute renal failure Discharge Goals Goal(s): Improve disease control Activity Recommendations Activity Limitations: resume your previous activity . Instructions / Follow-Up Instructions / Follow-Up Please follow up with Family Medicine Dr. Biard on September 04 at 10:10am. You will need to have blood work done at this visit (CBC, BMP). Please follow up with Nephrology Dr. Pickard on September 13 at 1:40pm. Please drink plenty of water each day. Please do not take TUMS every day. You can take over the counter Pepcid as needed for heartburn. Current Hospital Diet Patient's current hospital diet: Regular Diet Discharge Diet Recommended Diet: Regular Diet Pending Studies Studies pending at discharge: yes List of pending studies: Electrophoresis, KASSIE level, PTHrP Medical Emergencies . Who to Call and When: Medical Emergencies: If at any time you feel your situation is an emergency, please call 911 immediately. . Non-Emergent Contact Non-Emergency issues call your: Primary Care Provider . . "Provider Documentation" section prepared by Silvia Antonio. VTE Core Measure Inpt VTE Proph given/why not?: SCD's Additional Copies To JOHANNE EDWARDS M.D.
[2016-08-31 19:48] LABS: ALBUMIN 2.4 G/DL (3.8-4.8); GAMMA GLOBULIN 0.7 G/DL (0.8-1.7); TOTAL PROTEIN 4.9 G/DL (6.2-8.3)
== END 2016-08-30 13:09 | disposition home or self-care (01) | DRG 683 ==
LOC: ENRESERVDT → ENRESERVTM → C.EDB 17:14 → C.MS4N 22:35
PROVIDERS: ADMIT Internal Medicine; ATTEND Internal Medicine
DX: N17.9 Acute kidney failure, unspecified (principal); E87.3 Alkalosis; E83.52 Hypercalcemia; E86.0 Dehydration; R51 Headache; E87.6 Hypokalemia; K21.9 Gastro-esophageal reflux disease without esophagitis; T47.1X5A Adverse effect of other antacids and anti-gastric-secretion drugs, initial encounter; Y92.019 Unspecified place in single-family (private) house as the place of occurrence of the external cause; E83.42 Hypomagnesemia; D50.9 Iron deficiency anemia, unspecified

== ENCOUNTER → 2016-11-24 | Outpatient (CLI) | payer OTHER ==
[~2016-11-24] MED LIST changes: +POTA-65 PO
[2016-11-24 10:41] LABS: ALLEN TEST POS (POS); ARTERIAL BLD GAS O2 SATURATION 97.7 % (90-95); ARTERIAL BLOOD GAS BASE EXCESS 8.4 mEq/L (-9-1.8); ARTERIAL BLOOD GAS HCO3 33 mmol/L (19-24); ARTERIAL BLOOD GAS PO2 99 mm/Hg (80-95); ARTERIAL BLOOD GAS pH 7.49 (7.35-7.45); O2 ADMINISTRATION ROOM AIR
== END | disposition home or self-care (01) ==
LOC: C.LAB 09:59
PROVIDERS: ATTEND Registered Nurse
DX: E87.3 Alkalosis (principal); E83.52 Hypercalcemia; E87.5 Hyperkalemia; D50.9 Iron deficiency anemia, unspecified; N17.9 Acute kidney failure, unspecified

== ENCOUNTER 2017-09-24 03:58 | Emergency (ER) | payer OTHER ==
[~2017-09-24] VITALS: Ht 162.6 cm; Wt 50.0 kg
[2017-09-24 04:00] VITALS: TEMP 36.6; Ht 162.6 cm; Wt 50.0 kg
[2017-09-24] MEDS ORDERED: ALBUT/IPRATROP 3MG/0.5MG NEB 3 ML VIAL INH STA (04:12)
[2017-09-24] MEDS ORDERED: ALBUTEROL HFA 8 GM INHALER INH STA (04:12)
[2017-09-24] MEDS ORDERED: SODIUM CHLORIDE 0.9% 1000ML 1,000 ML IV STA (04:13)
[2017-09-24] MEDS ORDERED: FERR1TAB23 PO (04:38)
[2017-09-24 04:47] LABS: BASO % 0.2 %; BASO ABS # 0.01 K/uL (0-0.2); EOS % 0.8 %; EOS ABS # 0.04 K/uL (0-0.5); HEMATOCRIT 38.3 % (37-47); HEMOGLOBIN 13.3 g/dL (12.0-16.0); IG# 0.01 K/uL (0.00-0.02); LYMPH % 31.5 %; LYMPH ABS # 1.52 K/uL (1.2-3.4); MEAN CELL VOLUME 82.5 fL (80-100); MEAN CORPUSCULAR HEMOGLOBIN 28.7 pg (25-34); MEAN CORPUSCULAR HGB CONC 34.7 g/dl (32-36); MEAN PLATELET VOLUME 9.3 fL (7.4-10.4); MONO % 9.9 %; MONO ABS # 0.48 K/uL (0.11-0.59); NEUT % 57.4 %; NEUT ABS # 2.77 K/uL (1.4-6.5); PLATELET COUNT 317 K/uL (130-400); RED CELL DISTRIBUTION WIDTH CV 13.6 % (11.5-14.5); RED CELL DISTRIBUTION WIDTH SD 41.2 fL (36.4-46.3); WHITE BLOOD COUNT 4.83 K/uL (4.8-10.8)
[2017-09-24 05:13] LABS: ALBUMIN 3.7 gm/dl (3.4-5.0); CALCIUM 9.4 mg/dl (8.5-10.1); CREATININE 0.83 mg/dl (0.60-1.20); POTASSIUM 2.6 mmol/L (3.5-5.1)
[2017-09-24 05:24] LABS: TOTAL PROTEIN 7.6 gm/dl (6.4-8.2)
[2017-09-24] MEDS ORDERED: POTASSIUM CHLORIDE 10 MEQ TABCR PO STA (05:27)
[2017-09-24 05:30] VITALS: BP 100/64; PULSE 98; O2SAT 97
--- NOTE | 2017-09-24 05:35 | EMERGENCY ROOM VISIT NOTE ---
History First contact with patient: 04:08 Chief Complaint: SORETHROAT Stated Complaint: DON'T FEEL WELL,THROAT/CHEST PAIN History of Present Illness The patient is a 32 year old female who presents to the Emergency Room with complaints of cough, congestion, weakness, fatigue and body aches for the past day who kids are sick with flulike illness. Patient was here last year for acute renal failure. Patient states she does not feel like this currently. Patient states when she coughs she has some chest discomfort. Not constantly and not exertional. Patient does not smoke or drinks alcohol or uses drugs. Patient states she has 5 kids at home that she cares for. Patient had no documented temperature. Patient denies dyspnea, abdominal pain, vomiting, diarrhea, earache, vomiting, diarrhea, neck stiffness, sore throat, excessive Tums use. She is tolerating p.o. fluids and food. Review of Systems An 10 system review of systems was completed with positives and pertinent negatives listed in the HPI. Past Medical/Surgical History Medical Problems: (1) Bicornuate uterus (2) GERD (gastroesophageal reflux disease) Surgical Problems: (1) H/O wisdom tooth extraction Family History No significant family history Social History Smoking Status: Current Every Day Smoker Marital Status: Housing Status: lives with family Occupation Status: unemployed Current/Historical Medications Scheduled Ferrous Sulfate (Iron), 1 TAB PO TID Multivit/Min/Iron/Fol Ac/Pren ( Vitamin), 1 TAB PO DAILY Potassium Chloride (Potassium Chloride ER), 20 MEQ PO TID Physical Exam Vital Signs Date Time Temp Pulse Resp B/P (MAP) Pulse Ox O2 Delivery O2 Flow Rate FiO2 09/24/17 05:30 98 16 100/64 97 Room Air 09/24/17 04:38 Room Air 09/24/17 04:34 72 09/24/17 04:00 36.6 101 22 128/86 98 Room Air Physical Exam VITALS: Vitals are noted on the nurse's note and reviewed by myself. Vital signs stable. GENERAL: Pleasant female, in no acute distress, nondiaphoretic, well-developed well-nourished. SKIN: The skin was without rashes, erythema, edema, or bruising. There is no tenting of the skin. Capillary reflex less than 2 seconds. HEAD: Normocephalic atraumatic. EARS: External auditory canals clear, tympanic membranes pearly logan without erythema or effusion bilaterally. EYES: Pupils equal round and reactive to light and accommodation. Conjunctivae without injection, sclerae without icterus. Extraocular movements intact. NOSE: Patent, turbinates without inflammation or discharge. No sinus tenderness. MOUTH: Mucous membranes moist. Pharynx without erythema or exudate. Uvula midline. Airway patent. Tongue does not deviate. NECK: Supple without nuchal rigidity. No lymphadenopathy. No thyromegaly. Cervical spine is nontender. No JVD. HEART: Regular rate and rhythm without murmurs gallops or rubs. LUNGS: Mild diffuse end expiratory wheezes, without rales or rhonchi. No retractions or accessory muscle use. ABDOMEN: Positive bowel sounds x 4. Normal tympanic percussion. Soft, nontender, without masses or organomegaly. Foster sign negative. No guarding or rebound tenderness. No CVA tenderness MUSCULOSKELETAL: No muscle atrophy, erythema, or edema noted. NEURO: Patient was alert and oriented to person place and time. Normal sensation to light and sharp touch. No focal neurological deficits. Medical Decision & Procedures Laboratory Results 09/24/17 04:35 Red Blood Count 4.64, Mean Corpuscular Volume 82.5, Mean Corpuscular Hemoglobin 28.7, Mean Corpuscular Hemoglobin Concent 34.7, Mean Platelet Volume 9.3, Neutrophils (%) (Auto) 57.4, Lymphocytes (%) (Auto) 31.5, Monocytes (%) (Auto) 9.9, Eosinophils (%) (Auto) 0.8, Basophils (%) (Auto) 0.2, Neutrophils # (Auto) 2.77, Lymphocytes # (Auto) 1.52, Monocytes # (Auto) 0.48, Eosinophils # (Auto) 0.04, Basophils # (Auto) 0.01 09/24/17 04:35 Test 09/24/17 04:35 09/24/17 04:40 09/24/17 05:27 White Blood Count 4.83 K/uL (4.8-10.8) Red Blood Count 4.64 M/uL (4.2-5.4) Hemoglobin 13.3 g/dL (12.0-16.0) Hematocrit 38.3 % (37-47) Mean Corpuscular Volume 82.5 fL (80-100) Mean Corpuscular Hemoglobin 28.7 pg (25-34) Mean Corpuscular Hemoglobin Concent 34.7 g/dl (32-36) Platelet Count 317 K/uL (130-400) Mean Platelet Volume 9.3 fL (7.4-10.4) Neutrophils (%) (Auto) 57.4 % Lymphocytes (%) (Auto) 31.5 % Monocytes (%) (Auto) 9.9 % Eosinophils (%) (Auto) 0.8 % Basophils (%) (Auto) 0.2 % Neutrophils # (Auto) 2.77 K/uL (1.4-6.5) Lymphocytes # (Auto) 1.52 K/uL (1.2-3.4) Monocytes # (Auto) 0.48 K/uL (0.11-0.59) Eosinophils # (Auto) 0.04 K/uL (0-0.5) Basophils # (Auto) 0.01 K/uL (0-0.2) RDW Standard Deviation 41.2 fL (36.4-46.3) RDW Coefficient of Variation 13.6 % (11.5-14.5) Immature Granulocyte % (Auto) 0.2 % Immature Granulocyte # (Auto) 0.01 K/uL (0.00-0.02) Anion Gap 6.0 mmol/L (3-11) Est Creatinine Clear Calc Drug Dose 77.5 ml/min Estimated GFR () 108.9 Estimated GFR (Non- 94.0 BUN/Creatinine Ratio 16.9 (10-20) Calcium Level 9.4 mg/dl (8.5-10.1) Magnesium Level 2.3 mg/dl (1.8-2.4) Total Bilirubin 0.4 mg/dl (0.2-1) Direct Bilirubin 0.1 mg/dl (0-0.2) Aspartate Amino Transf (AST/SGOT) 13 U/L (15-37) Alanine Aminotransferase (ALT/SGPT) 18 U/L (12-78) Alkaline Phosphatase 76 U/L (45-117) Total Protein 7.6 gm/dl (6.4-8.2) Albumin 3.7 gm/dl (3.4-5.0) Thyroid Stimulating Hormone (TSH) 6.210 uIu/ml (0.300-4.500) Human Chorionic Gonadotropin, Qual NEG (NEG) Bedside Troponin I < 0.030 ng/ml (0-0.045) Medications Administered Medications (Trade) Dose Ordered Sig/Geraldine Route Start Time Stop Time Status Last Admin Dose Admin Albuterol/ Ipratropium (Duoneb) 3 ml NOW STAT INH 09/24/17 04:12 09/24/17 04:14 DC 09/24/17 04:37 3 ML Albuterol (Ventolin Hfa Inhaler) 2 puffs ONE STAT INH 09/24/17 04:12 09/24/17 04:14 DC 09/24/17 04:37 2 PUFFS Sodium Chloride 1,000 ml @ 999 mls/hr Q1H1M STAT IV 09/24/17 04:13 09/24/17 05:13 DC 09/24/17 04:37 999 MLS/HR ED Course Prior records/ancillary studies reviewed and summarized above. Nursing notes reviewed. The patient's history was concerning for cough, cold symptoms and weakness. Differential diagnosis: Etiologies such as metabolic, infection, hypo/hyperglycemia, electrolyte abnormalities, cardiac sources, intracerebral event, toxicologic, neurologic, as well as others were entertained. Physical examination: As above. ER treatment provided: IV Lock Nebulizer On reassessment the patient felt better. Diagnostics interpretation by me: ECG: Normal sinus, normal intervals, no acute ST-T wave changes, rate of 66. Impression normal sinus rhythm interpreted by myself The labs revealed hypokalemia. Patient states she has not been taking her potassium supplements this past few days as she has been sick. Negative troponin Imaging studies: Chest x-ray with no acute consolidation, pneumothorax or free air per my interpretation Exam and history seem consistent with bronchitis and low potassium. Patient was given potassium now. She is advised to take 40 mEq of potassium at lunch and dinner and then resume her normal regimen of 20 mEq 3 times daily. She is advised to recheck her potassium in a few days with family care. Patient was neurovascularly and neurologically intact. She is well-appearing. No signs of pneumonia. She is advised to take medicines as directed, rest, stay well- hydrated follow-up family care in a few days here in the ER sooner for high fevers, lethargy, neck stiffness, chest pains, worsening signs or symptoms or as needed.By the evaluation outlined above emergent etiologies such as cardiac sources, intracerebral event, toxologic, neurologic, abnormalities blood glucose, metabolic, as well as others were deemed relatively unlikely. The pt informed about the findings as listed above. All questions were answered and pleased with the treatment. Return instructions were outlined and the patient was discharged in stable condition. Referral: The patient was referred back to primary care physician for follow-up in 2 to 3 days for a recheck of the current condition. Case reviewed with my attending The chart was completed utilizing a[employer] Speech voice recognition software. Grammatical errors, random word insertions, pronoun errors, and incomplete sentences are an occassional consequence of this system due to software limitations, ambient noise, and hardware issues. Any formal questions or concerns about the content, text, or information contained within the body of this dictation should be directly addressed to the physician cable splicer assistant for clarification. Medical Decision As above Medication Reconcilliation Current Medication List: was personally reviewed by me Blood Pressure Screening Patient's blood pressure: Normal blood pressure Impression Primary Impression: Acute bronchitis Additional Impression: Hypokalemia Departure Information Dispostion Home / Self-Care Condition GOOD Referrals Fernando Arreguin, D.O. (PCP) Patient Instructions My [facility] Additional Instructions Take 40 mEq of potassium at lunchtime and dinner today and then resume your normal regimen. Recheck your potassium in 2-3 days with family care. Acetaminophen(Tylenol) may be used for fever or pain. Use 1000mg every six hours as needed. Avoid using more than 3000mg in a 24 hour period. (AND/OR) Ibuprofen(Motrin, Advil) may be used for fever or pain. Use 600mg every six hours as needed. Take with food. Avoid using more than 2400mg in a 24 hour period. Do not use 2400mg per day for more than three consecutive days without physician direction. Prolonged inappropriate use can lead to stomach upset or ulcers. Afrin nasal spray: 2-3 sprays to each nostril twice daily as needed for congestion. Do not use for more than 3-4 days because it can lead to worsening rebound congestion. Pseudoephedrine(Sudaphed): 30-60mg every 6 hours as needed for nasal congestion. Do not take this with other stimulant products or supplements. Albuterol Inhaler: Take 2 puffs four times daily for seven days, then as needed. Rest and drink plenty of fluids. Controlling your fever with Tylenol and Ibuprofen as above will make you feel better. Wash your hands after nose blowing, sneezing, or coughing. Most germs are spread through contact, therefore improper hygiene may result in your close contacts and loved ones becoming ill just like you. Continue current medications. Return to the ER for severe headache, neck stiffness, chest pain, difficulty breathing, fevers, vomiting, worsening of your condition, or as needed. Follow up with your primary physician this week for a recheck of your current condition. Problem Qualifiers Primary Impression: Acute bronchitis Bronchitis organism: unspecified organism Qualified Codes: J20.9 - Acute bronchitis, unspecified
[2017-09-24 05:52] LABS: INFLUENZA B ANTIGEN Neg for Influ B (NEG)
--- NOTE | 2017-09-24 06:42 | DIAGNOSTIC IMAGING REPORT ---
CHEST 2 VIEWS ROUTINE HISTORY: 32 years-old Female cough/congestion acute cough COMPARISON: Chest radiograph 08/29/2016 TECHNIQUE: PA and lateral views of the chest FINDINGS: The cardiomediastinal and hilar silhouettes are within normal limits. Lungs are mildly hyperinflated. There is no pneumothorax, pleural effusion, focal airspace consolidation or overt pulmonary edema. The bones of the chest appear to be grossly intact. IMPRESSION: No acute process. The above report was generated using voice recognition software. It may contain grammatical, syntax or spelling errors. Electronically signed by: Rod Gonzalez M.D. 09/24/2017 6:40 AM Dictated Date/Time: 09/24/2017 6:39 AM
[2017-09-25] MEDS ORDERED: PRENTAB26 PO (10:32)
[2017-09-25] MEDS ORDERED: IRON5TAB PO (15:46)
[2017-09-25] MEDS ORDERED: POTA-65 PO (20:44)
== END 2017-09-24 05:47 | disposition home or self-care (01) ==
LOC: C.EDB 03:59
DX: J20.9 Acute bronchitis, unspecified (principal); E87.6 Hypokalemia; R53.83 Other fatigue; R53.1 Weakness; K21.9 Gastro-esophageal reflux disease without esophagitis; Z79.899 Other long term (current) drug therapy; F17.200 Nicotine dependence, unspecified, uncomplicated

== ENCOUNTER 2017-09-25 15:04 | Emergency (ER) | payer OTHER ==
[~2017-09-25] VITALS: Ht 162.6 cm; Wt 51.9 kg
[~2017-09-25 15:04] MED LIST changes: +FERR1TAB23 PO; -POTA-65 PO
[2017-09-25 15:06] VITALS: TEMP 37; Ht 162.6 cm; Wt 51.9 kg
[2017-09-25] MEDS ORDERED: LACTATED RINGER'S 1000ML 1,000 ML IV STA (15:18)
[2017-09-25] MEDS ORDERED: KETOROLAC TROMETHAMINE 30 MG/ML VIAL IV STA ×2 (15:23→16:10)
[2017-09-25 15:30] LABS: BASO % 0.1 %; BASO ABS # 0.01 K/uL (0-0.2); EOS % 0.4 %; EOS ABS # 0.03 K/uL (0-0.5); HEMOGLOBIN 13.6 g/dL (12.0-16.0); IG# 0.01 K/uL (0.00-0.02); LYMPH % 12.1 %; LYMPH ABS # 1.01 K/uL (1.2-3.4); MEAN CORPUSCULAR HEMOGLOBIN 28.6 pg (25-34); MEAN PLATELET VOLUME 9.4 fL (7.4-10.4); NEUT % 81.3 %; PLATELET COUNT 322 K/uL (130-400); RED CELL DISTRIBUTION WIDTH CV 13.8 % (11.5-14.5); RED CELL DISTRIBUTION WIDTH SD 42.4 fL (36.4-46.3); WHITE BLOOD COUNT 8.36 K/uL (4.8-10.8)
[2017-09-25 15:36] VITALS: O2SAT 97
--- NOTE | 2017-09-25 15:36 | DIAGNOSTIC IMAGING REPORT ---
SINGLE VIEW CHEST CLINICAL HISTORY: Left-sided chest pain. FINDINGS: An AP, portable, upright chest radiograph is compared to study dated 09/24/2017. The examination is degraded by portable technique and patient rotation. The cardiomediastinal silhouette is unremarkable. The lungs and pleural spaces are clear. No pneumothorax is seen. The bony thorax is grossly intact. IMPRESSION: No active disease in the chest. Electronically signed by: Lauro Rubio M.D. 09/25/2017 3:35 PM Dictated Date/Time: 09/25/2017 3:34 PM
[2017-09-25 15:40] LABS: INR 0.9 (0.9-1.1); PTT PATIENT 24.9 SECONDS (21.0-31.0)
[2017-09-25] MEDS ORDERED: IRON5TAB PO (15:46)
--- NOTE | 2017-09-25 15:59 | EMERGENCY ROOM VISIT NOTE ---
History Report prepared by Rolo: Loren Spencer Under the Supervision of: Dr. Emigdio Young M.D. First contact with patient: 15:10 Chief Complaint: CHEST PAIN Stated Complaint: CHEST PAIN History of Present Illness The patient is a 32 year old female who presents to the Emergency Room with complaints of fluctuating chest pain since last night. She was seen here in the ED early yesterday morning for the same symptoms and was diagnosed with bronchitis and low Potassium. She rates her current pain as a 5/10 in severity. Movement and breathing worsen her discomfort. She also complains of diaphoresis , dizziness and a productive cough that has been improving. She notes she feels bloated which is unusual for her. Her last BM was earlier today and normal. She also notes when she experiences the chest pain, her bilateral hands "feel numb and cold". She has the pain fluctuates but never goes away completely. She has had this since her last ER visit. The patient denies any LOC, headache, fevers, chills, visual changes, neck pain, breathing difficulties, nausea, vomiting, abdominal pain, back pain, melena, hematochezia, urinary symptoms, weakness, lymphadenopathy, rash, or other complaints. Source of History: patient Onset: last night Position: chest Symptom Intensity: 5/10 Timing: other (intermittent) Modifying Factors (Worsening): breathing, movement Associated Symptoms: + diaphoresis, + cough, + numbness (bilateral hands) Review of Systems See HPI for pertinent positives and negatives. A total of ten systems were reviewed and were otherwise negative. Past Medical & Surgical Medical Problems: (1) Bicornuate uterus (2) GERD (gastroesophageal reflux disease) Surgical Problems: (1) H/O wisdom tooth extraction Family History No significant family history Social History Smoking Status: Never Smoker Alcohol Use: occasionally Drug Use: none Marital Status: Housing Status: lives with family Occupation Status: unemployed Current/Historical Medications Scheduled Iron-Vitamin C (Iron 100/C), 1 TAB PO TID Multivit/Min/Iron/Fol Ac/Pren ( Vitamin), 1 TAB PO DAILY Potassium Chloride (Potassium Chloride ER), 20 MEQ PO TID Allergies Coded Allergies: No Known Allergies (Verified , 09/24/17) Physical Exam Vital Signs Date Time Temp Pulse Resp B/P (MAP) Pulse Ox O2 Delivery O2 Flow Rate FiO2 09/25/17 16:23 89 16 102/66 98 Room Air 09/25/17 15:36 97 Room Air 09/25/17 15:36 97 Room Air 09/25/17 15:36 105 16 107/85 97 Room Air 09/25/17 15:36 97 Room Air 09/25/17 15:18 119 09/25/17 15:06 37.0 116 17 121/61 99 Room Air Physical Exam GENERAL: Awake, alert, anxious-appearing, in no distress HENT: Normocephalic, atraumatic. Oropharynx unremarkable. EYES: Normal conjunctiva. Sclera non-icteric. NECK: Supple. No nuchal rigidity. FROM. No masses. RESPIRATORY: Clear to auscultation. No wheezes. CHEST: Left chest tenderness on exam, palpation reproduces pain. CARDIAC: Borderline tachycardic heart rate. Normal rhythm. No murmurs. No rubs. Extremities warm and well perfused. Pulses equal. No JVD. GI: Soft, non-distended. No tenderness to palpation. No rebound or guarding. No masses. RECTAL: Deferred. MUSCULOSKELETAL: Atraumatic. Chest examination reveals no tenderness. The back is symmetrical on inspection without obvious abnormality. There is no CVA tenderness to palpation. No joint edema. LOWER EXTREMITIES: Calves are equal size bilaterally and non-tender. No edema. No discoloration. NEURO: Normal sensorium. No sensory or motor deficits noted. SKIN: No rash or jaundice noted. Medical Decision & Procedures ER Provider Diagnostic Interpretation: Radiology results as stated below per my review and radiologist interpretation: SINGLE VIEW CHEST CLINICAL HISTORY: Left-sided chest pain. FINDINGS: An AP, portable, upright chest radiograph is compared to study dated 09/24/2017. The examination is degraded by portable technique and patient rotation. The cardiomediastinal silhouette is unremarkable. The lungs and pleural spaces are clear. No pneumothorax is seen. The bony thorax is grossly intact. IMPRESSION: No active disease in the chest. Electronically signed by: Lauro Rubio M.D. 09/25/2017 3:35 PM Laboratory Results 09/25/17 15:18 Red Blood Count 4.76, Mean Corpuscular Volume 84.0, Mean Corpuscular Hemoglobin 28.6, Mean Corpuscular Hemoglobin Concent 34.0, Mean Platelet Volume 9.4, Neutrophils (%) (Auto) 81.3, Lymphocytes (%) (Auto) 12.1, Monocytes (%) (Auto) 6.0, Eosinophils (%) (Auto) 0.4, Basophils (%) (Auto) 0.1, Neutrophils # (Auto) 6.80, Lymphocytes # (Auto) 1.01, Monocytes # (Auto) 0.50, Eosinophils # (Auto) 0.03, Basophils # (Auto) 0.01 09/25/17 15:18 Test 09/25/17 15:18 09/25/17 15:23 White Blood Count 8.36 K/uL (4.8-10.8) Red Blood Count 4.76 M/uL (4.2-5.4) Hemoglobin 13.6 g/dL (12.0-16.0) Hematocrit 40.0 % (37-47) Mean Corpuscular Volume 84.0 fL (80-100) Mean Corpuscular Hemoglobin 28.6 pg (25-34) Mean Corpuscular Hemoglobin Concent 34.0 g/dl (32-36) Platelet Count 322 K/uL (130-400) Mean Platelet Volume 9.4 fL (7.4-10.4) Neutrophils (%) (Auto) 81.3 % Lymphocytes (%) (Auto) 12.1 % Monocytes (%) (Auto) 6.0 % Eosinophils (%) (Auto) 0.4 % Basophils (%) (Auto) 0.1 % Neutrophils # (Auto) 6.80 K/uL (1.4-6.5) Lymphocytes # (Auto) 1.01 K/uL (1.2-3.4) Monocytes # (Auto) 0.50 K/uL (0.11-0.59) Eosinophils # (Auto) 0.03 K/uL (0-0.5) Basophils # (Auto) 0.01 K/uL (0-0.2) RDW Standard Deviation 42.4 fL (36.4-46.3) RDW Coefficient of Variation 13.8 % (11.5-14.5) Immature Granulocyte % (Auto) 0.1 % Immature Granulocyte # (Auto) 0.01 K/uL (0.00-0.02) Prothrombin Time 9.5 SECONDS (9.0-12.0) Prothromb Time International Ratio 0.9 (0.9-1.1) Activated Partial Thromboplast Time 24.9 SECONDS (21.0-31.0) Partial Thromboplastin Ratio 1.0 Anion Gap 7.0 mmol/L (3-11) Est Creatinine Clear Calc Drug Dose 91.5 ml/min Estimated GFR () 127.2 Estimated GFR (Non- 109.7 BUN/Creatinine Ratio 19.3 (10-20) Calcium Level 9.0 mg/dl (8.5-10.1) Total Bilirubin 0.3 mg/dl (0.2-1) Direct Bilirubin < 0.1 mg/dl (0-0.2) Aspartate Amino Transf (AST/SGOT) 12 U/L (15-37) Alanine Aminotransferase (ALT/SGPT) 20 U/L (12-78) Alkaline Phosphatase 90 U/L (45-117) Total Creatine Kinase 70 U/L (26-192) Creatine Kinase MB 0.8 ng/ml (0.5-3.6) Creatine Kinase MB Ratio 1.1 (0-3.0) Total Protein 8.6 gm/dl (6.4-8.2) Albumin 4.0 gm/dl (3.4-5.0) Lipase 356 U/L (73-393) Human Chorionic Gonadotropin, Qual NEG (NEG) Bedside D-Dimer 357 ng/mlFEU (0-450) Bedside Troponin I < 0.030 ng/ml (0-0.045) Laboratory results reviewed by me Medications Administered Medications (Trade) Dose Ordered Sig/Geraldine Route Start Time Stop Time Status Last Admin Dose Admin Lactated Ringer's 1,000 ml @ 200 mls/hr Q5H STAT IV 09/25/17 15:18 09/25/17 20:17 09/25/17 15:33 200 MLS/HR Ketorolac Tromethamine (Toradol Inj) 15 mg NOW STAT IV 09/25/17 15:23 09/25/17 15:25 DC 09/25/17 15:31 15 MG Ketorolac Tromethamine (Toradol Inj) 15 mg NOW STAT IV 09/25/17 16:10 09/25/17 16:11 DC 09/25/17 16:19 15 MG Acetaminophen/ Hydrocodone Bitart ([place] 5/325mg Home Pack) 1 homepack UD ONCE PO 09/25/17 16:15 3/6/18 16:16 DC 09/25/17 16:19 1 HOMEPACK ECG Per My Interpretation Indication: chest pain Rate (beats per minute): 97 Rhythm: sinus rhythm (with sinus arrhythmia) Findings: nonspecific-ST abn, no acute ischemic change, no ectopy, other ( short CA interval) ED Course 1517: The patient was evaluated in room B11. A complete history and physical exam was performed. 1518: Lactated Ringers 1000 ml @ 200 mls/hr IV. 1523: Toradol 15 mg IV. 1605: I reevaluated the patient. She is still having pain. I will order more Toradol. I also updated her on her imaging results so far. 1610: Toradol 15 mg IV. 1615: [place] 5/325 mg 1 homepack PO. 1620: I reevaluated the patient. She is feeling better. I discussed her results and discharge instructions and she verbalized complete understanding and agreement. Medical Decision Triage Nursing notes reviewed. The patient's presentation and history were concerning for chest pain and low potassium. Etiologies such as costochondritis, pleurisy, electrolyte abnormality, cardiac ischemia, aortic dissection, pulmonary embolism, pneumonia, pneumothorax, musculoskeletal, infections, gastrointestinal, as well as others were entertained. The patient was evaluated. She was tender in the left side of her chest. There is no acute ischemia on her ECG. No pericarditis noted. She was given a small dose of Toradol. X-ray imaging was performed. Blood work performed. She was hydrated. The patient's chest x-ray was negative. She was still having some discomfort on reassessment. She was given the second half of the Toradol dose. The patient had unremarkable CBC and chemistry panel. Her troponin was negative. A single troponin was performed due to the duration of her pain. The patient had a negative d-dimer as well. The patient has tenderness on the left side of her chest on examination. She has had a bronchitis. I suspect a costochondritis or pleurisy Etiology. I discussed conservative management. The patient was given a [place] home pack as she drove herself to the ER. She will use ibuprofen. She will follow-up with her primary physician. I gave my usual and customary discussion regarding this issue. Weight By the evaluation outlined above other emergent etiologies such as those listed in the differential, as well as others, were deemed relatively unlikely. The patient was educated about the findings as listed above. All questions were answered and the patient was pleased with the treatment. Return instructions were outlined and the patient was discharged in stable condition. The patient was referred to her PCP for follow-up for a recheck of the current condition. Medication Reconcilliation Current Medication List: was personally reviewed by me Blood Pressure Screening Patient's blood pressure: Normal blood pressure Blood pressure disposition: Did not require urgent referral Impression Primary Impression: Left sided chest pain Scribe Attestation The scribe's documentation has been prepared under my direction and personally reviewed by me in its entirety. I confirm that the note above accurately reflects all work, treatment, procedures, and medical decision making performed by me. Departure Information Dispostion Home / Self-Care Referrals Monse GOLDMAN M.D. (PCP) Patient Instructions My [facility] Additional Instructions CHEST PAIN INSTRUCTIONS: Hydrocodone/acetaminophen 5/325mg: Take 1 pill every 6 hours as needed for pain. Avoid additional Acetaminophen/Tylenol, alcohol, operating machinery or dangerous equipment, working on ladders or roofs, DRIVING, or situations where being under the influence may be dangerous. It is recommended to use a stool softener such as Colace, 100mg twice daily while taking this medication to avoid constipation. Ibuprofen(Motrin, Advil) may be used for fever or pain. Use 600mg every six hours as needed. Take with food. Avoid using more than 2400mg in a 24 hour period. Do not use 2400mg per day for more than three consecutive days without physician direction. Prolonged inappropriate use can lead to stomach upset or ulcers. Rest and drink plenty of fluids as tolerated. Continue current medications. Avoid strenuous activities and anything that worsens your pain. Resume normal activities once your symptoms resolve. Return to the ER immediately for worsening or persistent chest pain, abdominal pain, vomiting, fevers, chest pains, difficulty breathing, worsening of your condition, or as needed. Follow up with your primary physician in 2-3 days for a recheck of your current condition.
[2017-09-25 16:02] LABS: ALKALINE PHOSPHATASE 90 U/L (45-117); ALT/SGPT 20 U/L (12-78); AST/SGOT 12 U/L (15-37); BLOOD UREA NITROGEN 14 mg/dl (7-18); CARBON DIOXIDE 25 mmol/L (21-32); CKMB 0.8 ng/ml (0.5-3.6); CREATININE 0.73 mg/dl (0.60-1.20); GLUCOSE 102 mg/dl (70-99); LIPASE 356 U/L (73-393); POTASSIUM 3.7 mmol/L (3.5-5.1); SODIUM 137 mmol/L (136-145); TOTAL PROTEIN 8.6 gm/dl (6.4-8.2)
[2017-09-25] MEDS ORDERED: NORCO 5/325MG HOME PACK PO ONE (16:15)
[2017-09-25 16:54] VITALS: BP 100/64; PULSE 80; O2SAT 100
[2017-09-25] MEDS ORDERED: POTA-65 PO (20:44)
== END 2017-09-25 16:53 | disposition home or self-care (01) ==
LOC: C.EDB 15:06
DX: R07.9 Chest pain, unspecified (principal); E87.6 Hypokalemia

== ENCOUNTER 2017-10-25 20:47 | Emergency (ER) | payer OTHER ==
[~2017-10-25] VITALS: Ht 162.6 cm; Wt 54.2 kg
[~2017-10-25 20:47] MED LIST changes: -FERR1TAB23 PO; +IRON5TAB PO; +POTA-65 PO
[2017-10-25 20:55] VITALS: TEMP 36.6; Ht 162.6 cm; Wt 54.2 kg
[2017-10-25] MEDS ORDERED: SODIUM CHLORIDE 0.9% 1000ML 1,000 ML IV STA (22:31)
[2017-10-25] MEDS ORDERED: KETOROLAC TROMETHAMINE 15 MG/ML VIAL IV STA (22:31)
[2017-10-25] MEDS ORDERED: ONDANSETRON INJ 2 MG/ML 2 ML VIAL IV STA (22:31)
[2017-10-25 22:47] LABS: BASO % 0.3 %; BASO ABS # 0.02 K/uL (0-0.2); EOS % 0.8 %; EOS ABS # 0.06 K/uL (0-0.5); HEMATOCRIT 38.6 % (37-47); HEMOGLOBIN 13.2 g/dL (12.0-16.0); IG# 0.01 K/uL (0.00-0.02); LYMPH % 13.6 %; LYMPH ABS # 1.06 K/uL (1.2-3.4); MEAN CELL VOLUME 83.9 fL (80-100); MEAN CORPUSCULAR HEMOGLOBIN 28.7 pg (25-34); MEAN CORPUSCULAR HGB CONC 34.2 g/dl (32-36); MEAN PLATELET VOLUME 9.9 fL (7.4-10.4); MONO % 8.6 %; MONO ABS # 0.67 K/uL (0.11-0.59); NEUT % 76.6 %; NEUT ABS # 5.97 K/uL (1.4-6.5); PLATELET COUNT 277 K/uL (130-400); RED CELL DISTRIBUTION WIDTH CV 13.8 % (11.5-14.5); RED CELL DISTRIBUTION WIDTH SD 42.4 fL (36.4-46.3); WHITE BLOOD COUNT 7.79 K/uL (4.8-10.8)
--- NOTE | 2017-10-25 23:00 | DIAGNOSTIC IMAGING REPORT ---
HEAD WITHOUT CONTRAST (CT) CLINICAL HISTORY: 32 years-old Female presenting with severe headache, nausea. TECHNIQUE: Multidetector CT imaging of the head was performed without the use of intravenous contrast. IV contrast: None. A dose lowering technique was used consistent with the principles of ALARA (as low as reasonably achievable). COMPARISON: None. CT DOSE (mGy.cm): The estimated cumulative dose is 537.48 mGy.cm. FINDINGS: [employer] topogram: Unremarkable. Ventricles and sulci normal in size. Brain parenchyma normal in appearance with preserved logan-white differentiation. No mass effect or midline shift. No hemorrhage or acute territorial infarct. No extra-axial fluid collection. Paranasal sinuses and mastoid air cells clear. Calvarium intact. IMPRESSION: 1. No acute intracranial abnormality. Electronically signed by: Parth Madrid M.D. 10/25/2017 10:58 PM Dictated Date/Time: 10/25/2017 10:56 PM
[2017-10-25 23:08] LABS: BLOOD UREA NITROGEN 19 mg/dl (7-18); CREATININE 0.55 mg/dl (0.60-1.20); GLUCOSE 82 mg/dl (70-99)
[2017-10-25 23:09] LABS: ALBUMIN 3.7 gm/dl (3.4-5.0); ALT/SGPT 40 U/L (12-78); CALCIUM 8.9 mg/dl (8.5-10.1); CARBON DIOXIDE 25 mmol/L (21-32); POTASSIUM 3.7 mmol/L (3.5-5.1); SODIUM 138 mmol/L (136-145)
[2017-10-25 23:13] LABS: ALKALINE PHOSPHATASE 83 U/L (45-117); AST/SGOT 35 U/L (15-37); TOTAL PROTEIN 7.5 gm/dl (6.4-8.2)
--- NOTE | 2017-10-25 23:55 | EMERGENCY ROOM VISIT NOTE ---
History First contact with patient: 22:13 Chief Complaint: CARDIAC ASSESSMENT Stated Complaint: CHEST/HEART, LEFT PAIN, SEVERE HEADACHE Nursing Triage Summary: Pt reports she was here 1 month ago for chest pain. Pain worsening on left side of chest, headache. Blurry vision History of Present Illness The patient is a 32 year old female who presents to the Emergency Room with multiple complaints. The patient states that she has been having left-sided chest pain for the past 1 month. She was seen here a month ago for bronchitis and again after that. She has worn a monitor which showed short ID and is scheduled for an echocardiogram and cardiology follow-up. She states that the pain is constant and dull with intermittent sharper pains. She states the pains are sometimes in her left arm and neck. The patient additionally reports that she has a severe headache today with mild blurring of her vision. She has been slightly nauseous due to the pain. She rates the discomfort a 7/10. She states this is unusual for her and she does not typically have headaches. She has taken aspirin without relief. The pain is located in the front and back of her head. Additionally, the patient states that she has very heavy menstrual periods and has been told in the past that she loses potassium with her periods. She also has hemorrhoids which bleed. She is concerned she could have a low potassium. The patient is not a smoker. She denies control pills. She denies recent travel. She denies leg pain or swelling. She denies vomiting, fevers, abdominal pain or shortness of breath. Review of Systems A complete 10 point review of systems was reviewed with the patient with pertinent positives and negatives as per history of present illness. All else were negative. Past Medical/Surgical History Medical Problems: (1) Bicornuate uterus (2) GERD (gastroesophageal reflux disease) Surgical Problems: (1) H/O wisdom tooth extraction Family History No significant family history Social History Smoking Status: Never Smoker Alcohol Use: occasionally Drug Use: none Marital Status: Housing Status: lives with family Occupation Status: unemployed Current/Historical Medications Scheduled Iron-Vitamin C (Iron 100/C), 1 TAB PO TID Multivit/Min/Iron/Fol Ac/Pren ( Vitamin), 1 TAB PO DAILY Potassium Chloride (Potassium Chloride ER), 20 MEQ PO TID Physical Exam Vital Signs Date Time Temp Pulse Resp B/P (MAP) Pulse Ox O2 Delivery O2 Flow Rate FiO2 4/6/18 00:37 81 18 104/62 100 Room Air 10/26/17 00:09 71 18 92/79 97 Room Air 10/25/17 23:52 79 18 85/53 98 Room Air 10/25/17 22:46 79 20 103/66 100 Room Air 10/25/17 22:18 85 10/25/17 22:15 Room Air 10/25/17 20:55 36.6 93 16 119/89 99 Room Air Physical Exam VITALS: Vitals are noted on the nurse's note and reviewed by myself. Vital signs stable. GENERAL: This is a 32-year-old female, in no acute distress, nondiaphoretic, well-developed well-nourished. SKIN: The skin was without rashes. HEAD: Normocephalic atraumatic. EARS: External auditory canals clear, tympanic membranes pearly logan without erythema or effusion bilaterally. EYES: Pupils equal round and reactive to light and accommodation. Extraocular movements intact. MOUTH: Mucous membranes moist. Tonsils are not enlarged. Pharynx without erythema or exudate. NECK: Supple without nuchal rigidity. No lymphadenopathy. HEART: Regular rate and rhythm without murmurs gallops or rubs. LUNGS: Clear to auscultation bilaterally without wheezes, rales or rhonchi. No retractions or accessory muscle use. ABDOMEN: Positive bowel sounds x 4. Soft, nontender to palpation. MUSCULOSKELETAL: No tenderness to palpation. Strength 5/5 throughout. NEURO: Patient was alert and oriented to person place and time. Normal sensation to light and sharp touch. No focal neurological deficits. Medical Decision & Procedures ER Provider Diagnostic Interpretation: HEAD WITHOUT CONTRAST (CT) FINDINGS: Double Cutter topogram: Unremarkable. Ventricles and sulci normal in size. Brain parenchyma normal in appearance with preserved logan-white differentiation. No mass effect or midline shift. No hemorrhage or acute territorial infarct. No extra-axial fluid collection. Paranasal sinuses and mastoid air cells clear. Calvarium intact. IMPRESSION: 1. No acute intracranial abnormality. Laboratory Results 10/25/17 22:10 Red Blood Count 4.60, Mean Corpuscular Volume 83.9, Mean Corpuscular Hemoglobin 28.7, Mean Corpuscular Hemoglobin Concent 34.2, Mean Platelet Volume 9.9, Neutrophils (%) (Auto) 76.6, Lymphocytes (%) (Auto) 13.6, Monocytes (%) (Auto) 8.6, Eosinophils (%) (Auto) 0.8, Basophils (%) (Auto) 0.3, Neutrophils # (Auto) 5.97, Lymphocytes # (Auto) 1.06, Monocytes # (Auto) 0.67, Eosinophils # (Auto) 0.06, Basophils # (Auto) 0.02 10/25/17 22:10 Test 10/25/17 22:10 10/25/17 22:35 White Blood Count 7.79 K/uL (4.8-10.8) Red Blood Count 4.60 M/uL (4.2-5.4) Hemoglobin 13.2 g/dL (12.0-16.0) Hematocrit 38.6 % (37-47) Mean Corpuscular Volume 83.9 fL (80-100) Mean Corpuscular Hemoglobin 28.7 pg (25-34) Mean Corpuscular Hemoglobin Concent 34.2 g/dl (32-36) Platelet Count 277 K/uL (130-400) Mean Platelet Volume 9.9 fL (7.4-10.4) Neutrophils (%) (Auto) 76.6 % Lymphocytes (%) (Auto) 13.6 % Monocytes (%) (Auto) 8.6 % Eosinophils (%) (Auto) 0.8 % Basophils (%) (Auto) 0.3 % Neutrophils # (Auto) 5.97 K/uL (1.4-6.5) Lymphocytes # (Auto) 1.06 K/uL (1.2-3.4) Monocytes # (Auto) 0.67 K/uL (0.11-0.59) Eosinophils # (Auto) 0.06 K/uL (0-0.5) Basophils # (Auto) 0.02 K/uL (0-0.2) RDW Standard Deviation 42.4 fL (36.4-46.3) RDW Coefficient of Variation 13.8 % (11.5-14.5) Immature Granulocyte % (Auto) 0.1 % Immature Granulocyte # (Auto) 0.01 K/uL (0.00-0.02) Anion Gap 7.0 mmol/L (3-11) Est Creatinine Clear Calc Drug Dose 126.8 ml/min Estimated GFR () 144.9 Estimated GFR (Non- 125.0 BUN/Creatinine Ratio 34.5 (10-20) Calcium Level 8.9 mg/dl (8.5-10.1) Total Bilirubin 0.2 mg/dl (0.2-1) Aspartate Amino Transf (AST/SGOT) 35 U/L (15-37) Alanine Aminotransferase (ALT/SGPT) 40 U/L (12-78) Alkaline Phosphatase 83 U/L (45-117) Troponin I < 0.015 ng/ml (0-0.045) Total Protein 7.5 gm/dl (6.4-8.2) Albumin 3.7 gm/dl (3.4-5.0) Globulin 3.8 gm/dl (2.5-4.0) Albumin/Globulin Ratio 1.0 (0.9-2) Urine Color YELLOW Urine Appearance CLEAR (CLEAR) Urine pH 5.5 (4.5-7.5) Urine Specific [place] 1.030 (1.000-1.030) Urine Protein NEG (NEG) Urine Glucose (UA) NEG (NEG) Urine Ketones NEG (NEG) Urine Occult Blood TRACE (NEG) Urine Nitrite NEG (NEG) Urine Bilirubin NEG (NEG) Urine Urobilinogen NEG (NEG) Urine Leukocyte Esterase NEG (NEG) Urine WBC (Auto) 0 /hpf (0-5) Urine RBC (Auto) 5-10 /hpf (0-4) Urine Hyaline Casts (Auto) 1-5 /lpf (0-5) Urine Epithelial Cells (Auto) 0-5 /lpf (0-5) Urine Bacteria (Auto) NEG (NEG) Urine Test NEG (NEG) Medications Administered Medications (Trade) Dose Ordered Sig/Geraldine Route Start Time Stop Time Status Last Admin Dose Admin Sodium Chloride 1,000 ml @ 999 mls/hr Q1H1M STAT IV 10/25/17 22:31 10/25/17 23:31 DC 10/25/17 22:44 999 MLS/HR Ondansetron HCl (Zofran Inj) 4 mg NOW STAT IV 10/25/17 22:31 10/25/17 22:33 DC 10/25/17 22:44 4 MG Ketorolac Tromethamine (Toradol Inj) 15 mg NOW STAT IV 10/25/17 22:31 10/25/17 22:33 DC 10/25/17 22:44 15 MG ECG Per My Interpretation Indication: chest pain Rate (beats per minute): 73 Rhythm: normal sinus Findings: no acute ischemic change, no ectopy, other (short ID) Change: no significant change ED Course The patient was evaluated as above. Labs were drawn and IV access was obtained. Patient was medicated with 15 mg Toradol IV. Patient was reevaluated and states that her headache has improved, but she still has the left-sided chest pain. Discharge instructions were reviewed with the patient. The patient verbalized understanding of my assessment and treatment plan and was discharged home in good condition. Medical Decision The differential diagnosis includes acute intracranial bleed, meningitis, encephalitis, mass or mass effect, sinusitis, infection, tumor, headache, exposure, migraine, ACS, pericarditis, myocarditis, pulmonary embolism, among others. The patient is a 32-year-old female who presents today complaining of left- sided chest pain and headache. Labs revealed no leukocytosis, anemia or concerning electrolyte abnormalities. Potassium was within normal limits. Urinalysis was not suggestive of infection. Urine was negative. EKG was interpreted by myself and shows a normal sinus rhythm with short ID, similar to prior. CT of the head was unremarkable. Patient was advised to follow-up with cardiology for her ongoing left-sided chest pain. She was instructed to make an appointment with her primary care provider this week. She was advised to use Tylenol and ibuprofen for pain. She will return here for any worsening or new/concerning symptoms. The patient's case was reviewed with Dr. White, ED attending physician, who agreed with my assessment and treatment plan. Based on the patient's presentation and work up, I feel the patient is stable for outpatient treatment. The patient was educated to return to the emergency department for any worsening of their current condition or new/concerning symptoms. She will follow up with her PCP and cardiology. Medication Reconcilliation Current Medication List: was personally reviewed by me Blood Pressure Screening Patient's blood pressure: Normal blood pressure Impression Primary Impression: Headache Additional Impression: Left sided chest pain Departure Information Dispostion Home / Self-Care Condition GOOD Referrals Monse GOLDMAN M.D. (PCP) Patient Instructions My [facility] Additional Instructions You have been treated in the Emergency Department for your Chest Pain and headache. Laboratory results and Imaging Studies have ruled out any acute cardiac or pulmonary cause of your chest pain. CT scan of your brain was normal. For pain control, you can use the following [id number] medicines (if >12 yo): - Regular strength (325mg/tab) Tylenol (acetaminophen) 2 tabs every 4-6 hours as needed. Do not exceed 12 tablets in a 24 hour period. Avoid taking more than 4 grams (4000 mg) of Tylenol per day. This includes any other sources of acetaminophen you may take on a regular basis. - Regular strength (200 mg/tab) Advil (ibuprofen) 1-2 tabs every 4-6 hours as needed. Do not exceed a dose of 3200 mg per day. You should schedule a follow-up appointment with your Primary Care Provider in 2 -3 days for further evaluation from today's Emergency Department visit. Return to the Emergency Department if your current symptoms worsen despite treatment course outlined above, or if you develop any of the following symptoms : worsening chest pain, associated jaw/arm pain, nausea, dizziness, shortness of breath, bloody cough, or fainting. Problem Qualifiers Primary Impression: Headache Headache type: unspecified Headache chronicity pattern: acute headache Intractability: not intractable Qualified Codes: R51 - Headache
[2017-10-26 00:37] VITALS: BP 104/62; PULSE 81; O2SAT 100
== END 2017-10-26 00:37 | disposition home or self-care (01) ==
LOC: C.EDB 20:49 → C.EDC 10-26 00:37
DX: R07.9 Chest pain, unspecified (principal); R51 Headache; K21.9 Gastro-esophageal reflux disease without esophagitis; Q51.3 Bicornate uterus

== ENCOUNTER 2017-12-02 14:55 | Emergency (ER) | payer OTHER ==
[~2017-12-02] VITALS: Ht 162.6 cm; Wt 57.3 kg
[2017-12-02 15:02] VITALS: TEMP 36.6
[2017-12-02] MEDS ORDERED: PROCHLORPERAZINE 5 MG/ML 2 ML VIAL IV STA (15:14)
[2017-12-02] MEDS ORDERED: SODIUM CHLORIDE 0.9% 1000ML 1,000 ML IV STA (15:14)
[2017-12-02] MEDS ORDERED: DiphenhydrAMINE HCL 50 MG/ML VIAL IV STA (15:14)
[2017-12-02] MEDS ORDERED: MAGNESIUM SULFATE 1GM / D5W 1 GM BAG IV STA (15:14)
[2017-12-02] MEDS ORDERED: ALBUTEROL 0.083% NEBU SOLN 3 ML VIAL INH STA ×2 (15:14→16:41)
[2017-12-02] MEDS ORDERED: ACETAMINOPHEN 500 MG TAB PO STA (15:14)
--- NOTE | 2017-12-02 15:24 | EMERGENCY ROOM VISIT NOTE ---
History Report prepared by Rolo: Chris Fraser Under the Supervision of: Dr. Wilmer Daniel M.D. First contact with patient: 15:07 Chief Complaint: NAUSEA Stated Complaint: BLURRED VISION, BURNING IN CHEST, NAUSEA History of Present Illness The patient is a 32 year old female who presents to the Emergency Room with complaints of intermittent chest pain that began two days ago. She rates her discomfort as a 7/10 in severity. She describes her pain as a burning sensation. The patient states that a week and a half ago she developed a cough and sore throat. She reports her symptoms were accompanied by rhinorrhea. The patient states that starting two days ago she developed a burning chest pain that has been intermittent since. She reports she has also been experiencing dizziness that is worsened with titling her head to the right. She describes her dizziness as the room spinning. The patient states that the dizziness is still present when her head is still. She reports the dizziness has been accompanied by blurry vision. The patient reports that a pain shooting up her left hand also developed two days ago. She reports she developed a headache two days ago that has been intermittent since. The patient reports that she has been nauseous due to her symptoms. The patient states today her cough became productive. She states "it feels as if I'm choking on mucous". The patient states she took Ibuprofen for her symptoms at 1330 without any relief. The patient denies possible , retaining a tampon, abdominal pain, and a history of a cholecystectomy. She states her LNMP was November 17. The patient reports a history of pleurisy. Source of History: patient Onset: two days ago Position: chest (left) Symptom Intensity: 7/10 Quality: burning Timing: intermittent Modifying Factors (Relieving): ibuprofen Associated Symptoms: + headache, + sorethroat, + cough, + nausea, No abdominal pain Note: Associated symptoms: dizziness, blurry vision, left hand pain, rhinorrhea Review of Systems See HPI for pertinent positives & negatives. A total of 10 systems reviewed and were otherwise negative. Past Medical & Surgical Medical Problems: (1) Bicornuate uterus (2) GERD (gastroesophageal reflux disease) Surgical Problems: (1) H/O wisdom tooth extraction Family History No significant family history Social History Smoking Status: Never Smoker Alcohol Use: occasionally Drug Use: none Marital Status: Housing Status: lives with family Occupation Status: unemployed Current/Historical Medications Scheduled Amoxicillin (Amoxil), 500 MG PO TID Calcium Carbonate (Antacid) (Tums Ultra 1000), 1,000 MG PO PRN Ibuprofen (Advil), 2 TABS PO PRN UD Iron-Vitamin C (Vitron-C), 1 TAB PO TID Scheduled PRN Meclizine Hcl (Meclizine Hcl), 1 TAB PO TID PRN for Dizziness or Vertigo Allergies Coded Allergies: No Known Allergies (Verified , 09/24/17) Physical Exam Vital Signs Date Time Temp Pulse Resp B/P (MAP) Pulse Ox O2 Delivery O2 Flow Rate FiO2 12/02/17 17:29 98 20 100/61 100 12/02/17 17:05 98 20 100/61 100 Room Air 12/02/17 15:41 82 12/02/17 15:39 72 103/65 78 100/66 100 109/72 12/02/17 15:28 99 Room Air 12/02/17 15:28 99 Room Air 12/02/17 15:02 36.6 92 18 118/74 100 Room Air Physical Exam GENERAL: Awake, alert, well-appearing, in no acute distress HENT: Normocephalic, atraumatic. Oropharynx unremarkable. EYES: Normal conjunctiva. Sclera non-icteric. NECK: Supple. No nuchal rigidity. FROM. No JVD. RESPIRATORY: Clear to auscultation. CARDIAC: Regular rate, normal rhythm. Extremities warm and well perfused. Pulses equal. ABDOMEN: Soft, non-distended. No tenderness to palpation. No rebound or guarding. No masses. RECTAL: Deferred. MUSCULOSKELETAL: Left side of chest is tender to palpation. The back is symmetrical on inspection without obvious abnormality. There is no CVA tenderness to palpation. No joint edema. LOWER EXTREMITIES: Calves are equal size bilaterally and non-tender. No edema. No discoloration. NEURO: Normal sensorium. No sensory or motor deficits noted. SKIN: No rash or jaundice noted. Medical Decision & Procedures ER Provider Diagnostic Interpretation: X-ray results as stated below per interpretation by me and the radiologist: CHEST ONE VIEW PORTABLE HISTORY: Short of breath. COMPARISON: Chest 09/25/2017. FINDINGS: The lungs are clear. Cardiac silhouette is normal in size. No pleural effusions. No pneumothorax. IMPRESSION: No acute process. Electronically signed by: Panchito Sims M.D. 12/02/2017 3:52 PM Dictated Date/Time: 12/02/2017 3:49 PM Laboratory Results 12/02/17 15:45 Red Blood Count 4.79, Mean Corpuscular Volume 82.3, Mean Corpuscular Hemoglobin 27.3, Mean Corpuscular Hemoglobin Concent 33.2, Mean Platelet Volume 10.2, Neutrophils (%) (Auto) 68.7, Lymphocytes (%) (Auto) 21.5, Monocytes (%) (Auto) 9.2, Eosinophils (%) (Auto) 0.2, Basophils (%) (Auto) 0.2, Neutrophils # (Auto) 4.32, Lymphocytes # (Auto) 1.35, Monocytes # (Auto) 0.58, Eosinophils # (Auto) 0.01, Basophils # (Auto) 0.01 12/02/17 15:45 Test 12/02/17 15:32 12/02/17 15:40 12/02/17 15:45 12/02/17 16:08 Urine Color YELLOW Urine Appearance TURBID (CLEAR) Urine pH 7.0 (4.5-7.5) Urine Specific Norvell 1.032 (1.000-1.030) Urine Protein NEG (NEG) Urine Glucose (UA) NEG (NEG) Urine Ketones NEG (NEG) Urine Occult Blood NEG (NEG) Urine Nitrite NEG (NEG) Urine Bilirubin NEG (NEG) Urine Urobilinogen NEG (NEG) Urine Leukocyte Esterase NEG (NEG) Urine WBC (Auto) 1-5 /hpf (0-5) Urine RBC (Auto) 5-10 /hpf (0-4) Urine Hyaline Casts (Auto) 1-5 /lpf (0-5) Urine Epithelial Cells (Auto) >30 /lpf (0-5) Urine Bacteria (Auto) NEG (NEG) Urine Test NEG (NEG) Influenza Type A Antigen Neg for Influ A (NEG) Influenza Type B Antigen Neg for Influ B (NEG) White Blood Count 6.28 K/uL (4.8-10.8) Red Blood Count 4.79 M/uL (4.2-5.4) Hemoglobin 13.1 g/dL (12.0-16.0) Hematocrit 39.4 % (37-47) Mean Corpuscular Volume 82.3 fL (80-100) Mean Corpuscular Hemoglobin 27.3 pg (25-34) Mean Corpuscular Hemoglobin Concent 33.2 g/dl (32-36) Platelet Count 332 K/uL (130-400) Mean Platelet Volume 10.2 fL (7.4-10.4) Neutrophils (%) (Auto) 68.7 % Lymphocytes (%) (Auto) 21.5 % Monocytes (%) (Auto) 9.2 % Eosinophils (%) (Auto) 0.2 % Basophils (%) (Auto) 0.2 % Neutrophils # (Auto) 4.32 K/uL (1.4-6.5) Lymphocytes # (Auto) 1.35 K/uL (1.2-3.4) Monocytes # (Auto) 0.58 K/uL (0.11-0.59) Eosinophils # (Auto) 0.01 K/uL (0-0.5) Basophils # (Auto) 0.01 K/uL (0-0.2) RDW Standard Deviation 40.3 fL (36.4-46.3) RDW Coefficient of Variation 13.3 % (11.5-14.5) Immature Granulocyte % (Auto) 0.2 % Immature Granulocyte # (Auto) 0.01 K/uL (0.00-0.02) D-Dimer < 190 ug/L FEU (0-500) Anion Gap 4.0 mmol/L (3-11) Est Creatinine Clear Calc Drug Dose 100.6 ml/min Estimated GFR () 133.8 Estimated GFR (Non- 115.5 BUN/Creatinine Ratio 20.6 (10-20) Calcium Level 9.0 mg/dl (8.5-10.1) Total Bilirubin 0.2 mg/dl (0.2-1) Direct Bilirubin < 0.1 mg/dl (0-0.2) Aspartate Amino Transf (AST/SGOT) 13 U/L (15-37) Alanine Aminotransferase (ALT/SGPT) 27 U/L (12-78) Alkaline Phosphatase 97 U/L (45-117) Total Creatine Kinase 49 U/L (26-192) Creatine Kinase MB 1.2 ng/ml (0.5-3.6) Creatine Kinase MB Ratio 2.4 (0-3.0) Troponin I < 0.015 ng/ml (0-0.045) Total Protein 7.9 gm/dl (6.4-8.2) Albumin 3.7 gm/dl (3.4-5.0) Thyroid Stimulating Hormone (TSH) 1.270 uIu/ml (0.300-4.500) Bedside Glucose 90 mg/dl (70-90) Labs reviewed by ED physician. Medications Administered Medications (Trade) Dose Ordered Sig/Geraldine Route Start Time Stop Time Status Last Admin Dose Admin Sodium Chloride 1,000 ml @ 999 mls/hr Q1H1M STAT IV 12/02/17 15:14 12/02/17 16:14 DC 12/02/17 15:55 999 MLS/HR Acetaminophen (Tylenol Tab) 1,000 mg NOW STAT PO 12/02/17 15:14 12/02/17 15:17 DC 12/02/17 15:53 1,000 MG Prochlorperazine Edisylate (Compazine Inj) 5 mg NOW STAT IV 12/02/17 15:14 12/02/17 15:17 DC 12/02/17 15:52 5 MG Diphenhydramine HCl (Benadryl Inj) 50 mg NOW STAT IV 12/02/17 15:14 12/02/17 15:17 DC 12/02/17 15:51 50 MG Magnesium Sulfate (Magnesium Sulfate 1gm / D5W) 1 gm NOW STAT IV 12/02/17 15:14 12/02/17 15:18 DC 12/02/17 15:51 1 GM Albuterol Sulfate (Ventolin 0.083% 2.5MG/3ML Neb) 2.5 mg NOW STAT INH 12/02/17 15:14 12/02/17 15:18 DC 12/02/17 15:51 2.5 MG Dexamethasone Sodium Phosphate 10 mg/Syringe 2.5 ml @ 1 mls/min NOW STAT IV 12/02/17 16:41 12/02/17 16:43 DC 12/02/17 17:05 1 MLS/MIN Albuterol Sulfate (Ventolin 0.083% 2.5MG/3ML Neb) 2.5 mg NOW STAT INH 12/02/17 16:41 12/02/17 16:43 DC 12/02/17 17:05 2.5 MG Amoxicillin (Amoxil Cap) 500 mg NOW STAT PO 12/02/17 16:41 12/02/17 16:43 DC 12/02/17 17:05 500 MG Potassium Chloride (Klor-Con M10) 40 meq NOW STAT PO 12/02/17 16:43 12/02/17 16:44 DC 12/02/17 17:06 40 MEQ Albuterol (Ventolin Hfa Inhaler) 2 puffs NOW ONCE INH 12/02/17 17:15 12/02/17 17:16 DC 12/02/17 17:21 2 PUFFS ECG Per My Interpretation Indication: chest pain Rate (beats per minute): 75 Rhythm: normal sinus Findings: other (short [place], No ST elevation or depression) ED Course 1507: Past medical records reviewed. The patient was evaluated in room C10. A complete history and physical examination was performed. 1514: Ordered Albuterol Sulfate 2.5 mg INH, Magnesium Sulfate 1 gm IV, Benadryl Injection 50 mg IV, Compazine Injection 5 mg IV, Tylenol Tab 1000 mg PO, Sodium Chloride 1000 ml @ 999 mls/hr IV. 1641: Ordered Amoxicillin 500 mg PO, Albuterol Sulfate 2.5 mg INH. 1643: Ordered Potassium Chloride 40 meq PO. 1645: I reevaluated the patient and she is feeling better. I discussed the results and treatment plan, which she understands. The patient is ready for discharge. 1658: Ordered Dexamethasone Sodium Phosphate 10 mg IV. 1715: Ordered Albuterol 2 puffs INH. Medical Decision Prior records/ancillary studies reviewed. Triage Nursing notes reviewed. The patient's history was concerning for chest pain. Differential diagnosis: Etiologies such as cardiac ischemia, aortic dissection, pulmonary embolism, pneumonia, pneumothorax, musculoskeletal, infections, pericarditis, myocarditis , esophageal rupture, gastrointestinal, as well as others were entertained. This is a 32-year-old female who presents to the emergency department complaining of multiple complaints. Patient is complaining of a headache, chest pain, coughing up mucus as well as what appears to be vertigo when she turns her head to the right. Based on these findings and using shared medical decision making with the patient I recommended a chest x-ray, cardiac enzymes, EKG as well as a d-dimer. The patient's d-dimer is normal she also does not have an elevation in her cardiac enzymes. She was given Tylenol in the emergency department along with Compazine Benadryl albuterol breathing treatments. Repeat examination revealed much improvement in the patient's symptoms. I suspect that the patient is suffering from bronchitis-like picture and developed vertigo as a result. The patient notes she has had vertigo in the past when she has an ear infection. Her ears are clear on examination but using shared medical decision making, the patient wishes to start an antibiotic. I will place her on albuterol inhaler to use twice every 6 hours. She was also given a shot of Decadron here in the emergency department. She was also given a prescription for meclizine for the vertigo. Patient was in agreement with the treatment plan. Medication Reconcilliation Current Medication List: was personally reviewed by me Blood Pressure Screening Patient's blood pressure: Normal blood pressure Impression Primary Impression: Bronchitis Additional Impression: Vertigo Scribe Attestation The scribe's documentation has been prepared under my direction and personally reviewed by me in its entirety. I confirm that the note above accurately reflects all work, treatment, procedures, and medical decision making performed by me. Departure Information Dispostion Home / Self-Care Prescriptions Amoxicillin (AMOXIL) 500 Mg Cap 500 MG PO TID, #30 CAP Prov: Wilmer Daniel MD 12/02/17 Meclizine Hcl (MECLIZINE HCL) 25 Mg Tab 1 TAB PO TID Y for Dizziness or Vertigo for 10 Days, #30 TAB Prov: Wilmer Daniel MD 12/02/17 Referrals Monse BAIRD M.D. (PCP) Forms HOME CARE DOCUMENTATION FORM, IMPORTANT VISIT INFORMATION Patient Instructions ED BPV Vertigo, ED Bronchitis Asthmatic, Headache Pain, My [facility] Additional Instructions Use inhaler twice every 6 hours You have been examined and treated today on an emergency basis only. This is not a substitute for, or an effort to provide, complete comprehensive medical care. It is impossible to recognize and treat all injuries or illnesses in a single emergency department visit. It is therefore important that you follow up closely with Dr Baird. Call as soon as possible for an appointment. Thank you for your time and consideration. I look forward to speaking with you again soon. Please don't hesitate to call us if you have any questions. Problem Qualifiers
[2017-12-02 15:28] VITALS: O2SAT 99
[2017-12-02] MEDS ORDERED: FERRTAB18 PO (15:38)
[2017-12-02] MEDS ORDERED: CALCCHW17 PO (15:38)
[2017-12-02] MEDS ORDERED: IBUP-1050 PO (15:38)
[2017-12-02 15:40] VITALS: Ht 162.6 cm; Wt 57.3 kg
--- NOTE | 2017-12-02 15:54 | DIAGNOSTIC IMAGING REPORT ---
CHEST ONE VIEW PORTABLE HISTORY: Short of breath. COMPARISON: Chest 09/25/2017. FINDINGS: The lungs are clear. Cardiac silhouette is normal in size. No pleural effusions. No pneumothorax. IMPRESSION: No acute process. Electronically signed by: Panchito Sims M.D. 12/02/2017 3:52 PM Dictated Date/Time: 12/02/2017 3:49 PM
[2017-12-02 16:21] LABS: BASO % 0.2 %; BASO ABS # 0.01 K/uL (0-0.2); EOS % 0.2 %; EOS ABS # 0.01 K/uL (0-0.5); HEMATOCRIT 39.4 % (37-47); HEMOGLOBIN 13.1 g/dL (12.0-16.0); IG# 0.01 K/uL (0.00-0.02); LYMPH % 21.5 %; LYMPH ABS # 1.35 K/uL (1.2-3.4); MEAN CELL VOLUME 82.3 fL (80-100); MEAN CORPUSCULAR HEMOGLOBIN 27.3 pg (25-34); MEAN CORPUSCULAR HGB CONC 33.2 g/dl (32-36); MEAN PLATELET VOLUME 10.2 fL (7.4-10.4); MONO % 9.2 %; MONO ABS # 0.58 K/uL (0.11-0.59); NEUT % 68.7 %; NEUT ABS # 4.32 K/uL (1.4-6.5); PLATELET COUNT 332 K/uL (130-400); RED CELL DISTRIBUTION WIDTH CV 13.3 % (11.5-14.5); RED CELL DISTRIBUTION WIDTH SD 40.3 fL (36.4-46.3); WHITE BLOOD COUNT 6.28 K/uL (4.8-10.8)
[2017-12-02 16:38] LABS: ALBUMIN 3.7 gm/dl (3.4-5.0); ALT/SGPT 27 U/L (12-78); AST/SGOT 13 U/L (15-37); BLOOD UREA NITROGEN 14 mg/dl (7-18); CARBON DIOXIDE 32 mmol/L (21-32); GLUCOSE 96 mg/dl (70-99); POTASSIUM 3.2 mmol/L (3.5-5.1); SODIUM 140 mmol/L (136-145)
[2017-12-02] MEDS ORDERED: DEXAMETHASONE INJ 10 MG in SYRINGE 0 ML IV STA (16:41)
[2017-12-02] MEDS ORDERED: AMOXICILLIN 250 MG CAP PO STA (16:41)
[2017-12-02 16:43] LABS: INFLUENZA B ANTIGEN Neg for Influ B (NEG)
[2017-12-02] MEDS ORDERED: POTASSIUM CHLORIDE 10 MEQ TABCR PO STA (16:43)
[2017-12-02 16:49] LABS: ALKALINE PHOSPHATASE 97 U/L (45-117); CKMB 1.2 ng/ml (0.5-3.6); TOTAL PROTEIN 7.9 gm/dl (6.4-8.2)
[2017-12-02] MEDS ORDERED: DEXAMETHASONE **PF** INJ 10 MG/ML VIAL ONE (16:58)
[2017-12-02] MEDS ORDERED: MECL1TAB42 PO (17:03)
[2017-12-02] MEDS ORDERED: AMOX500C3 PO (17:03)
[2017-12-02] MEDS ORDERED: ALBUTEROL HFA 8 GM INHALER INH ONE (17:15)
[2017-12-02 17:29] VITALS: BP 100/61; PULSE 98; O2SAT 100
== END 2017-12-02 17:25 | disposition home or self-care (01) ==
LOC: C.EDB 14:56 → C.EDC 17:25
DX: J40 Bronchitis, not specified as acute or chronic (principal); R42 Dizziness and giddiness

== ENCOUNTER 2020-02-20 07:29 | Inpatient (IN) ==
[2020-02-20] MEDS ORDERED: OXYTOCIN 30 UNITS/500 ML BAG IV PRN ×2 (08:34→09:14)
[2020-02-20 08:56] LABS: Hematocrit (blood only) 33.9 % (37-47); Hemoglobin 11.1 g/dL (12.0-16.0); Mean Corpuscular Hemoglobin 28.7 pg (25-34); Mean Corpuscular Volume 87.6 fL (80-100); Mean Platelet Volume 10.4 fL (7.4-10.4); Platelet Count 315 K/uL (130-400); RDW Coefficient of Variation 14.1 % (11.5-14.5); RDW Standard Deviation 45.1 fL (36.4-46.3); Red Blood Count 3.87 M/uL (4.2-5.4); White Blood Count 6.56 K/uL (4.8-10.8)
[2020-02-20 08:58] LABS: Mean Corpuscular Hgb Conc 32.7 g/dL (32-36)
--- NOTE | 2020-02-20 09:05 | History & Physical Report ---
Date of Service February 20, 2020 Assessment & Plan (1) Elective induction of labor planned: Janay is a 35 y/o female currently at 39 WGA with an MIROSLAVA 02/27/20 as determined by LMP who is here for a patient-requested induction of . Her has only been complicated by insulin-dependent GDM and a history of ICP in her previous , not having met criteria for diagnosis throughout the current . - Patient-requested IOL -- will continue with Pitocin protocol - AROM was performed - Anticipate - Patient requests epidural -- anesthesia will be consulted - LFTs and total bile acids have remained below the diagnostic threshold for ICP throughout this -- orders placed to recheck levels during intrapartum period Blood Type: B+ GBS: negative Rubella immune History of Present Illness Primary Care Provider: Monse Dang MD Janay is a 35 y/o female currently at 39 WGA with an MIROSLAVA 02/27/20 as determined by LMP who is here for a patient-requested induction of . Her has only been complicated by insulin-dependent GDM. Her last was complicated by ICP -- she has not met criteria throughout this . Has had LFTs and bile acid levels tested q 2 weeks since 20 WGA. Denies contractions; good movement; endorses fluid loss in the setting of AROM, but not before; denies bloody show External FHT and external uterine monitors used; Category I tracing; +FHT variability. Had regular appointments with OB. Labs: (07/31/19) Blood type: B+ Antibody screen: neg H.1 (today) Hct: 33.9 (today) WBC: 6.56 (today) Plt: 315 (today) Rubella: immune VDRL/RPR: neg Gonorrhea: neg Chlamydia: neg HIV: neg GBS: neg HbSAg: neg Hep C: neg Allergies Allergy/AdvReac Type Severity Reaction Status Date / Time No Known Allergies Allergy Verified 02/19/20 10:31 Home Medications Home Medications Medication Instructions Recorded Confirmed Type ferrous sulfate PO 08/21/19 02/19/20 History prenat.vits,zachary,bcl-qjax-kdsiy PO 08/21/19 02/19/20 History diphenhydramine HCl 25 mg capsule 25 mg PO Q6H PRN 12/04/19 02/19/20 History hydrocortisone 1 % topical cream 1 appln TOP TID PRN 12/04/19 02/19/20 History acetone (urine) test #50 12/08/19 02/19/20 Rx blood sugar diagnostic #150 12/08/19 02/19/20 Rx blood-glucose meter #1 12/08/19 02/19/20 Rx lancets 33 gauge #150 12/08/19 02/19/20 Rx Patient History Medical History (Updated 02/20/20 @ 09:09 by Johnny Woodson MD) Acute kidney failure following labor and delivery 2017. NO PROBLEMS CURRENTLY. Bicornuate uterus (Chronic) Bronchitis H/O Encounter for pre-operative examination GERD (gastroesophageal reflux disease) (Chronic) DURING . NO PROBLEMS CURRENTLY Group beta Strep positive History of chicken pox Left sided chest pain (Inactive) Miscarriage Pleurisy (Chronic) H/O Retained intrauterine device (IUD) during Surgical History H/O wisdom tooth extraction (Resolved) History of dilatation and curettage X3 D&E Social History Smoking Status: Never smoker Second Hand Exposure: No; Hx Alcohol Use: No Hx Substance Use: No Preferred Language: Uruguayan Communication Ability: Effective Maid Cleaning Cooking Required: No Beliefs That Will Affect Care: None marital status: marital status details: Chuy Moe (34) [phone] Current Living Situation: Spouse Current Living Situation Comment: lives with spouse, 5 children, no pets current occupational status: unemployed current occupation: homemaker Other Information That Helps Us Care for You: No Feels Safe at Home: Yes Safety Concerns: Feels Safe At This Time Review of Systems no fever, no chills and no sweats denies headache, changes in vision no dyspnea no chest pain, no dyspnea, no dyspnea at rest and no palpitations no dysuria no breast pain Physical Exam Physical Exam: General: Alert, oriented. No acute distress. No jaundice or scleral icterus. Cardiac: Regular rate and rhythm, no murmurs/rubs/gallops. Respiratory: Clear to auscultation bilaterally a/p, no wheezes/rales/rhonchi. No increased work of breathing. Symmetrical chest rise. No respiratory distress. Pelvic: Dilation 3 cm; Effacement 75%; Station -[address] Chase. Lower Extremities: No lower extremity edema or swelling. No deep calf pain. Faby's negative bilaterally Results & Data Vital Signs (Past 12 Hours) Vital Signs Temp Resp 02/20/20 07:46 36.7 C 20 Code Status & VTE Plan VTE Prophylaxis Plan VTE Prophylaxis will be ordered: Yes Resident Activity Tracking Resident Involvement: Resident Care Provided Care Provided: Adult Hospital Medicine and OB Delivery
[2020-02-20 09:12] LABS: Alanine Aminotransferase 17 U/L (12-78); Albumin Level 2.5 gm/dl (3.4-5.0); Aspartate Aminotransferase 13 U/L (15-37); BUN Creatinine Ratio 16.2 (10-20); Bilirubin Direct < 0.1 mg/dl (0-0.2); Blood Urea Nitrogen 11 mg/dl (7-18); Calcium 8.6 mg/dl (8.5-10.1); Carbon Dioxide 24 mmol/L (21-32); Chloride 107 mmol/L (98-107); Creatinine Clr Calc Pharmacy 110.7 ml/min; Est GFR (African American) 132.9; Est GFR (Non-African American) 114.7; Glucose 78 mg/dl (70-99); Potassium 3.8 mmol/L (3.5-5.1); Sodium 137 mmol/L (136-145)
[2020-02-20 09:15] LABS: Albumin Globulin Ratio 0.6 (0.9-2); Alkaline Phosphatase 133 U/L (45-117); Bilirubin,Total 0.2 mg/dl (0.2-1); Globulin 4.3 gm/dl (2.5-4.0); Total Protein 6.8 gm/dl (6.4-8.2)
[2020-02-20] MEDS: LACTATED RINGER'S 1,000 ML IV PRN ×4 (09:35→18:19)
[2020-02-20] MEDS ORDERED: BUPIVACAINE 0.25% 30 ML VIAL ONE (11:59)
[2020-02-20] MEDS ORDERED: ePHEDrine sulfate 50 MG/ML AMP ONE (11:59)
[2020-02-20] MEDS ORDERED: fentaNYL citrate 100 MCG/2 ML VIAL ONE (12:00)
[2020-02-20] MEDS ORDERED: fentaNYL 2MCG/ML ROPIV 1.25MG/ML 100 ML BAG EPI ONE (12:01)
--- NOTE | 2020-02-20 12:08 | Anesthesiology Consultation ---
Date of Service February 20, 2020 Assessment & Plan ASA ASA2 Proposed Anesthesia Anesthesia Type: Labor Epidural Risk / Benefits Reviewed With: PT / POA / Parent / Guardian, Accepts Plan and Informed Consent Obtained History Height/Weight Height: 5 ft 4 in Weight: 66.075 kg Allergies Allergy/AdvReac Type Severity Reaction Status Date / Time No Known Allergies Allergy Verified 02/19/20 10:31 Medications Home Medications Medication Instructions Recorded Confirmed Last Taken acetone (urine) test #50 12/08/19 02/19/20 Unknown blood sugar diagnostic #150 12/08/19 02/19/20 Unknown blood-glucose meter #1 12/08/19 02/19/20 Unknown lancets 33 gauge #150 12/08/19 02/19/20 Unknown ferrous sulfate [Iron (ferrous 325 mg PO DAILY 02/20/20 02/20/20 02/19/20 08:00 sulfate)] vit-iron fum-folic ac 1 tab PO DAILY 02/20/20 02/20/20 02/19/20 08:00 [ Vitamin] Active Medications Generic Name Dose Route Start Last Admin Trade Name Freq PRN Reason Stop Dose Admin Lactated Ringer's 1,000 mls @ 125 mls/hr 02/20/20 08:34 02/20/20 12:35 Lr IV 02/22/20 08:33 125 mls/hr .Q8H PRN Administration L&D Protocol Protocol Oxytocin 30 units in 500 mls @ 7 mls/hr 02/20/20 09:14 02/20/20 11:53 Pitocin IV 02/22/20 09:13 0.42 units/hr .Q24H PRN 7 mls/hr Labor Induction/Augmentation Titration Protocol 0.42 UNITS/HR Past Medical History Medical History Acute kidney failure following labor and delivery 2016. NO PROBLEMS CURRENTLY. Bicornuate uterus (Chronic) Bronchitis H/O Encounter for pre-operative examination GERD (gastroesophageal reflux disease) (Chronic) DURING . NO PROBLEMS CURRENTLY Group beta Strep positive History of chicken pox Left sided chest pain (Inactive) Miscarriage Pleurisy (Chronic) H/O Retained intrauterine device (IUD) during Exercise / Class Metabolic Activity II 4-5 Yardwork/Stairs/Walk up hill Past Family History Family History Grandfather (Maternal) FHx: brain cancer Family/Other FHx: skin cancer Mother History of thyroid disorder Dyslipidemia Hypertension Hepatitis A Father Dyslipidemia Hypertension Denies family history of Ovarian cancer Breast cancer Colorectal cancer Past Surgical History Surgical History H/O wisdom tooth extraction (Resolved) History of dilatation and curettage X3 D&E Past Anesthesia History No Hx of Anesthesia Complications and No Family Hx of Anesthesia Complications History of PONV No Hx of PONV and No Hx of Motion Sickness Social History Smoking Status: Never smoker Hx Alcohol Use: No Hx Substance Use: No substance use type: does not use Review of Systems denies fever/cough/ colds/ chest pain/ SOB/ KODY Constitutional: no fever and no chills Respiratory: no cough and no dyspnea denies KODY Cardiovascular: no chest pain and no dyspnea on exertion Physical Exam Vital Signs Last Vital Signs Temp 36.7 C 02/20/20 07:46 Pulse 86 02/20/20 12:54 Resp 20 02/20/20 07:46 BP 111/61 02/20/20 12:54 Pulse Ox 100 02/20/20 12:51 ENMT Mouth: no TMJ abnormality and no dentition abnormality Thyromental Distance: > or= 3.5 Finger Breadths Mallampati Class: II Neck neck extension not limited Respiratory normal respiratory effort; no respiratory distress Auscultation: lungs clear to auscultation bilaterally Cardiovascular Rate/Rhythm: regular rate and regular rhythm Neurologic moves all extremities Psychiatric Orientation: alert and oriented x 3 Testing Laboratory Results 02/20/20 08:46 02/20/20 08:46 02/20/20 02/20/20 11:19 10:21 POC Glucose 72 73
[2020-02-20] MEDS ORDERED: NALOXONE HCL 1 MG in SODIUM CHLORIDE 0.9% 1000ML 1,000 ML IV PRN (12:54)
[2020-02-20] MEDS ORDERED: ONDANSETRON INJ 2 MG/ML 2 ML VIAL IV PRN (12:54)
[2020-02-20] MEDS ORDERED: ePHEDrine sulfate 50 MG/ML AMP IV PRN (12:54)
[2020-02-20] MEDS ORDERED: NALOXONE HCL 0.4 MG/1 ML VIAL/CARP IV PRN (12:54)
[2020-02-20] MEDS ORDERED: DiphenhydrAMINE HCL 50 MG/ML VIAL IV PRN (12:54)
[2020-02-20] MEDS ORDERED: fentaNYL 2MCG/ML ROPIV 1.25MG/ML 100 ML BAG EPI PRN (12:54)
--- NOTE | 2020-02-20 19:23 | Delivery Summary ---
Vaginal Delivery Summary Date of Service February 20, 2020 Vaginal Delivery Summary DIAGNOSES: 1. Huertas intrauterine at 39wk gestation. 2. Spontaneous onset of labor. 3. Group B Streptococcus Neg. PROCEDURE: Spontaneous vaginal delivery without laceration. SURGEON: Hannah Chase MD. CLAMSHELL OPERATOR: None. ESTIMATED BLOOD LOSS: 350 mL. COMPLICATIONS: None. PLACENTA: Spontaneous and intact with a 3-vessel cord. DISPOSITION: Stable to labor and delivery. DESCRIPTION: The patient pushed well and brought the head to in OA position. The infant's head was allowed to deliver with contraction force and no further active pushing, with the perineum protected during this time. The shoulders delivered easily with a maternal pushing effort. There was no nuchal cord. The right shoulder was anterior. The shoulders and body delivered without any difficulty, and the was placed on the maternal abdomen. It was vigorous and moving all extremities, and making respiratory efforts. The cord was doubly clamped by the MD and then cut by the FOB. The placenta delivered spontaneously and was noted to be intact and with a 3VC. The cervix, vagina and perineum were examined and were found to be without defect requiring repair. The fundus was firm and lochia minimal immediately after delivery.
[2020-02-20] MEDS ORDERED: BENZOCAINE 20% AER SPR 82.5 GM CAN EXT PRN (19:33)
[2020-02-20] MEDS ORDERED: HYDROCORTISONE ACETATE 25 MG SUPP PR PRN (19:33)
[2020-02-20] MEDS ORDERED: MEASLES, MUMPS & RUBELLA VIRUS VIAL SQ ONE (19:33)
[2020-02-20] MEDS ORDERED: ACETAMINOPHEN 325 MG TAB PO PRN (19:33)
[2020-02-20] MEDS ORDERED: DIPHTHERIA/TETANUS/PERTUSSIS 0.5 ML SYR/VIAL IM ONE (19:33)
[2020-02-20] MEDS ORDERED: OXYCODONE/ACETAMINOPHEN 5mg/325mg TAB PO PRN (19:33)
[2020-02-20] MEDS ORDERED: SUPERCREAM 0.870% 15 GM JAR EXT PRN (19:33)
--- NOTE | 2020-02-20 19:39 | Anesthesiology Progress Note ---
Date of Service February 20, 2020 Anesthesia Post Procedure Vital Signs Vital Signs: Temp Pulse Resp BP Pulse Ox 02/20/20 19:35 109 H 18 119/65 02/20/20 19:21 88 98 02/20/20 19:20 88 18 113/56 L 98 02/20/20 19:16 84 96 02/20/20 19:11 91 H 96 02/20/20 19:06 133 H 99 02/20/20 19:05 114 H 114/69 02/20/20 19:01 92 H 98 02/20/20 19:00 18 02/20/20 18:56 105 H 98 02/20/20 18:51 91 H 106/59 L 97 02/20/20 18:46 88 98 02/20/20 18:41 86 96 02/20/20 18:36 88 97 02/20/20 18:35 82 104/58 L 02/20/20 18:31 90 96 02/20/20 18:30 18 02/20/20 18:26 104 H 97 02/20/20 18:21 87 98 02/20/20 18:19 81 101/55 L 02/20/20 18:16 90 97 02/20/20 18:11 82 96 02/20/20 18:06 81 97 02/20/20 18:04 82 101/58 L 02/20/20 18:01 81 96 02/20/20 18:00 18 02/20/20 17:56 77 97 02/20/20 17:51 74 97 02/20/20 17:50 90 103/58 L 02/20/20 17:46 85 97 02/20/20 17:41 84 96 02/20/20 17:36 79 97 02/20/20 17:34 93 H 102/55 L 02/20/20 17:31 85 97 02/20/20 17:30 18 02/20/20 17:26 80 96 02/20/20 17:21 82 97 02/20/20 17:19 82 101/55 L 02/20/20 17:16 82 97 02/20/20 17:13 36.9 C 02/20/20 17:11 76 96 02/20/20 17:06 77 98 02/20/20 17:05 76 98/57 L 02/20/20 17:01 71 97 02/20/20 17:00 18 02/20/20 16:56 77 97 02/20/20 16:51 84 98 02/20/20 16:50 80 100/58 L 02/20/20 16:46 76 97 02/20/20 16:41 78 97 02/20/20 16:36 78 101/58 L 96 02/20/20 16:31 89 96 02/20/20 16:30 18 02/20/20 16:26 81 99 02/20/20 16:21 88 116/60 98 02/20/20 16:16 92 H 98 02/20/20 16:15 99 H 89 L 02/20/20 16:11 88 99 02/20/20 16:06 85 100 02/20/20 16:05 81 105/58 L 02/20/20 16:01 85 97 02/20/20 16:00 18 02/20/20 15:56 75 97 02/20/20 15:51 86 98 02/20/20 15:49 84 102/55 L 02/20/20 15:46 97 H 97 02/20/20 15:41 78 97 02/20/20 15:36 80 97 02/20/20 15:35 79 97/53 L 02/20/20 15:31 72 97 02/20/20 15:30 18 02/20/20 15:26 78 98 02/20/20 15:21 82 97 02/20/20 15:20 72 97/53 L 02/20/20 15:16 73 98 02/20/20 15:11 80 100 02/20/20 15:06 36.8 C 79 18 98 02/20/20 15:05 74 103/56 L 02/20/20 15:01 77 100 02/20/20 14:56 74 97 02/20/20 14:51 72 100 02/20/20 14:50 83 99/56 L 02/20/20 14:47 75 105/57 L 02/20/20 14:46 73 99 02/20/20 14:41 72 99 02/20/20 14:39 36.7 C 20 02/20/20 14:36 69 99 02/20/20 14:35 70 89/51 L 02/20/20 14:31 69 100 02/20/20 14:26 75 99 02/20/20 14:23 73 93/51 L 02/20/20 14:21 70 99 02/20/20 14:16 77 100 02/20/20 14:11 78 100 02/20/20 14:06 75 100 02/20/20 14:05 68 99/54 L 02/20/20 14:01 69 98 02/20/20 13:56 69 100 02/20/20 13:51 80 99 02/20/20 13:50 83 93/52 L 02/20/20 13:46 82 100 02/20/20 13:41 72 100 02/20/20 13:36 71 100 02/20/20 13:34 36.7 C 77 20 100/55 L 02/20/20 13:31 71 100 02/20/20 13:29 64 102/56 L 02/20/20 13:26 70 100 02/20/20 13:24 75 105/58 L 02/20/20 13:21 72 100 02/20/20 13:19 70 105/59 L 02/20/20 13:16 84 100 02/20/20 13:14 90 103/60 02/20/20 13:11 77 107/58 L 100 02/20/20 13:06 76 100 02/20/20 13:04 75 102/57 L 02/20/20 13:01 73 100 02/20/20 12:59 80 103/60 02/20/20 12:56 70 100 02/20/20 12:54 86 111/61 02/20/20 12:52 90 110/65 02/20/20 12:51 84 100 02/20/20 12:50 81 108/68 02/20/20 12:48 74 107/58 L 02/20/20 12:46 68 97/53 L 100 02/20/20 12:44 76 104/65 02/20/20 12:42 98 H 103/61 02/20/20 12:41 100 H 100 02/20/20 12:40 88 99/54 L 02/20/20 12:38 82 108/61 02/20/20 12:36 101 H 103/60 99 02/20/20 12:34 71 102/56 L 02/20/20 12:32 86 104/59 L 02/20/20 12:31 89 100 02/20/20 12:30 80 102/58 L 02/20/20 12:28 75 101/57 L 02/20/20 12:26 70 104/57 L 100 02/20/20 12:21 80 100 02/20/20 12:16 85 100 02/20/20 11:54 77 118/78 02/20/20 11:39 36.6 C 20 02/20/20 10:23 83 100/61 02/20/20 09:42 36.7 C 85 20 112/78 02/20/20 07:46 36.7 C 20 Transfer of Care Handoff Completed per policy Notes Mental Status: alert / awake / arousable and participated in evaluation Patient Amnestic to Procedure: Yes Nausea / Vomiting: adequately controlled Pain: adequately controlled Airway Patency, RR, SpO2: stable & adequate BP & HR: stable & adequate Hydration State: stable & adequate Anesthetic Complications: no major complications apparent and Pt Satisfied with anesthetic care
[2020-02-20] MEDS ORDERED: DOCUSATE SODIUM 100 MG CAP PO SCH (21:00)
[2020-02-21] MEDS: IBUPROFEN 600 MG TAB PO PRN ×2 (02:52→11:21)
--- NOTE | 2020-02-21 05:13 | Obstetrical Progress Note ---
Date of Service <Johnny Woodson MD - Last Filed: 02/21/20 06:16> February 21, 2020 Assessment & Plan <Johnny Woodson MD - Last Filed: 02/21/20 06:16> (1) Elective induction of labor planned: Janay is a 35 y/o female currently at 39 WGA with an MIROSLAVA 02/27/20 as determined by LMP who is here for a patient-requested induction of . Her has only been complicated by insulin-dependent GDM and a history of IC P in her previous , not having met criteria for diagnosis throughout the current . - s/p IOL and subsequent without complication - Feels well today. Eating well, voiding well, ambulating well. - Pain well controlled with ibuprofen 600mg Q4H PRN. - Routine PPD care - OOB, ambulation, diet as tolerated - anticipate d/c today pending peds approval Subjective <Johnny Woodson MD - Last Filed: 02/21/20 06:16> Janay is a 35 y/o female who is now PPD #1 following elective IOP and subsequent without complication at 39 weeks. Reports feeling well overall this morning. Some abdominal cramping with pain well managed on analgesics. Voiding appropriately. Tolerating meals overnight and able to ambulate some. Not yet passing gas and denies bowel movements. Some persistent lochia with some improvement this morning. Breast feeding without difficulty. Review of Systems Denies fever, chills, sweats Denies shortness of breath, difficulty breathing, chest pain, palpitations, chest pressure. Denies breast pain. Denies dysuria. Denies headache. Physical Exam <Johnny Woodson MD - Last Filed: 02/21/20 06:16> General: Alert, oriented. No acute distress. Cardiac: Regular rate and rhythm, no murmurs/rubs/gallops. Respiratory: Clear to auscultation bilaterally a/p, no wheezes/rales/rhonchi. No increased work of breathing. Symmetrical chest rise. No respiratory distress. Abdomen: Soft, nontender, nondistended. Bowel sounds present. Uterus: Uterine fundus firm, palpable 1 cm below umbilicus. Lower Extremities: No lower extremity edema or swelling. No deep calf pain. Faby's negative bilaterally. Results & Data <Johnny Woodson MD - Last Filed: 02/21/20 06:16> Vital Signs (Past 12 Hours) Vital Signs Temp Pulse Pulse Resp BP BP Pulse Ox 02/21/20 04:15 36.5 C 64 18 94/61 L 98 02/20/20 23:15 36.8 C 68 20 97/61 L 97 02/20/20 22:31 78 100/54 L 02/20/20 22:30 78 20 100/54 L 02/20/20 22:20 86 102/59 L 02/20/20 22:05 72 104/59 L 02/20/20 21:50 81 99/54 L 02/20/20 21:34 86 97/56 L 02/20/20 21:21 83 97/54 L 02/20/20 21:20 83 18 97/54 L 02/20/20 21:04 94 H 99/58 L 02/20/20 20:50 86 18 110/59 L 02/20/20 20:49 102 H 107/61 02/20/20 20:35 86 110/59 L 02/20/20 20:20 89 18 100/62 02/20/20 20:05 81 20 97/63 L 02/20/20 19:52 84 106/64 02/20/20 19:50 84 18 106/64 02/20/20 19:35 109 H 18 119/65 02/20/20 19:21 88 98 02/20/20 19:20 88 18 113/56 L 98 02/20/20 19:16 84 96 02/20/20 19:11 91 H 96 02/20/20 19:06 133 H 99 02/20/20 19:05 114 H 114/69 02/20/20 19:01 92 H 98 02/20/20 19:00 18 02/20/20 18:56 105 H 98 02/20/20 18:51 91 H 106/59 L 97 02/20/20 18:46 88 98 02/20/20 18:41 86 96 02/20/20 18:36 88 97 02/20/20 18:35 82 104/58 L 02/20/20 18:31 90 96 02/20/20 18:30 18 02/20/20 18:26 104 H 97 02/20/20 18:21 87 98 02/20/20 18:19 81 101/55 L 02/20/20 18:16 90 97 02/20/20 18:11 82 96 02/20/20 18:06 81 97 02/20/20 18:04 82 101/58 L 02/20/20 18:01 81 96 02/20/20 18:00 18 02/20/20 17:56 77 97 02/20/20 17:51 74 97 02/20/20 17:50 90 103/58 L 02/20/20 17:46 85 97 02/20/20 17:41 84 96 02/20/20 17:36 79 97 02/20/20 17:34 93 H 102/55 L 02/20/20 17:31 85 97 02/20/20 17:30 18 02/20/20 17:26 80 96 02/20/20 17:21 82 97 02/20/20 17:19 82 101/55 L 02/20/20 17:16 82 97 02/20/20 17:13 36.9 C <Hannah Chase MD - Last Filed: 02/21/20 07:49> Co-Signing Physician Notes I have reviewed the resident's note and examined the patient myself, and agree with the note above. Resident Activity Tracking <Johnny Woodson MD - Last Filed: 02/21/20 06:16> Resident Involvement: Resident Care Provided Care Provided: Adult Hospital Medicine and OB Delivery
[2020-02-21 06:46] LABS: Hematocrit (blood only) 31.4 % (37-47); Hemoglobin 10.2 g/dL (12.0-16.0); Mean Corpuscular Hemoglobin 28.2 pg (25-34); Mean Corpuscular Hgb Conc 32.5 g/dL (32-36); Mean Corpuscular Volume 86.7 fL (80-100); Mean Platelet Volume 10.6 fL (7.4-10.4); Platelet Count 296 K/uL (130-400); RDW Coefficient of Variation 14.2 % (11.5-14.5); RDW Standard Deviation 44.9 fL (36.4-46.3); Red Blood Count 3.62 M/uL (4.2-5.4); White Blood Count 8.41 K/uL (4.8-10.8)
[2020-02-21] MEDS ORDERED: PRENATAL VITAMIN 1 TAB PO SCH (08:00)
[2020-02-21] MEDS ORDERED: NON-FORMULARY MEDICATION (Breast Pump 1 UNITS) XX ONE ×2 (17:54→17:56)
== END 2020-02-21 20:00 | disposition home or self-care (01) | DRG 807 ==
LOC: 4S1 07:29 → 4S2 23:05

== ENCOUNTER 2024-05-07 07:35 | Inpatient (IN) ==
[2024-05-07] MEDS ORDERED: OXYTOCIN 30 UNITS/NSS 30 UNITS/500 ML BAG IV PRN (07:55)
[2024-05-07] MEDS ORDERED: LIDOCAINE 1% LOCAL 20 ML VIAL INFIL PRN (07:55)
[2024-05-07 08:32] LABS: Hemoglobin 11.1 g/dl (12.0-16.0); Mean Corpuscular Hemoglobin 27.8 pg (25.0-34.0); Mean Corpuscular Hgb Conc 32.6 g/dL (32.0-36.0); Mean Platelet Volume 10.9 fL (9.4-12.4); Platelet Count 329 K/uL (130-400); RDW Coefficient of Variation 16.1 % (11.5-14.5); RDW Standard Deviation 49.5 fL (36.4-46.3)
[2024-05-07] MEDS: LACTATED RINGER'S 1,000 ML IV PRN (09:36)
[2024-05-07] MEDS: OXYTOCIN 30 UNITS/NSS 30 UNITS/500 ML BAG IV PRN (09:37)
[2024-05-07] MEDS ORDERED: ePHEDrine sulfate 50 MG/ML AMP IV PRN (13:21)
[2024-05-07] MEDS ORDERED: fentaNYL citrate PF 100 MCG/2 ML VIAL EPI PRN (13:21)
[2024-05-07] MEDS ORDERED: NALOXONE HCL 0.4 MG/1 ML VIAL/CARP IV PRN (13:21)
[2024-05-07] MEDS ORDERED: PROMETHAZINE 6.25 MG/50.25 ML BAG IV PRN (13:21)
[2024-05-07] MEDS ORDERED: NALBUPHINE HCL INJ 10 MG/ML AMP IV PRN (13:21)
[2024-05-07] MEDS ORDERED: BUPIVACAINE 0.25% PF 30 ML VIAL EPI PRN (13:21)
[2024-05-07] MEDS ORDERED: NALOXONE HCL 1 MG in SODIUM CHLORIDE 0.9% 1,000 ML IV PRN (13:21)
[2024-05-07] MEDS ORDERED: diphenhydrAMINE 50 MG/ML VIAL IV PRN (13:21)
[2024-05-07] MEDS ORDERED: SODIUM CHLORIDE 0.9% PF INJ 10 ML VIAL EPI PRN (13:21)
[2024-05-07] MEDS ORDERED: ROPIVACAINE 0.5% PF 5 MG/ML 20 ML VIAL EPI PRN (13:21)
[2024-05-07] MEDS ORDERED: LIDOCAINE 2% MPF LOCAL 5 ML VIAL EPI PRN (13:21)
--- NOTE | 2024-05-07 13:23 | Anesthesiology Consultation ---
Date of Service May 07, 2024 Assessment & Plan Chart Review Chart Review: Patient NOT seen in Pre Admission Testing and Acceptable Risk for Labor Epidural Consults Requested none ASA ASA2 Proposed Anesthesia Anesthesia Type: Labor Epidural Risk / Benefits Reviewed With: PT / POA / Parent / Guardian, Accepts Plan and Informed Consent Obtained History Height/Weight Height: 5 ft 4 in Weight: 72.91 kg Allergies Allergy/AdvReac Type Severity Reaction Status Date / Time No Known Allergies Allergy Verified 05/06/24 11:08 Medications Home Medications Medication Instructions Recorded Confirmed Last Taken vit no.95-ferrous 1 tab PO QAM 11/23/22 05/07/24 05/07/24 05:00 fumarate 28 mg-folic acid 800 mcg tablet () acetone (urine) test (Ketone Urine #50 ea 10/26/23 05/06/24 Unknown Test strips) blood sugar diagnostic (OneTouch #150 ea 10/26/23 05/06/24 Unknown Verio test strips) blood-glucose meter (OneTouch #1 ea 10/26/23 05/06/24 Unknown Verio Reflect Meter) lancets 33 gauge (OneTouch Delica #150 ea 10/26/23 05/06/24 Unknown Plus Lancet) Active Medications Generic Name Dose Route Start Last Admin Trade Name Freq PRN Reason Stop Dose Admin Lactated Ringer's 1,000 mls @ 125 mls/hr 05/07/24 07:55 05/07/24 09:36 Lr IV 05/09/24 07:54 50 mls/hr .Q8H PRN Administration L&D Protocol Protocol Oxytocin 30 units in 500 mls @ 6 mls/hr 05/07/24 09:03 05/07/24 10:40 Pitocin 30 Units/Nss IV 05/09/24 09:02 0.36 units/hr .Q24H PRN 6 mls/hr Labor Induction/Augmentation Titration Protocol 0.36 UNITS/HR Past Medical History Medical History Migraine Pulmonary embolism 04/05/2022--[place] [facility] [place] had a bunch of testing (nothing found), pt had been sick for 3 days prior and was in bed not moving ??--was on eliquis, taken off 06/2022--no issues since Cholestatic pruritus Miscarriage Acute kidney failure following labor and delivery 2016. NO PROBLEMS CURRENTLY. Pleurisy H/O Exercise / Class Metabolic Activity II 4-5 Yardwork/Stairs/Walk up hill Past Family History Family History Grandfather (Maternal) FHx: brain cancer Family/Other FHx: skin cancer Mother Dyslipidemia Hepatitis A History of thyroid disorder Hypertension Father Dyslipidemia Hypertension Other No family history of adverse response to anesthesia Denies family history of Ovarian cancer Breast cancer Colorectal cancer Past Surgical History Surgical History History of esophagogastroduodenoscopy (EGD) History of colonoscopy History of dilatation and curettage X4 D&E H/O wisdom tooth extraction Past Anesthesia History No Hx of Anesthesia Complications and No Family Hx of Anesthesia Complications History of PONV No Hx of PONV and No Hx of Motion Sickness Social History Smoking Status: Never smoker Do You Dip or Chew Tobacco: No Hx Alcohol Use: No Hx Substance Use: No substance use type: does not use Physical Exam Vital Signs Last Vital Signs Temp 37.2 C 05/07/24 11:58 Pulse 85 05/07/24 13:20 Resp 18 05/07/24 11:58 BP 115/70 05/07/24 13:15 Pulse Ox 99 05/07/24 13:20 ENMT Mouth: no dentition abnormality Thyromental Distance: > or= 3.5 Finger Breadths Mallampati Class: II Neck normal visual inspection Respiratory normal respiratory effort Auscultation: lungs clear to auscultation bilaterally Cardiovascular Rate/Rhythm: regular rate and regular rhythm Psychiatric Orientation: alert Testing Laboratory Results 05/07/24 08:05 Blood Type B Positive 05/07/24 08:05 Blood Type Cancelled 05/07/24 08:05 Antibody Screen Cancelled 05/07/24 08:05 Antibody Screen NEGATIVE 05/07/24 08:05
[2024-05-07] MEDS: fentANYL 2 MCG/ML BUPIVacaine 0.125%-NSS 100ML BAG ONE (13:31)
[2024-05-07] MEDS: BUPIVACAINE 0.25% PF 30 ML VIAL ONE (13:41)
[2024-05-07] MEDS: SODIUM CHLORIDE 0.9% PF INJ 10 ML VIAL ONE (13:41)
[2024-05-07] MEDS: LIDOCAINE 2%/EPINEPHRINE 1:200,000 20 ML PF ONE (13:41)
[2024-05-07] MEDS: ePHEDrine sulfate 50 MG/ML AMP ONE (15:03)
[2024-05-07] MEDS: ONDANSETRON INJ 2 MG/ML 2 ML VIAL IV PRN (15:55)
[2024-05-07] MEDS: fentaNYL citrate PF 100 MCG/2 ML VIAL ONE (17:19)
[2024-05-07] MEDS: LIDOCAINE 2%/EPINEPHRINE 1:200,000 20 ML PF EPI STA (17:20)
[2024-05-07] MEDS: SODIUM CHLORIDE 0.9% PF INJ 10 ML VIAL EPI STA (17:20)
[2024-05-07] MEDS: BUPIVACAINE 0.25% PF 30 ML VIAL EPI STA (17:20)
[2024-05-07] MEDS: fentaNYL citrate PF 100 MCG/2 ML VIAL EPI STA (17:20)
[2024-05-07] MEDS: fentANYL 2 MCG/ML BUPIVacaine 0.125%-NSS 100ML BAG EPI PRN (22:58)
[2024-05-07] MEDS ORDERED: ACETAMINOPHEN 325 MG TAB PO PRN (23:01)
--- NOTE | 2024-05-07 23:55 | Delivery Summary ---
Vaginal Delivery Summary Date of Service May 07, 2024 Vaginal Delivery Summary Patient induced at 39 weeks with Pitocin artificial rupture membranes when she was 3 cm requested epidural progress was somewhat slow then but she progressed to fully dilated and then pushed over several contractions delivering a baby in occiput anterior position once the head was born fluid was clear still at this stage there was a loose nuchal cord that was passed over the head gentle traction on the baby with an easy delivery no excessive force. Baby was placed on maternal abdomen there was some terminal meconium Cord clamped and cut cord blood obtained there was no tearing placenta was removed with traction there was a small edge of membranes that was palpated near the cervix using a ring forcep I was able to extract this and then fully extract the membranes IV Pitocin was started uterine tone improved QBL was 329 mL sponge and instrument counts correct [facility] Vaginal Delivery Charge Delivery Type Details: [facility]
[2024-05-08] MEDS ORDERED: DIPHTHER/TETAN/PERTUS Vaccine (Tdap, Adol/Adult) 0.5mL IM ONE (00:31)
[2024-05-08] MEDS ORDERED: bisacodyL 10 MG SUPP PR PRN (00:31)
[2024-05-08] MEDS ORDERED: OXYTOCIN 30 UNITS/NSS 30 UNITS/500 ML BAG IV PRN (00:31)
[2024-05-08] MEDS ORDERED: oxyCODONE/ACETAMINOPHEN 5mg/325mg TAB PO PRN (00:31)
[2024-05-08] MEDS ORDERED: ACETAMINOPHEN 325 MG TAB PO PRN (00:31)
[2024-05-08] MEDS ORDERED: BENZOCAINE 20% SPRY 85 APPLN/85 GM CAN EXT PRN (00:31)
[2024-05-08] MEDS ORDERED: HYDROCORTISONE ACETATE 25 MG SUPP PR PRN (00:31)
--- NOTE | 2024-05-08 02:36 | Anesthesia Procedure Note ---
Date of Service May 08, 2024 Anesthesia Post Epidural Note Vital Signs Vital Signs: Temp Pulse Resp BP Pulse Ox 36.8 C 94 H 18 99/56 L 97 05/08/24 01:25 05/08/24 01:55 05/08/24 01:25 05/08/24 01:55 05/07/24 23:54 Pain Intensity Lower Medial Perineal: Pain Intensity: 4 Notes Mental Status: alert / awake / arousable and participated in evaluation Patient Amnestic to Procedure: No Nausea / Vomiting: adequately controlled Pain: adequately controlled Airway Patency, RR, SpO2: stable & adequate BP & HR: stable & adequate Hydration State: stable & adequate Neuraxial Anesthesia: was administered and sensory block resolved Anesthetic Complications: no major complications apparent and Pt Satisfied with anesthetic care Epidural: Removed without complications and With tip intact
--- NOTE | 2024-05-08 06:27 | Obstetrical Progress Note ---
Date of Service <Emigdio OrtezTisha Weinberg DO - Last Filed: 05/09/24 13:18> May 08, 2024 Assessment & Plan <Emigdio BryantDO blaine - Last Filed: 05/09/24 13:18> (1) state: Patient is a 39yo day 1 s/p Feels well today, BP and temp slightly low but otherwise VSS. Continue care Ambulation and as tolerated Pain control w/ ibuprofen as needed Hgb: 10.1, down from 11.1 day prior WBCs elevated to 17.08, up from 8.3 day prior Discuss discharge home tomorrow Follow up with Dr. Khanna in 6wks (2) Leukocytosis: WBCs 17.08 up from 8.3 day prior Monitor for signs of infection Leukocytosis type: unspecified Qualified Code(s): D72.829 - Elevated white blood cell count, unspecified <Alfredo Khanna MD, FACOG - Last Filed: 05/09/24 15:48> (1) state: (2) Leukocytosis: Subjective <Emigdio OrtezTisha Weinberg DO - Last Filed: 05/09/24 13:18> Patient is a 39yo day 1 s/p . Ambulation: yes Voiding: has urinated, no BM yet Passing gas: yes Diet tolerance: vomiting yesterday, but has since been able to tolerate some bread Lochia: small Feeding type: breast, supplementing with similac Current pain: minimal Resting comfortably this AM in NAD Denies fever, body aches, chills, headache, SOB, n/v/d, abdominal pain, LE swelling/pain, or numbness/tingling. Review of Systems as above Physical Exam <Emigdio NeelimaTisha Weinberg DO - Last Filed: 05/09/24 13:18> General: A&Ox4, patient resting comfortably, nontoxic in appearance Skin: warm, dry, intact HEENT: NC/AT, anicteric sclerae, conjunctiva w/o injection, moist mucous membranes Heart: +s1/s2, RRR, no murmur, rubs, or gallops Lungs: equal air entry b/l, clear to auscultation b/l, no wheezes/rales/rhonchi Abd: +BS, abdomen mildly tender to palpation, uterus firm, fundus at level of umbilicus Ext: no swelling/erythema, no tenderness to palpation, no clubbing/cyanosis Neuro: speech intact, no facial droop, moves all extremities on command and spontaneously Supervising Physician <Alfredo Khanna MD, FACOG - Last Filed: 05/09/24 15:48> Co-Signing Physician Notes Resident Physician Supervision Note: I was present with Dr. Suarez during the history and exam. I discussed the case with the resident and agree with the findings and plan as documented in the note. Any exceptions or clarifications are listed here: [None] Documented By: Alfredo Khanna MD, FACOG Resident Activity Tracking <Emigdio Weinberg DO - Last Filed: 05/09/24 13:18> Resident Involvement: Resident Care Provided Care Provided: OB Delivery
[2024-05-08 07:05] LABS: Hematocrit (blood only) 30.1 % (37.0-47.0); Hemoglobin 10.1 g/dl (12.0-16.0); Mean Corpuscular Hemoglobin 28.1 pg (25.0-34.0); Mean Corpuscular Hgb Conc 33.6 g/dL (32.0-36.0); Mean Corpuscular Volume 83.8 fL (80.0-100.0); Mean Platelet Volume 10.9 fL (9.4-12.4); Platelet Count 322 K/uL (130-400); RDW Coefficient of Variation 16.2 % (11.5-14.5); RDW Standard Deviation 49.3 fL (36.4-46.3); Red Blood Count 3.59 M/uL (4.20-5.40); White Blood Count 17.03 K/ul (4.8-10.8)
[2024-05-08] MEDS: DOCUSATE SODIUM 100 MG CAP PO SCH (08:13)
[2024-05-08] MEDS: IBUPROFEN 600 MG TAB PO PRN (08:13)
[2024-05-08] MEDS: PRENATAL VITAMIN 1 TAB PO SCH (08:13)
[2024-05-08] MEDS: bisacodyL 5 MG TABEC PO SCH (19:45)
[2024-05-08 23:38] VITALS: RESP 16; TEMP 97.5
--- NOTE | 2024-05-09 05:48 | Obstetrical Progress Note ---
Date of Service <Emigdio Houserbenson - Last Filed: 05/09/24 06:40> May 09, 2024 Assessment & Plan <Emigdio Houserbenson - Last Filed: 05/09/24 06:40> (1) state: Patient is a 39yo day 2 s/p Feels well today, BP and temp slightly low but otherwise VSS. Continue care Ambulation and as tolerated Pain control w/ ibuprofen as needed Hgb: 10.1 -> 10.7 today No signs of infection Discharge home after breakfast if possible Follow up with Dr. Khanna in 6wks (2) Leukocytosis: no signs of infection CBC prior to discharge Leukocytosis type: unspecified Qualified Code(s): D72.829 - Elevated white blood cell count, unspecified <Xi Betts, DO - Last Filed: 05/09/24 07:00> (1) state: (2) Leukocytosis: no signs of infection Subjective <Emigdio Bryantblaine - Last Filed: 05/09/24 06:40> Patient is a 39yo day 2 s/p . Ambulation: yes Voiding: has urinated and had BM Passing gas: yes Diet tolerance: tolerating OB regular now Lochia: small Feeding type: breast, supplementing with similac Current pain: moderate lower abd pain Resting comfortably this AM in NAD Denies fever, body aches, chills, headache, SOB, n/v/d, abdominal pain, LE swelling/pain, or numbness/tingling. Physical Exam <Emigdio OrtezTisha Weinberg - Last Filed: 05/09/24 06:40> General: A&Ox4, patient resting comfortably, nontoxic in appearance Skin: warm, dry, intact HEENT: NC/AT, anicteric sclerae, conjunctiva w/o injection, moist mucous membranes Heart: +s1/s2, RRR, no murmur, rubs, or gallops Lungs: equal air entry b/l, clear to auscultation b/l, no wheezes/rales/rhonchi Abd: +BS, abdomen mildly tender to palpation, uterus firm, fundus at level and right of umbilicus Ext: no swelling/erythema, no tenderness to palpation, no clubbing/cyanosis Neuro: speech intact, no facial droop, moves all extremities on command and spontaneously Results & Data <Emigdio Weinberg DO - Last Filed: 05/09/24 06:40> Vital Signs (Past 12 Hours) Vital Signs Temp Pulse Resp BP Pulse Ox O2 Del Method 05/08/24 23:30 36.4 C L 79 16 108/69 99 Room Air 05/08/24 19:40 36.3 C L 97 H 20 102/64 96 Room Air Supervising Physician <Xi Betts DO - Last Filed: 05/09/24 07:00> Co-Signing Physician Notes Resident Physician Supervision Note: I interviewed and examined the patient. Discussed with Dr. Weinberg and agree with findings and plan as documented in the note. Any exceptions or clarifications are listed here: PPD#2 doing well, DC home. 6w PP followup. Documented By: Xi Betts DO Resident Activity Tracking <Emigdio Weinberg DO - Last Filed: 05/09/24 06:40> Resident Involvement: Resident Care Provided Care Provided: OB Delivery
[2024-05-09 06:07] LABS: Hematocrit (blood only) 31.6 % (37.0-47.0); Hemoglobin 10.7 g/dl (12.0-16.0)
[2024-05-09 07:21] LABS: Mean Corpuscular Hemoglobin 27.9 pg (25.0-34.0); Mean Platelet Volume 11.3 fL (9.4-12.4); Platelet Count 351 K/uL (130-400); RDW Coefficient of Variation 16.5 % (11.5-14.5); RDW Standard Deviation 50.4 fL (36.4-46.3); Red Blood Count 3.83 M/uL (4.20-5.40); White Blood Count 7.48 K/ul (4.8-10.8)
[2024-05-09 07:54] VITALS: BP 101/69; PULSE 90; O2SAT 98
[2024-05-09 08:20] LABS: Mean Corpuscular Hgb Conc 33.9 g/dL (32.0-36.0); Mean Corpuscular Volume 83.4 fL (80.0-100.0)
== END 2024-05-09 10:35 | disposition home or self-care (01) | DRG 806 ==
LOC: 4S1 07:35 → 4E2 05-08 02:46
DX: Z37.0 Single live birth; O99.13 Other diseases of the blood and blood-forming organs and certain disorders involving the immune mechanism complicating the puerperium; O77.0 Labor and delivery complicated by meconium in amniotic fluid; D72.829 Elevated white blood cell count, unspecified; O69.81X0 Labor and delivery complicated by cord around neck, without compression, not applicable or unspecified; Z3A.39 39 weeks gestation of pregnancy